=== PATIENT | female | born 1985 | race Caucasian/White ===

== ENCOUNTER 2020-07-09 09:44 | Inpatient (IN) | payer OTHER ==
[2020-07-09] VITALS (16 sets, daily range): BP systolic 77–131; BP diastolic 42–89
[~2020-07-09] VITALS: Ht 170.2 cm; Wt 62.2 kg
[~2020-07-09 09:44] MED LIST: OMEPRAZOLE 20 M20 M1 PO; STOOL SOFTENER100 MG PO; ZYRTEC10 M5 PO
[2020-07-09 10:15] LABS: HCO3 15.3 mmol/L (22.0-26.0); PCO2 78.2 mmHg (35.0-45.0); PO2 473.4 mmHg (80.0-100.0); pH 6.909 (7.360-7.450); sO2 99.7 % (92.0-98.0)
[2020-07-09 10:25] LABS: BASOPHILS 0.8 % (0.0-2.0); HEMATOCRIT 28.1 % (37.0-47.0); HEMOGLOBIN 8.4 gm/dL (12.0-15.0); LYMPHOCYTES 39.9 % (24.0-44.0); MCH 26.1 pg (26.0-34.0); MCHC 29.8 g/dL (28.0-37.0); MCV 87.4 fL (80.0-100.0); MONOCYTES 9.8 % (1.0-8.0); PLATELET COUNT 253 thou/uL (150-400); POLYS 48.5 % (36.0-66.0); RBC 3.22 mil/uL (4.20-5.00); RDW 16.8 % (10.5-14.5); WBC 18.7 thou/uL (4.0-11.0)
[2020-07-09 10:41] LABS: CALCIUM 8.8 mg/dL (8.5-10.1); CREATININE 1.3 mg/dL (0.6-1.0); POTASSIUM 4.2 mmol/L (3.5-5.1)
[2020-07-09 10:52] LABS: ALBUMIN 2.9 g/dL (3.4-5.0); MAGNESIUM 2.3 mg/dL (1.8-2.4); TOTAL BILIRUBIN 0.5 mg/dL (0.2-1.0); TOTAL PROTEIN 6.2 g/dL (6.4-8.2); TROPONIN-I 0.08 ng/mL (<0.06)
[2020-07-09 11:49] LABS: URINE BILIRUBIN NEGATIVE (Negative); URINE BLOOD 1+ (Negative); URINE CLARITY CLEAR; URINE COLOR YELLOW; URINE GLUCOSE-RANDOM* NEGATIVE (Negative); URINE KETONES TRACE (Negative); URINE LEUKOCYTES-REFLEX NEGATIVE (Negative); URINE NITRITE-REFLEX NEGATIVE (Negative); URINE PROTEIN (DIPSTICK) 2+ (Negative); URINE UROBILINOGEN 0.2 E.U./dl (0.2-1.0)
[2020-07-09 11:58] LABS: AMP/METHAMP Negative (Negative); BARBITURATES Negative (Negative); BENZODIAZEPINES Negative (Negative); COCAINE Negative (Negative); METHADONE Negative (Negative); OPIATES Negative (Negative); PCP Negative (Negative)
[2020-07-09 12:15] LABS: APTT 22.7 Seconds (24.5-32.8); INR 1.1
[2020-07-09 12:23] LABS: MUCUS >6 Heavy strn/LPF (None Seen); SQUAMOUS 0-3 Few /LPF (0-3)
[2020-07-09 12:24] LABS: BACTERIA-REFLEX 1-9 Few /HPF (None Seen); CASTS None Seen /LPF (None Seen); CRYSTALS None Seen /LPF (None Seen); URINE RBC 0-2 Rare /HPF (0-2); URINE WBC-REFLEX 0-5 Rare /HPF (0-5)
[2020-07-09 13:43] LABS: HCO3 16.1 mmol/L (22.0-26.0); PCO2 41.1 mmHg (35.0-45.0); PO2 116.7 mmHg (80.0-100.0); sO2 97.4 % (92.0-98.0)
[2020-07-09 13:44] LABS: pH 7.211 (7.360-7.450)
--- NOTE | 2020-07-09 14:17 | NUR ---
CONSULTED TO PLACE A CENTRAL LINE FOR A PATIENT THAT NEEDES URGENT ACCESS. ORDER NOTED AND CONSENT PER MEDICAL NECESSITY BY DR. HOGAN. THE RIGHT JUGULAR VEIN WAS WIDLEY PATENT. THE PATIENT IS NOT SEDATED AND RESTLESS/INTUBATED. A #6F TRIPLE LUMEN POWER INJECTABLE CENTRAL LINE WAS PLACED PER POLICY AFTER A BEDSIDE TIMEOUT WAS COMPLETED. THE LINE WAS 25CM AND ADVANCED TO 7CM EXTERNAL. A STAT CHEST XRAY CONFIRMED LINE IN ADQQAUTE POSITION. LINE RELEASED FOR USE- PATIENT CONTINUES TO BE RESTLESS- DRESSING NOTED, BLEEDING AT SITE- DRG CHG AND GAUZE PLACED
--- NOTE | 2020-07-09 17:33 | NUR ---
CALLED DAUGHTER (EMERGENCY CONTACT) NO ANSWER JOSI MORALES- BOYFRIEND [phone]
--- NOTE | 2020-07-09 20:07 | NUR ---
1445 REPORT RECEIVED FROM ER NURSE. 1500 PT ARRIVED ON FLOOR WITH ER NURSE, RT AND PAC. PT ON VENT SETTINGS AND SEDATION DRIPS CHARTED. FAMILY ROBBIE MORALES) NOTIFIED. UPDATED ON PT CONDITION.
--- NOTE | 2020-07-09 20:15 | NUR ---
CALLED PHARMACY WITH DR. BETHEA'S ORDERS OF REMDESIVIR "CALL PHARMACY TO DOSE WITH LOADING DOSE AND THEN X5DAYS." PHARMACY STATES THAT THE APPROVAL COMES FROM DR. RIBEIRO, STATES THEY WILL CALL HIM AND CALL THIS RN BACK
[2020-07-10] VITALS (49 sets, daily range): BP systolic 85–139; BP diastolic 48–103
--- NOTE | 2020-07-10 01:30 | NUR ---
SENT [facility] TOP FOR APTT AT 0000 WITH [employer] WHEN DRAWING TYPE AND SCREEN. RECIEVED CALL AT 0100 FROM LAB THAT STATED THEY COULD NOT USE BLUE TOP AND THAT THEY NEEDED ANOTHER, NO REASON GIVEN. [facility]UE [facility] SENT FOR HEPARIN GTT APTT
[2020-07-10 05:36] LABS: BE(vivo) -7.3 mmol/L (-2 to +3); HCO3 17.8 mmol/L (22.0-26.0); PCO2 33.9 mmHg (35.0-45.0); PO2 249.7 mmHg (80.0-100.0); pH 7.338 (7.360-7.450); sO2 99.5 % (92.0-98.0)
[2020-07-10 05:50] LABS: HEMATOCRIT 23.6 % (37.0-47.0); HEMOGLOBIN 7.5 gm/dL (12.0-15.0); MCH 26.4 pg (26.0-34.0); MCHC 31.8 g/dL (28.0-37.0); RBC 2.84 mil/uL (4.20-5.00); RDW 16.9 % (10.5-14.5); WBC 11.3 thou/uL (4.0-11.0)
[2020-07-10 07:39] LABS: CREATININE 0.7 mg/dL (0.6-1.0); POTASSIUM 4.3 mmol/L (3.5-5.1)
[2020-07-10 07:42] LABS: CALCIUM 6.6 mg/dL (8.5-10.1)
--- NOTE | 2020-07-10 11:01 | HC ---
[facility] [place] [address] CONSULTATION Name: ALY JUSTICE Room #: 246-P ADM IN M.R.#: [id number] Admission: 07/09/20 Attend Phys: Brijesh Lazo MD Discharge: Date of : 83 Report #: [id number] THIS REPORT FOR: cc: FAM - Family physician unknown FAM - Family physician unknown Héctor Pryor MD ~ CC: Seamus Yuen [facility] unknown Darron López DATE OF SERVICE: 07/10/2020 INFECTIOUS DISEASE CONSULTATION ATTENDING PHYSICIAN: Dr. Lazo. REASON FOR EVALUATION: COVID-19 infection as well as positive influenza studies. The patient presented in extremis with multiple PEs. HISTORY OF PRESENT ILLNESS: History is gleaned from the chart given the patient's intubated status. A 35-year-old apparently been reasonably healthy, had been feeling fairly well the morning of admission, which was yesterday. At some point became weak, subsequently had a seizure, was found to be quite a bit of distress secondary to chest pain and shortness of breath prior to that as well, stomach pain. On evaluation, she did become agonal and did require resuscitative efforts. She was evaluated including imaging, which showed multiple bilateral pulmonary emboli as well as infiltrates, question of pneumonitis. She did test positive for COVID. It is notable she also tested positive for influenza A and B. 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 She is intubated at this point, maintained on ventilatory support as well as some pressor support due to hemodynamic lability with some hypotension. She was empirically started on antibacterials with Zosyn, given convalescent plasma. ALLERGIES: None known. MEDICATIONS: Currently include dexamethasone, propofol, Zosyn, famotidine, norepinephrine, p.r.n. analgesics, antiemetics, dexmedetomidine. PAST MEDICAL HISTORY: History of anemia, reflux, previous appendectomy. 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 FAMILY HISTORY: Noncontributory. [facility] [address] [place] [address] [facility] #: formerly [facility] IN M.R.#: [id number] Admission: 07/09/20 Attend Phys: Brijesh Lazo MD Discharge: Date of : 83 Report #: [id number] REVIEW OF SYSTEMS: Unobtainable. PHYSICAL EXAMINATION: GENERAL: She does arouse, opens her eyes. She moves her right upper extremity, although it is restrained. She is not evidently trying to communicate. VITAL SIGNS: Temperature 99.6 axillary, pulse 94, respirations 24, blood pressure is 96/62. SKIN: Warm. NECK: Apparently supple. ET and OG tubes in place. LUNGS: Scattered coarse breath sounds. HEART: Borderline tachycardic. I do not appreciate a murmur. ABDOMEN: Soft, may be some mild guarding. There are no peritoneal signs. GENITOURINARY AND RECTAL: Deferred. LABORATORY DATA: Troponin elevated at 0.9. CBC: White count 11.3, H and H 7.5 and 23.6, platelets of 237. ABGs: pH 7.338, pCO2 of 33.9, pO2 of 249.7 with an FiO2 of 0.6 on the vent. Ferritin of 17. LDH of 751. CRP of 13.9. Confirmed COVID positive. Chest x-ray showed multifocal consolidation consistent with pneumonia. CT as described above. TSH of 4.638. Urinalysis, 0-[address] of the head showed no acute process. ProBNP of 384. Alcohol less than 10. Previous differential showed she was not lymphocytopenic. ASSESSMENT AND PLAN: 1. COVID-19 infection, complicated by respiratory failure, multiple pulmonary emboli, possible aspiration pneumonitis. 2. Seizures, likely due to the above with hypoxemia. 3. Positive antigen testing for influenza, although A and B it is not clear if this represents a true positive. We will continue current therapy. If able to use NG, we will add Tamiflu to the regimen, had felt remdesivir may be a benefit as well, although she is critically ill I do not think it is precisely due to the cytokine storm at this point and given the inflammatory markers, I think given all the parameters certainly may be worthwhile to give additional support. Continue to monitor expectantly. We will discuss with Dr. Yuen. <ELECTRONICALLY SIGNED> By: Héctor Pryor MD 07/10/20 1101 0740 0945 Héctor Pryor MD /nt
[2020-07-11] VITALS (92 sets, daily range): BP systolic 83–144; BP diastolic 53–92
[2020-07-11 06:01] LABS: HEMATOCRIT 23.4 % (37.0-47.0); HEMOGLOBIN 7.2 gm/dL (12.0-15.0); MCH 25.5 pg (26.0-34.0); MCHC 30.7 g/dL (28.0-37.0); MCV 83.1 fL (80.0-100.0); RBC 2.81 mil/uL (4.20-5.00); WBC 11.9 thou/uL (4.0-11.0)
[2020-07-11 06:03] LABS: CALCIUM 7.6 mg/dL (8.5-10.1); CREATININE 0.5 mg/dL (0.6-1.0); POTASSIUM 3.8 mmol/L (3.5-5.1)
--- NOTE | 2020-07-11 06:59 | NUR ---
VSS. PATIENT SR/SB ON MONITOR. BLOOD PRESSURE MAINTAINED ON LEVO GTT. SEDATED ON PRECEDEX, FENTANYL, AND PROPOFOL GTTS. TOTAL URINE OUTPUT OVERNIGHT IS 1000 CC. BLOOD GLUCOSE 110. PATIENT ON HEPARIN GTT. PATIENT FOLLOWS COMMANDS DURING SEDATION VACATION. UPDATED FAMILY VIA PHONE THIS SHIFT. PATIENT PROGRESSING TOWARDS PLAN OF CARE.
--- NOTE | 2020-07-11 07:33 | EKG ---
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[facility] 1985 Requested By: Seamus Skelton Order Number: [id number] MD: Familia Everett Measurements Intervals [place] Rate: 112 P: 85 LA: 131 QRS: 66 QRSD: 103 T: 29 QT: 296 QTc: 404 Interpretive Statements Sinus tachycardia Ventricular premature complexes RSR' in V1 or V2, probably normal variant No previous ECG available for comparison Electronically Signed On 07-11-2020 7:33:39 CDT by Familia Everett [email or web address] <ELECTRONICALLY SIGNED> By: Familia Everett MD, FACC 07/11/20 0733 1008 1008 Familia Everett MD, [facility] /EPI
[2020-07-11 12:27] LABS: ALBUMIN 2.2 g/dL (3.4-5.0); DIRECT BILIRUBIN 0.2 mg/dL (<0.1-0.2); TOTAL BILIRUBIN 0.4 mg/dL (0.2-1.0); TOTAL PROTEIN 5.1 g/dL (6.4-8.2)
--- NOTE | 2020-07-11 15:30 | NUR ---
chart review. cm unable to visit with tania wilde r/o and + for flu a and b conserving on ppe. she is intubated. jeffrey visited with sig juhi nickolas, daughter listed is only 4 years old, just would like updates since she is family person, i am only link to be able to give her mom and sister information in [place], that's were she is from. she was independent prior to hospital and few days ago was going in for egd and did not go well, they took her to [facility] and then was set up for another on tomorrow. since i was told not able to get her personal belonging would like them locked up with security. i am able to care for out medhat while she in the hospital. rodo and out daughter live in apartment with full fight stairs up to apartment then the wash area. she was independent prior to hospital per nickolas. jeffrey passed on information to bedside nurse to call sig other for question. will cont following as needed for dc needs.
--- NOTE | 2020-07-11 19:51 | NUR ---
ASSUMED CARE AT 0700. ADEQUATE UOP. SMALL BM TODAY. TEMPERATURE UNABLE TO BE OBTAINED THROUGHOUT THE DAY. МАРИНА HUGGER IN PLACE. POTENTIAL FOR CPAP TRIAL TOMORROW. VENTILATOR SETTINGS UNCHANGED. HEPARIN GTT, PROPOFOL GTT, FENTANYL GTT IN PLACE. PATIENT WEANED OFF LEVOPHED AND PRECEDEX AND TOLERATED IT WELL. SEDATION VACATION TOLERATED WELL. SIGNIFICANT OTHER WAS UPDATED AND EDUCATED ON PATIENT CONDITION AND PLAN OF CARE AT 0815. WOULD LIKE TO BE UPDATED BY NURSING STAFF ONCE A DAY ON PATIENT. CVP MONITOR IN PLACE. PATIENT SLOWLY PROGRESSING TOWARDS THE PLAN OF CARE.
[2020-07-12] VITALS (82 sets, daily range): BP systolic 68–161; BP diastolic 34–139
[2020-07-12 06:32] LABS: MCH 26.7 pg (26.0-34.0); MCHC 32.6 g/dL (28.0-37.0); MCV 81.8 fL (80.0-100.0); RBC 2.35 mil/uL (4.20-5.00); RDW 17.4 % (10.5-14.5); WBC 10.8 thou/uL (4.0-11.0)
[2020-07-12 06:37] LABS: CALCIUM 7.7 mg/dL (8.5-10.1); CREATININE 0.6 mg/dL (0.6-1.0); POTASSIUM 3.6 mmol/L (3.5-5.1)
[2020-07-12 06:45] LABS: HEMATOCRIT 19.2 % (37.0-47.0); HEMOGLOBIN 6.3 gm/dL (12.0-15.0)
[2020-07-12 09:15] LABS: BE(vivo) -5.5 mmol/L (-2 to +3); PCO2 32.1 mmHg (35.0-45.0); PO2 121.2 mmHg (80.0-100.0); pH 7.389 (7.360-7.450); sO2 98.4 % (92.0-98.0)
--- NOTE | 2020-07-12 12:00 | NUR ---
0730 FLUID BOLUS GIVEN FOR LOW BP AND MAP. 0745 TRISTEN PAGED FOR HGB 6.3, ORDERS TO GIVE 2 UNITS AND RECHECK CBC. 1030 FAMILY FROM [facility] CALLED, CONFIRM WAS SISTER, SHE KNEW PT FULL NAME AND , DAUGHTER FULL NAME, PT SIG OTHER NAME, AND WHAT CITY PT RESIDES IN. FRITZ MORLEY MOTHER LIVES IN [facility]-[phone] HORACIO HUNT SISTER LIVES IN [facility]-[phone] 1015 1 UNIT OF BLOOD STARTED.
[2020-07-12 13:12] LABS: % SATURATION 14 % (20-39); IRON 28 ug/dL (50-170); TIBC 203 ug/dL (250-450)
[2020-07-12 14:59] LABS: HEMATOCRIT 27.3 % (37.0-47.0); MCV 84.7 fL (80.0-100.0); RBC 3.23 mil/uL (4.20-5.00); RDW 16.7 % (10.5-14.5); WBC 14.7 thou/uL (4.0-11.0)
[2020-07-13] VITALS (104 sets, daily range): BP systolic 90–123; BP diastolic 55–82
[2020-07-13 06:13] LABS: HEMATOCRIT 27.4 % (37.0-47.0); HEMOGLOBIN 8.9 gm/dL (12.0-15.0); MCH 27.7 pg (26.0-34.0); MCHC 32.6 g/dL (28.0-37.0); MCV 84.9 fL (80.0-100.0); RBC 3.23 mil/uL (4.20-5.00); RDW 16.2 % (10.5-14.5); WBC 14.9 thou/uL (4.0-11.0)
[2020-07-13 06:46] LABS: CALCIUM 8.2 mg/dL (8.5-10.1); CREATININE 0.8 mg/dL (0.6-1.0); POTASSIUM 3.4 mmol/L (3.5-5.1)
--- NOTE | 2020-07-13 14:13 | 2DMMODE ---
[facility] [address] [place] [address] 2 D/M-MODE ECHOCARDIOGRAM Name: ALY JUSTICE Room #: 246-P ADM IN M.R.#: [id number] Admission: 07/09/20 Attend Phys: Brijesh Lazo MD Discharge: Date of : 83 Report #: [id number] THIS REPORT FOR: cc: FAM - Family physician unknown FAM - Family physician unknown Darron Ashton MD ~ APPROVED REPORT Study performed: 07/13/2020 12:54:01 EXAM: Comprehensive 2D, Doppler, and color-flow Echocardiogram Patient Location: ICU Room #: 246 Status: routine BSA: 1.91 HR: 76 bpm BP: 102/67 mmHg Rhythm: NSR Other Information Study Quality: Good; patient on vent. Indications Pulmonary Embolism Check PA pressures, hypotension. 2D Dimensions RVDd: 38.90 mm IVSd: 10.21 (7-11mm) LVOT Diam: 20.31 (18-24mm) LVDd: 31.76 mm PWd: 8.26 (7-11mm) Ascending Ao: 28.35 (22-36mm) LVDs: 21.59 (25-40mm) Aortic Root: 31.13 mm Volumes Left Atrial Volume (Systole) Single Plane 4CH: 23.56 mL Single Plane 2CH: 37.43 mL LA ESV Index: 18.00 mL/m2 Aortic Valve AoV Peak Fly.: 1.11 m/s AO Peak Gr.: 4.89 mmHg LVOT Max P.10 mmHg LVOT Max V: 1.01 m/s SASHA Vmax: 2.97 cm2 [facility] [address] [place] [address] 2 D/M-MODE ECHOCARDIOGRAM Name: ALY JUSTICE Room #: 246-P [facility] IN Roselyn.#: [id number] Admission: 07/09/20 Attend Phys: Brijesh Lazo MD Discharge: Date of : 83 Report #: [id number] Mitral Valve E/A Ratio: 1.5 MV Decel. Time: 217.14 ms MV E Max Fly.: 0.74 m/s MV A Fly.: 0.51 m/s MV PHT: 62.97 ms IVRT: 110.73 ms Pulmonary Valve PV Peak Fly.: 0.88 m/s PV Peak Gr.: 3.10 mmHg Pulmonary Vein P Vein S: 0.49 m/s P Vein A: 0.25 m/s P Vein D: 0.31 m/s P Vein A Dur.: 115.3 msec P Vein S/D Ratio: 1.58 Tricuspid Valve TR Peak Fly.: 2.96 m/s RAP Estimate: 10.00 mmHg TR Peak Gr.: 35.14 mmHg PA Pressure: 45.00 mmHg Left Ventricle The left ventricle is normal size. There is normal LV segmental wall motion. There is normal left ventricular wall thickness. The left ventricular systolic function is normal. LVEF is 55-60%. The left ventricular diastolic function is normal. Right Ventricle The right ventricle is normal size. The right ventricular systolic function is normal. Atria The left atrium size is normal. The right atrium size is normal. Aortic Valve The aortic valve is normal in structure. No aortic regurgitation is present. There is no aortic valvular stenosis. Mitral Valve The mitral valve is normal in structure. There is no mitral valve regurgitation noted. No evidence of mitral valve stenosis. Tricuspid Valve The tricuspid valve is normal in structure. Mild tricuspid [facility] [address] [place] [address] 2 D/M-MODE ECHOCARDIOGRAM Name: ALY JUSTICE Room #: 246-P ADM IN M.R.#: [id number] Admission: 07/09/20 Attend Phys: Brijesh Lazo MD Discharge: Date of : 83 Report #: [id number] regurgitation. Estimated PAP 45mmHg. Pulmonic Valve The pulmonary valve is normal in structure. Mild pulmonic regurgitation. Great Vessels The aortic root is normal in size. The ascending aorta is normal in size. IVC is normal in size and collapses <50% with inspiration. Pericardium There is no pericardial effusion. <Conclusion> The left ventricle is normal size. The right ventricular systolic function is normal. The right ventricle is normal size. The aortic valve is normal in structure. The mitral valve is normal in structure. The tricuspid valve is normal in structure. Mild tricuspid regurgitation. Estimated PAP 45mmHg. The pulmonary valve is normal in structure. Mild pulmonic regurgitation. There is no pericardial effusion. <ELECTRONICALLY SIGNED> By: Darron Ashton MD 07/13/201412 12 12 Darron Ashton MD /INF
--- NOTE | 2020-07-13 15:34 | NUR ---
APPROACHED BY GI AIR LIFT OPERATOR JORDYN ODONNELL AND UPDATED. PT HAD EGD TODAY SHOWING GASTRIC MASS SUSPICIOUS FOR MALIGNACY, BX PENDING. DR. HINDS HAS CONSULTED ONC AND SURGERY. DR. HINDS SPOKE WITH PT'S MOTHER BY PHONE (LIVES IN [place]) AND MOTHER INQUIRING ABOUT EMERGENCY VISA TO COME TO US. JORDYN INDICATES GI PHYSICIAN WILL ASSIST IF NEEDED FOR MEDICAL VERIFICATION TO SUPPORT REQUEST FOR EMERGENCY VISA. DISCUSSED WITH CM DIRECTOR. CM TO FOLLOW.
--- NOTE | 2020-07-13 19:22 | NUR ---
ASSUMED CARE AT 0700. AFEBRILE. NO BM. VENTILATOR SETTINGS UNCHANGED. PATIENT'S SIGNIFICANT OTHER VISITED AT 1650 AND WAS UPDATED AND EDUCATED ON THE PLAN OF CARE AND PATIENT CONDITION. ENDOSCOPY PERFORMED FROM [id number]. PROPOFOL, PRECEDEX, FENTANYL GTT IN PLACE. HEPARIN GTT IN PLACE. PATIENT TAKEN OUT OF ISOLATION DUE TO 2 NEGATIVE COVID TESTS. TUBE FEEDING BY GRAVITY INITIATED. ADEQUATE UOP. NO CPAP TRIAL TODAY. NO SEDATION VACATION. PATIENT SLOWLY PROGRESSING TOWARDS THE PLAN OF CARE.
[2020-07-14] VITALS (43 sets, daily range): BP systolic 87–118; BP diastolic 45–80
[2020-07-14 02:15] LABS: HEMATOCRIT 25.2 % (37.0-47.0); HEMOGLOBIN 8.2 gm/dL (12.0-15.0); MCH 27.3 pg (26.0-34.0); MCHC 32.7 g/dL (28.0-37.0); MCV 83.7 fL (80.0-100.0); RBC 3.01 mil/uL (4.20-5.00); RDW 17.1 % (10.5-14.5); WBC 11.4 thou/uL (4.0-11.0)
[2020-07-14 02:18] LABS: CALCIUM 7.7 mg/dL (8.5-10.1); CREATININE 0.6 mg/dL (0.6-1.0)
[2020-07-14 02:20] LABS: POTASSIUM 2.9 mmol/L (3.5-5.1)
--- NOTE | 2020-07-14 08:01 | P ---
[facility] [place] [address] PROCEDURE REPORT Name: ALY JUSTICE Room #: 246-P ADM IN M.R.#: [id number] Admission: 07/09/20 Attend Phys: Brijesh Lazo MD Discharge: Date of : 83 Report #: [id number] THIS REPORT FOR: cc: FAM - Family physician unknown FAM - Family physician unknown Jack Woods MD ~ CC: Seamus FLEMING unknown Darron López DATE OF SERVICE: 07/13/2020 UPPER ENDOSCOPY REPORT TIME: 1500 hours in ICU. BED: 246 INDICATIONS: Nausea, vomiting, weight loss, anemia and suspicion of gastric outlet obstruction. The upper adult endoscope was introduced through the mouth, down the esophagus, through the stomach to the second portion of the duodenum and carefully withdrawn for careful inspection. Propofol was used for sedation at the bedside. FINDINGS: 1. A large fungating ulcerated mass at the gastric antrum extending into the first portion of the duodenum suspicious for malignancy with a partially obstructing gastric mass. Biopsies were obtained from the mass. There was about 500 mL of brown fluid suctioned from the gastric fundus. The esophagus was normal. The second portion of the duodenum were normal. RECOMMENDATIONS: To await biopsy results. Obtain a CT abdomen and pelvis for staging. Consult Oncology and Surgery and to do H. pylori stool antigen and treat if positive. The exam was completed. There were no complications. <ELECTRONICALLY SIGNED> By: Jack Woods MD 07/14/20 0801 1509 [id number] Jack Woods MD /kelly
--- NOTE | 2020-07-14 09:15 | NUR ---
ASSUMMED CARE FROM THE NIGHT RN. PATIENT IS SEDATED. SEDATION VACATION 0830 TO 0910. MONITOR SR TO ST WITH RATE UP TO 110 TO 120. BP SLIGHTLY HIGHER. COUGHING AND VOMITING UP PARTIALLY DIGESTED TUBE FEEDING. RESP RATE IN THE UPPER 20'S. WILL FOLLOW SIMPLE COMMANDS, BUT VERY WEAK. TUBE FEEDING BOLUS HELD FOR ELEVATED RESIDUALS. PROPOFOL DECREASED.
--- NOTE | 2020-07-14 13:00 | NUR ---
REPEAT POTASSIUM OF 3.[address] RAMON. ORDERS NOTED. IVF CHANGED AND POTASSIUM DRIP HUNG.
--- NOTE | 2020-07-14 14:28 | NUR ---
cm has letter for tania frankel. cm called sig other nickolas, no answer and voice mail is not set up.
--- NOTE | 2020-07-14 15:00 | NUR ---
PATIENT PLACED ON CPAP TRIAL WITH 5 CM OF PEEP AND 5 CM OF PRESSURE SUPPORT. PRECEDEX INCREASED TO 0.8 MCG/KG/HR. RESP RATE IN THE LOWER 30'S, HEART RATE IN THE 110'S. CONTINOUS HARSH COUGHING, VOMITING AND O2 SAT DECREASING. OG TO LIS FROM TUBE FEEDING AND CPAP TRIAL ABORTED.
--- NOTE | 2020-07-14 19:15 | NUR ---
PATIENT CONTINUES TO HAVE PROLONGED HARSH COUGHING EPISODES. LIPS AND NECK ARE MORE SWOLLEN AND EDEMATOUS THAN EARLIER. DR BROWER NOTIFIED PATIENT HAD RECEIVED PIPERCILLIN. OGT REMAINS TO LIS. REPEAT POTASSIUM WITHIN PARAMATERS. INCONTIENT OF A SM LIQUID YELLOW BROWN STOOL, SOAKED INTO PAD. FORMER IN AND UPDATED ON PATIENT STATUS. HEPARIN DRIP AND SEDATION CONTINUE.
--- NOTE | 2020-07-14 21:36 | NUR ---
[address] HURLEY OF POSITIVE SICKLE CELL RESULTS AND RECCOMENDATION FROM [facility] FOR HEMOGLOBIN FRACTIONATION TESTING. WILL DEFER TO DR BRAR AT THIS TIME.
[2020-07-15] VITALS (45 sets, daily range): BP systolic 88–108; BP diastolic 53–68
[2020-07-15 04:53] LABS: CALCIUM 7.9 mg/dL (8.5-10.1); CREATININE 0.6 mg/dL (0.6-1.0); POTASSIUM 3.5 mmol/L (3.5-5.1)
[2020-07-15 05:33] LABS: HEMATOCRIT 23.7 % (37.0-47.0); HEMOGLOBIN 7.8 gm/dL (12.0-15.0); MCH 27.3 pg (26.0-34.0); MCHC 32.9 g/dL (28.0-37.0); RBC 2.86 mil/uL (4.20-5.00); RDW 17.6 % (10.5-14.5)
--- NOTE | 2020-07-15 06:48 | HC ---
[facility] [place] [address] CONSULTATION Name: ALY JUSTICE Room #: 246-P ADM IN M.R.#: [id number] Admission: 07/09/20 Attend Phys: Brijesh Lazo MD Discharge: Date of : 83 Report #: [id number] THIS REPORT FOR: cc: FAM - Family physician unknown FAM - Family physician unknown Estuardo Guajardo MD ~ DATE OF SERVICE: 07/14/2020 REQUESTING PHYSICIAN: Brijesh Lazo MD REASON FOR CONSULTATION: Gastric mass. HISTORY OF PRESENT ILLNESS: The patient is a 35-year-old -Martiniquais female on the mechanical respiratory ventilator at [facility] ICU room #246. She reportedly presented to the Emergency Room with what may have been a seizure with loss of consciousness in the outpatient setting. The patient may have been "unconscious" for about 10 minutes, then woke up and answered some questions, transported to the ED, appeared less responsive, but was not following commands. The patient had been seen at [facility] several days before this admission with complaints of abdominal pain and difficulty eating and swallowing. 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 The patient was noted to be tachycardic, tachypneic and in acute respiratory distress in the ED and was electively intubated. She also had some bradycardia. She also received IV Keppra. The patient had an EGD by Dr. Jack Woods, which found a partially obstructing gastric mass suspicious for malignancy, this was on 07/13. We are awaiting biopsies. CT chest done earlier this admit did not show any acute abnormalities. There were multiple acute pulmonary emboli within the segmental and subsegmental pulmonary arteries with a left lower lobe and right lower lobe and right middle lobe. No findings of right heart strain. Note that the patient has been COVID tested negative, though she has been influenza positive. She also had ultrasounds of the lower extremities that showed no evidence of DVT. LABORATORY DATA: Notable for BUN 8, creatinine 0.6. AST as mentioned above trending down, ALT trending down. Total bilirubin 0.4 at admit. LDH was elevated at 751. Iron on admit was low at 28, TIBC low at 203. Percent iron saturation 14%, low. Coags baseline were normal. Urine drug screen was negative. White count on admit was 18.7, is currently 11.4; hemoglobin had been 8.4 is today 8.2. MCV, which has been stable in the 87, now 83 range since admit; platelets 185. Differential had been unremarkable. Sickle screen pending. Influenza A and B positive. COVID antigen reportedly positive. TSH 4.63. Ferritin 17. CEA pending. HIV screen was negative. UA unrevealing. [facility] [address] [place] [address] CONSULTATION Name: ALY JUSTICE Room #: 246-P ADM IN M.Ajith.#: [id number] Admission: 07/09/20 Attend Phys: Brijesh Lazo MD Discharge: Date of : 83 Report #: [id number] PHYSICAL EXAMINATION: GENERAL: The patient appears her stated age. She is on the ventilator in the ICU. VITAL SIGNS: Height is reported ____ 160-170 cm. Weight has been reported recently is 173 pounds, which is 78.7 kg. Vital signs are blood pressure 89/52 with 100% O2 sats, pulse of 99, respirations 24, afebrile at 97.6, currently on mechanical ventilation at 30%. NEUROLOGIC: Face appears symmetrical. No obvious bleeding from the nares or mouth. LYMPHATICS: No enlarged lymph nodes on exam in the supraclavicular, cervical, axillary or inguinal region. ABDOMEN: Slightly obese. No organomegaly or masses noted. EXTREMITIES: Have SCDs in place. No notable edema. ASSESSMENT AND PLAN: 1. Gastric mass, awaiting pathology to determine plan and also staging. 2. Bilateral pulmonary emboli, anticoagulations as tolerated. 3. Respiratory failure, mechanical ventilation. 4. Anemia. Continue monitoring, may need to consider replacing of iron. 5. Pneumonitis. Continue anti-infectives per Infectious Disease. We will follow with you. ADDENDUM CURRENT MEDICATIONS: Include pantoprazole 40 mg b.i.d., heparin on a drip, also norepinephrine, vasopressin p.r.n., propofol as needed, insulin sliding scale, Zosyn q. 8, chlorhexidine mouthwash, dexmedetomidine titrate, p.r.n. midazolam, morphine, Tylenol, Zofran. <ELECTRONICALLY SIGNED> By: Estuardo Guajardo MD 07/15/20 0648 0857 1133 Estuardo Guajardo MD /nt
--- NOTE | 2020-07-15 09:10 | NUR ---
If tube feed able to resume, recommend vital high protein at goal 60ml/rh. Avoid using bolus feeds since pt has had emesis. prefer pump if available. ? if emesis related to gastric mass. In that case, consider transition to TPN at 80ml/hr (15%dex, 5%AA, no lipids)
--- NOTE | 2020-07-15 10:39 | NUR ---
ASSUMED CARE OF PT AT 0645. 1040 LEFT UNIT FOR IVC FILTER, PLACED IN IR
[2020-07-15 10:48] LABS: BE(vivo) -2.7 mmol/L (-2 to +3); PO2 85.4 mmHg (80.0-100.0); pH 7.435 (7.360-7.450); sO2 96.8 % (92.0-98.0)
--- NOTE | 2020-07-15 12:41 | NUR ---
ASSUMED PATIENT AT 0600- PATIENT RESTING ON VENITLATOR SHOWING NO SIGNS OF DISTRESS AT THIS TIME. ABG OBTAINED AND RESULTS GIVEN TO DR MALCOLM. NO CHANGES MADE TO VENTILATOR DURING MY SHIFT. WILL CONTINUE VENTS CHECKS AND MONITOR.
--- NOTE | 2020-07-15 14:15 | NUR ---
chart review. she still requiring vent, tf for nutritional support if she can tolerate if not possible will need tpn. not anticipated dc over the weekend. jeffrey spoke with tanesha olmos, requested to have letters e-mailed to [email or web address] then original letters need to be in envelope with [facility] logo on it to be mail' to elana wilcox so maryann mom and sister can hopefully get their emergency visa to come be with maryann. will cont following as needed for dc needs.
--- NOTE | 2020-07-15 18:06 | PATH ---
[facility] [address] [place] [address] PATHOLOGY RPT PROCEDURE Name: ALY JUSTICE Room #: 246-P ADM IN M.R.#: [id number] Admission: 07/09/20 Date of : 83 Discharge: Report #: [id number] Path Case #: [id number] LCA Accession Number: [id number] . 01 Material submitted: . stomach - BX OF GASTRIC MASS . 01 Clinical history: . RESPIRATORY FAILURE, PE, ACIDOSIS, PUI . 02 Diagnosis: Gastric mucosa, "gastric mass", endoscopic biopsy: - Moderate chronic gastritis with hyperplastic surface epithelium. - Negative for intestinal metaplasia or atrophy. - Negative for Helicobacter pylori (properly controlled immunohistochemical performed). (IUV:pit 07/15/2020) QTP 07/15/2020 1241 Local . 02 Electronically signed: . Nancy Kelly MD, Pathologist NPI- [id number] . 01 Gross description: . Received in formalin labeled "Arjun, Aly, BX of gastric mass" are two langley-brown soft tissue fragments measuring in aggregate 0.6 x 0.3 x 0.1 cm. The specimen is submitted entirely in A1. [place] [place] [facility] 07/14/2020 1144 Local . 02 Pathologist provided ICD-10: K29.50 . 02 CPT . 442425, [id number] Specimen Comment: A courtesy copy of this report has been sent to [phone] Specimen Comment: [id number] Specimen Comment: Report sent to / DR RAMON Performed at: [address], [place] [id number] MD Joe Bess MD Phone: [phone] Performed at: [address] [id number] MD Nancy Kelly MD Phone: [phone]
--- NOTE | 2020-07-15 23:24 | NUR ---
UPON INTITAL ASSESSMENT, PT WAS RESTING CALMLY IN BED WITH FENTANYL, PROPOFOL, AND PRECEDEX GTTS FOR SEDATION/VENT MANAGEMENT. SEDATION WAS PLACED ON HOLD FOR SEDATION VACATION. PT OPENED EYES SPONTANEOUSLY AND ATTEMPTED TO SWQUEEZE LEFT HAND ON COMMAND. SHE DID GRIMACE WITH PAINFUL STIMULI. SHE DID NOT TOLERATE SEDATION VACATION FOR MORE THAN 5 MIN, SHE STARTED COUGHING AND HAVING MEDIUM TO LARGE AMOUNTS OF ET SECRETIONS. SEDATION RESUMED. PT HAD SMALL BOWEL MOVEMENT. SAMPLE SENT TO LAB. COMPLETE BED BATH GIVEN. AROUND 2245 PT HAD FEVER OF 102.1. NOTIFIED NAPHTHALENE STILL OPERATOR IN[employer]UMENT [employer]CH[employer]ICS SUPERVISOR FOR HOSPITALIST. TYLENOL SUPPOSITORY GIVEN ORDERED. WILL REASSESS TEMP.
[2020-07-16] VITALS (47 sets, daily range): BP systolic 90–123; BP diastolic 46–103
[2020-07-16 05:36] LABS: HEMATOCRIT 24.4 % (37.0-47.0); HEMOGLOBIN 7.9 gm/dL (12.0-15.0); MCH 27.3 pg (26.0-34.0); MCHC 32.5 g/dL (28.0-37.0); RBC 2.91 mil/uL (4.20-5.00); WBC 12.9 thou/uL (4.0-11.0)
--- NOTE | 2020-07-16 05:39 | NUR ---
PT REMAINS LIGHTLY SEDATED ON THE VENT. SHE DOES HAVE SIGNIFICANT COUGHING EPISODES WITH ANY DECREASE IN SEDATION OR WITH STIMULATION. PT DID HAVE ONE EPISODE OF VOMITING AFTER COUGHING THIS MORNING. PRN ZOFRAN GIVEN. OGT TO LIS. FEVER HAS IMPROVED. TEMP NOW LESS THAN 100. REPOSITIONED TO PREVENT SKIN BREAKDOWN. FREQUENT ORAL CARE PROVIDED. ADEQUATE UO VIA YUEN. NOT PROGRESSING WELL TOWARD POC GOALS. WILL GIVE REPORT TO ONCOMING NURSE.
[2020-07-16 05:45] LABS: CALCIUM 8.3 mg/dL (8.5-10.1); CREATININE 0.6 mg/dL (0.6-1.0); MAGNESIUM 1.9 mg/dL (1.8-2.4); POTASSIUM 4.1 mmol/L (3.5-5.1)
--- NOTE | 2020-07-16 09:00 | NUR ---
ASSUMMED CARE FROM DOMENIC FERREIRA, NIGHT NURSE. PATIENT REMAINS SEDATED FOR VENT MANAGEMENT. FORMER CALLED IN AND UPDATED ON THE PATIENT'S STATUS. TUBE FEEDINGS REMAIN ON HOLD.
[2020-07-16 11:13] LABS: BE(vivo) -5.2 mmol/L (-2 to +3); HCO3 18.9 mmol/L (22.0-26.0); PCO2 31.4 mmHg (35.0-45.0); PO2 87.3 mmHg (80.0-100.0); pH 7.398 (7.360-7.450); sO2 96.8 % (92.0-98.0)
--- NOTE | 2020-07-16 23:02 | NUR ---
PT DID NOT TOLERATED SEDATION VACATION DURING INITAL ASSESSMENT. SHE HAD A SIGNIFICANT COUGHING EPISODE WITH MODERATE AMOUNT OF SECRETIONS FROM ETT. O2 SATS REMAINED STABLE ON 40% FIO2. PRN ZOFRAN GIVEN TO PREVENT VOMITING FROM STRONG COUGH AND GAG REFLEX. PT REQUIRED INCREASED SEDATION TO HELP HER RELAX ENOUGH TO STOP COUGHING. PT IS NOW RESTING CALMLY, SEDATED WITH FENTANYL, PROPOFOL, AND PRECEDEX DRIPS. PPN INFUSING PER DR ORDER. BILATERAL SOFT WRIST RESTRAINTS REMAIN IN PLACE. WILL CONTINUE TO MONITOR DURING THE NIGHT.
[2020-07-17] VITALS (39 sets, daily range): BP systolic 79–112; BP diastolic 42–72
[2020-07-17 03:45] LABS: BE(vivo) -3.6 mmol/L (-2 to +3); HCO3 20.4 mmol/L (22.0-26.0); PCO2 32.3 mmHg (35.0-45.0); PO2 71.7 mmHg (80.0-100.0); pH 7.418 (7.360-7.450); sO2 94.9 % (92.0-98.0)
[2020-07-17 05:27] LABS: ABSOLUTE NEUTROPHILS 8.4 thou/uL (1.4-8.2); BASOPHILS 0.3 % (0.0-2.0); EOSINOPHILS 2.7 % (0.0-3.0); HEMATOCRIT 24.1 % (37.0-47.0); HEMOGLOBIN 7.8 gm/dL (12.0-15.0); LYMPHOCYTES 15.4 % (24.0-44.0); MCH 26.8 pg (26.0-34.0); MCHC 32.4 g/dL (28.0-37.0); MCV 82.7 fL (80.0-100.0); MONOCYTES 8.5 % (1.0-8.0); PLATELET COUNT 215 thou/uL (150-400); POLYS 73.1 % (36.0-66.0); RBC 2.92 mil/uL (4.20-5.00); RDW 18.1 % (10.5-14.5); WBC 11.5 thou/uL (4.0-11.0)
[2020-07-17 05:59] LABS: ALBUMIN 1.4 g/dL (3.4-5.0); CALCIUM 8.4 mg/dL (8.5-10.1); CREATININE 0.7 mg/dL (0.6-1.0); MAGNESIUM 1.8 mg/dL (1.8-2.4); POTASSIUM 3.9 mmol/L (3.5-5.1); TOTAL BILIRUBIN 0.5 mg/dL (0.2-1.0); TOTAL PROTEIN 5.5 g/dL (6.4-8.2)
--- NOTE | 2020-07-17 06:05 | NUR ---
NO SIGNIFICANT CHANGES DURING THE NIGHT. PT IS STILL SEDATED ON THE VENT. SHE WAS GIVEN PRN VERSED AND ZOFRAN THIS MORNING SHE WAS HAVING A SEVERE COUGHING EPISODE AND THERE WAS CONCERN THAT HER STRONG GAG REFLUX WOULD CAUSE N/V. COUGHING IMPROVED AFTER PRN MEDS WERE GIVEN. YUEN WITH ADEQUATE URINE OUTPUT. PT REMAINS IN BILATERAL SOFT WRIST RESTRAINTS TO PREVENT DISCONNECTING ANY LINES/TUBES. GOOD URINE OUTPUT VIA YUEN. MINIMAL OUTPUT VIA OGT. NOT PROGRESSING WELL TOWARD POC GOALS. WILL GIVE REPORT TO ONCOMING NURSE.
--- NOTE | 2020-07-17 07:51 | NUR ---
ASSUMMED CARE AT 0700 FROM NIGHT NURSE, DOMENIC FERREIRA. PATIENT IS RESTING QUIETLY WITH SEDATION. DR DONALDSON IN TO SEE PATIENT, THIS NURSE WITH PATIENT FOR BREAST EXAM.
--- NOTE | 2020-07-17 14:00 | NUR ---
Zofran given earlier for potential CPAP trial, to prevent vomiting with coughing. Boyfriend here and spoke with Dr. Fermin concerning CT scan results. Patient remains sedated and resting quietly. VSS.
--- NOTE | 2020-07-17 23:04 | NUR ---
2129 - PT'S SIGNIFICANT OTHER (ROBBIE MORALES) CALLED UNIT. UPDATED PROVIDED ON PT'S STATUS THIS EVENING. PT CONTINUES TO HAVE STRONG COUGHING EPISODES WITH STIMULATION. SMALL TO MEDIUM SECRETIONS SUCTIONED FROM ETT. INCREASED SEDATION SLIGHTLY. PT WAS ALSO GIVEN PRN VERSED TO HELP HER RELAX. SHE HAS SINCE BEEN COUGHING LESS. SPO2 DOES DECREASE INTO THE 80S WITH SEVERE COUGHING EPISODES. TYLENOL SUPPOSITORY GIVEN FOR FEVER. GOOD URINE OUTPUT VIA YUEN. WILL CONTINUE TO MONITOR CLOSELY.
[2020-07-18] VITALS (49 sets, daily range): BP systolic 87–124; BP diastolic 47–78
--- NOTE | 2020-07-18 04:53 | NUR ---
PT HAS BEEN RESTING WELL DURING THE NIGHT SINCE SEDATION WAS INCREASED. FEVER IMPROVED AFTER PT WAS GIVEN TYLENOL. ORAL CARE PROVIDED. REPOSITIONED TO PREVENT SKIN BREAKDOWN. NOT PROGRESSING WELL TOWARD POC GOALS.
[2020-07-18 05:49] LABS: HEMATOCRIT 23.6 % (37.0-47.0); HEMOGLOBIN 7.6 gm/dL (12.0-15.0); MCH 26.6 pg (26.0-34.0); MCHC 32.1 g/dL (28.0-37.0); MCV 82.9 fL (80.0-100.0); RBC 2.85 mil/uL (4.20-5.00); RDW 19.2 % (10.5-14.5); WBC 12.9 thou/uL (4.0-11.0)
[2020-07-18 05:53] LABS: CALCIUM 8.1 mg/dL (8.5-10.1); CREATININE 0.6 mg/dL (0.6-1.0); MAGNESIUM 1.7 mg/dL (1.8-2.4); POTASSIUM 3.8 mmol/L (3.5-5.1)
[2020-07-18 10:32] LABS: BE(vivo) 0.3 mmol/L (-2 to +3); HCO3 24.1 mmol/L (22.0-26.0); PCO2 35.2 mmHg (35.0-45.0); PO2 60.2 mmHg (80.0-100.0); pH 7.454 (7.360-7.450); sO2 92.4 % (92.0-98.0)
--- NOTE | 2020-07-18 14:18 | NUR ---
chart review. jeffrey spoke with nickolas via phone call. he is here visiting her. re-education that letters have been in the [facility] security office here since last saturday for him to cherry picker operator. oh yes i thought it was not here yet, i will pick it up on my way out today thank you per nickolas.
--- NOTE | 2020-07-18 19:20 | NUR ---
NO CPAP TRIALING TODAY. PPN CONTINUES. PLAN FOR TPN TONIGHT. EDG AT BEDSIDE 1614. PROCEDURE DONE AT 1636. BIOPIES TAKEN. OG ADVANCED TO 72CM AT LIP PER DR GERMAN AT BEDSIDE, VERIFIED BY PICTURE. FAMILY AVALOS AT PATIENT BEDSIDE DURING THE AFTERNOON.
[2020-07-19] VITALS (54 sets, daily range): BP systolic 89–135; BP diastolic 42–79
[2020-07-19 04:13] LABS: ABSOLUTE NEUTROPHILS 13.8 thou/uL (1.4-8.2); EOSINOPHILS 0.5 % (0.0-3.0); HEMOGLOBIN 6.8 gm/dL (12.0-15.0)
[2020-07-19 04:15] LABS: BASOPHILS 0.8 % (0.0-2.0); HEMATOCRIT 21.1 % (37.0-47.0); LYMPHOCYTES 7.1 % (24.0-44.0); MCH 26.6 pg (26.0-34.0); MCHC 32.4 g/dL (28.0-37.0); MCV 82.1 fL (80.0-100.0); MONOCYTES 8.2 % (1.0-8.0); PLATELET COUNT 203 thou/uL (150-400); POLYS 83.4 % (36.0-66.0); RBC 2.57 mil/uL (4.20-5.00); RDW 19.8 % (10.5-14.5); WBC 16.5 thou/uL (4.0-11.0)
[2020-07-19 04:22] LABS: ALBUMIN 1.2 g/dL (3.4-5.0); CALCIUM 7.9 mg/dL (8.5-10.1); CREATININE 0.7 mg/dL (0.6-1.0); MAGNESIUM 1.7 mg/dL (1.8-2.4); POTASSIUM 3.6 mmol/L (3.5-5.1); TOTAL BILIRUBIN 1.1 mg/dL (0.2-1.0); TOTAL PROTEIN 5.1 g/dL (6.4-8.2)
[2020-07-19 04:57] LABS: BE(vivo) -0.4 mmol/L (-2 to +3); HCO3 23.3 mmol/L (22.0-26.0); PCO2 34.4 mmHg (35.0-45.0); PO2 63.6 mmHg (80.0-100.0); pH 7.449 (7.360-7.450); sO2 93.4 % (92.0-98.0)
[2020-07-19 16:06] LABS: HGB SOLUBILITY Positive (Negative); Hgb S 23.8 % (0.0)
--- NOTE | 2020-07-19 16:08 | P ---
[facility] [place] [address] PROCEDURE REPORT Name: ALY JUSTICE Room #: 246-P ADM IN M.R.#: [id number] Admission: 07/09/20 Attend Phys: Brijesh Lazo MD Discharge: Date of : 83 Report #: [id number] THIS REPORT FOR: cc: FAM - Family physician unknown FAM - Family physician unknown Jigar Dow MD ~ CC: Seamus FLEMING unknown Darron López DATE OF SERVICE: 07/18/2020 PROCEDURE PERFORMED: Upper endoscopy with biopsies. HISTORY OF PRESENT ILLNESS: The patient is a 35-year-old female who has had nausea, vomiting, possible aspiration pneumonia. Also, was COVID positive, as well as influenza positive. She has had a significant medical course including intubation. She remains intubated in the ICU and sedated at this time. Also, was diagnosed with bilateral pulmonary embolus. She has undergone upper endoscopy by my partner, concerned for possible malignancy at the gastric antrum. Biopsies were obtained; however, showed only moderate chronic gastritis, negative for malignancy, negative for H. pylori. CT scan of the abdomen and pelvis was performed on 07/16 showing mass-like wall thickening in the region of the gastric antrum or pylorus concerning for primary gastric malignancy. Plan is for repeat upper endoscopy with repeat biopsies today. DESCRIPTION OF PROCEDURE: The risks and benefits of the procedure were explained to the patient's boyfriend, those risks including but not limited to bleeding, perforation, and the risk of sedation. He understood these risks and gave informed consent. The procedure was performed in the ICU at the bedside. The patient is already sedated on propofol, as well as on a ventilator at this time. Next, using a standard Olympus upper endoscope, the scope was placed in the patient's mouth and advanced under direct vision through the esophagus, stomach and into the second portion of the duodenum. The esophagus was normal throughout. The GE junction was normal. Upon entering the stomach, a large amount of liquid fluid and bile was noted throughout the stomach. A total of at least 1000 mL was aspirated away. There was a diffuse gastritis noted in the fundus and the body. Biopsies were obtained to rule out H. pylori. In the gastric antrum, there was an obvious abnormality with a possible adenomatous type of tissue near the pylorus opening, which caused a significant narrowing of the pylorus. Several biopsies were obtained on the gastric side. I then was able to advance the scope through the pylorus, which was abnormal and significantly narrowed. There was evidence of some ulceration, as well as some [address] [address] PROCEDURE REPORT Name: ALY JUSTICE Room #: [facility] IN M.R.#: [id number] Admission: 07/09/20 Attend Phys: Brijesh Lazo MD Discharge: Date of : 83 Report #: [id number] fleshy type adenomatous tissue within the pyloric channel as well. Biopsies were obtained in the channel ulcer today. I was able to pass the scope into the first and second portion of the duodenum, which was normal. At this point, the scope was then withdrawn and brought back up into the patient's stomach. The OG tube was advanced through the esophagus into the stomach under direct vision through the endoscope. The OG tip was noted to be in good position in the gastric antrum. At this point, the scope was then withdrawn and the procedure terminated. The patient tolerated the procedure well. IMPRESSION: 1. Diffuse gastritis. 2. Abnormality of the gastric antrum with possible adenomatous change and significant narrowing of the gastric pylorus and antrum. Biopsies obtained. 3. Abnormal pyloric channel with significant narrowing and some ulceration. Biopsies obtained. RECOMMENDATIONS: 1. Await biopsy results. 2. Continue PPI therapy. 3. Continue OG suction to low intermittent suction. Agree with TPN, which is being started in the near future. Even if biopsies are negative for malignancy, may need to consider surgical options such as a gastrojejunostomy, as the patient is essentially having a gastric outlet obstruction due to the abnormalities noted in the antrum and pyloric channel. Thank you for allowing me to participate in her care. <ELECTRONICALLY SIGNED> By: Jigar Dow MD 07/19/20 1608 1654 09 Jigar Dow MD /nt
[2020-07-19 17:25] LABS: URINE BILIRUBIN 2+ (Negative); URINE BLOOD TRACE (Negative); URINE CLARITY CLOUDY; URINE COLOR YELLOW; URINE GLUCOSE-RANDOM* NEGATIVE (Negative); URINE KETONES NEGATIVE (Negative); URINE LEUKOCYTES-REFLEX NEGATIVE (Negative); URINE NITRITE-REFLEX NEGATIVE (Negative); URINE PROTEIN (DIPSTICK) 2+ (Negative); URINE SPECIFIC GRAVITY 1.025 (1.005-1.035)
[2020-07-19 17:33] LABS: SQUAMOUS 0-3 Few /LPF (0-3); URINE RBC 0-2 Rare /HPF (0-2); URINE WBC-REFLEX 0-5 Rare /HPF (0-5)
[2020-07-19 17:34] LABS: BACTERIA-REFLEX 1-9 Few /HPF (None Seen); CASTS None Seen /LPF (None Seen); CRYSTALS None Seen /LPF (None Seen); YEAST-REFLEX Present (None Seen)
--- NOTE | 2020-07-19 18:41 | NUR ---
TMAX 103.5. ORAL TYLENOL AND RECTAL TYLENOL GIVEN WITH NO IMPROVEMENT. ORDER OBTAINED FOR IV TYLENOL AND ONE DOSE GIVEN. TEMP NOW 101.4. FIRST OF TWO UNITS OF PRBC GIVEN WITH PERMISSION FROM DESPITE ELEVATED TEMPERATURE. TOLERATED WELL. 600 ML OF GREEN BILE OUT OF OGT. BROWN CULTURES SENT TODAY. FIO2 INCREASED TO .45
[2020-07-20] VITALS (54 sets, daily range): BP systolic 82–138; BP diastolic 42–86
[2020-07-20 06:05] LABS: ALBUMIN 1.4 g/dL (3.4-5.0); CALCIUM 8.2 mg/dL (8.5-10.1); CREATININE 0.6 mg/dL (0.6-1.0); MAGNESIUM 2.2 mg/dL (1.8-2.4); PHOSPHORUS 2.7 mg/dL (2.5-4.9); POTASSIUM 3.3 mmol/L (3.5-5.1); TOTAL PROTEIN 5.4 g/dL (6.4-8.2)
[2020-07-20 07:36] LABS: BE(vivo) -2.9 mmol/L (-2 to +3); HCO3 20.9 mmol/L (22.0-26.0); PCO2 32.7 mmHg (35.0-45.0); PO2 56.3 mmHg (80.0-100.0); pH 7.423 (7.360-7.450); sO2 90.3 % (92.0-98.0)
[2020-07-20 08:06] LABS: HEMATOCRIT 28.3 % (37.0-47.0); MCH 26.7 pg (26.0-34.0); MCV 83.4 fL (80.0-100.0); RBC 3.39 mil/uL (4.20-5.00); RDW 19.6 % (10.5-14.5); WBC 15.3 thou/uL (4.0-11.0)
--- NOTE | 2020-07-20 18:10 | NUR ---
ASSUMED CARE AT 0700. TEMP MAX OF 101.1. ADEQUATE UOP. NO BM. FIO2 INCREASED TO 60%. BLOOD TINGED SECRETIONS WITH SOME CLOTS THROUGHOUT THE DAY. OG TUBE HAD 450 ML OUTPUT. PRECEDEX, PROPOFOLL GTTS FOR SEDATION AND VENT MANAGEMENT. LEVOPHED RESTARTED THIS MORNING DUE TO HYPOTENSION. POTASSIUM REPLACED PER [facility] PROTOCOL. TPN INFUSING. SEDATION VACATION PERFORMED - PATIENT WAS ABLE TO PARTIALLY OPEN EYES ON COMMAND AND SHE BECAME TACHYPNEIC/TACHYCARDIC AND INCREASED PIP. GROIN DRESSING CDI. PATIENT'S EDEMA SLOWLY BECOMING MORE PROMINENT. PATIENT'S SIGNIFICANT OTHER VISITED AND WAS UPDATED AND EDUCATED ON THE PATIENT'S CONDITION AND PLAN OF CARE. SIGNIFICANT OTHER WAS GIVEN PATIENT'S RING. PATIENT SLOWLY PROGRESSING TOWARDS THE PLAN OF CARE.
--- NOTE | 2020-07-20 18:40 | NUR ---
TEMPERATURE RECHECKED AT 1835 - 102.0. DR. RIBEIRO IS AWARE. NO NEW ORDERS GIVEN.
[2020-07-21] VITALS (71 sets, daily range): BP systolic 88–141; BP diastolic 46–87
[2020-07-21 03:22] LABS: BE(vivo) -3.2 mmol/L (-2 to +3); HCO3 21.8 mmol/L (22.0-26.0); PCO2 38.8 mmHg (35.0-45.0); PO2 63.5 mmHg (80.0-100.0); pH 7.368 (7.360-7.450); sO2 91.8 % (92.0-98.0)
--- NOTE | 2020-07-21 04:50 | NUR ---
SPOKE WITH DR MALCOLM VIA PHONE REGARDING PATIENT'S STATUS. PATIENT HAS FREQUENT DE-SAT MOMENTS DROPPING TO 68% AND REQUIRING INCREASED FIO2 ( FROM 60% TO 100%). PATIENT TACHYCARDIC AND TACHYPNIC. LARGE AMOUNT OF ORAL SECRETIONS AND INLINE SUCTION BLOODY/BOATENG SECRETIONS. ADEQUATE URINE OUTPUT. PATIENT HAS FREQUENT COUGHING SPELLS. PATIENT REQUIRING INCREASE IN SEDATION; MAXED ON PROPOFOL, FENTANYL, AND PRECEDEX GTTS. BLOOD PRESSURE MAINTAINED WITH LEVO GTT. DISCUSSED ABG RESULTS WITH DR MALCOLM. ORDER TO INCREASE PEEP FROM 5 TO 10. NOTIFIED DISTILLERY MANAGER OF THIS ORDER.
[2020-07-21 05:45] LABS: HEMATOCRIT 28.8 % (37.0-47.0); HEMOGLOBIN 9.3 gm/dL (12.0-15.0); MCH 26.8 pg (26.0-34.0); MCHC 32.4 g/dL (28.0-37.0); MCV 82.9 fL (80.0-100.0); RBC 3.47 mil/uL (4.20-5.00); RDW 19.4 % (10.5-14.5); WBC 13.8 thou/uL (4.0-11.0)
[2020-07-21 05:47] LABS: ALBUMIN 1.1 g/dL (3.4-5.0); CALCIUM 8.1 mg/dL (8.5-10.1); CREATININE 0.7 mg/dL (0.6-1.0); MAGNESIUM 2.2 mg/dL (1.8-2.4); PHOSPHORUS 2.8 mg/dL (2.5-4.9); POTASSIUM 3.5 mmol/L (3.5-5.1); TOTAL BILIRUBIN 3.6 mg/dL (0.2-1.0); TOTAL PROTEIN 5.2 g/dL (6.4-8.2)
--- NOTE | 2020-07-21 07:30 | NUR ---
Assummed care from Theresa FERREIRA, the night nurse. Patient is sedated and not coughing at the present time. OG to LIS lt green to bile colored drainage. Levo at 4mcg to keep MAP greater than 65 MMHG.
--- NOTE | 2020-07-21 09:01 | NUR ---
BEDSIDE BRONCH WITH LEVAGE BY DR MALCOLM IN PROGRESS.
--- NOTE | 2020-07-21 13:15 | NUR ---
Patient is resting quielty on vent. FiO2 98 to 100% with resp rate in the mid 20's. Monitor showing NSR. Patient continues to have greater than 250 ml of urine output per hour. Potassium protocol follow for serum potassium of 3.5.
[2020-07-21 15:06] LABS: BE(vivo) 0.2 mmol/L (-2 to +3); HCO3 24.7 mmol/L (22.0-26.0); PCO2 39.4 mmHg (35.0-45.0); PO2 167.3 mmHg (80.0-100.0); pH 7.415 (7.360-7.450); sO2 99.2 % (92.0-98.0)
--- NOTE | 2020-07-21 16:30 | NUR ---
Dr. Dow in to speak with the patient's boyfriend concerning gastric biposy results.
--- NOTE | 2020-07-21 19:03 | NUR ---
PATIENT REMAINS STABLE, INTUBATED AND SEDATED. LEVOPHED WEANED OFF AND SEDATION WEANED DOWN. O2 SAT IN THE MID 90'S AFTER FI02 DECREASED TO 60%, SEDATION VACATION HELD TODAY PEEP IS 10 CM. OG AND YUEN PATENT. AFEBRILE TODAY.
[2020-07-22] VITALS (95 sets, daily range): BP systolic 94–142; BP diastolic 57–87
[2020-07-22 03:36] LABS: BE(vivo) -1.2 mmol/L (-2 to +3); HCO3 24.4 mmol/L (22.0-26.0); PCO2 45.4 mmHg (35.0-45.0); PO2 85.8 mmHg (80.0-100.0); pH 7.349 (7.360-7.450)
[2020-07-22 05:48] LABS: ABSOLUTE NEUTROPHILS 11.4 thou/uL (1.4-8.2); BASOPHILS 0.3 % (0.0-2.0); EOSINOPHILS 0.1 % (0.0-3.0); HEMATOCRIT 26.4 % (37.0-47.0); HEMOGLOBIN 8.7 gm/dL (12.0-15.0); LYMPHOCYTES 8.9 % (24.0-44.0); MCHC 32.9 g/dL (28.0-37.0); MCV 81.9 fL (80.0-100.0); MONOCYTES 4.6 % (1.0-8.0); PLATELET COUNT 229 thou/uL (150-400); POLYS 86.1 % (36.0-66.0); RBC 3.22 mil/uL (4.20-5.00); RDW 20.2 % (10.5-14.5); WBC 13.2 thou/uL (4.0-11.0)
[2020-07-22 06:09] LABS: MAGNESIUM 2.3 mg/dL (1.8-2.4); PHOSPHORUS 3.8 mg/dL (2.5-4.9)
[2020-07-22 06:30] LABS: ALBUMIN 1.5 g/dL (3.4-5.0); CALCIUM 8.4 mg/dL (8.5-10.1); CREATININE 0.7 mg/dL (0.6-1.0); POTASSIUM 4.1 mmol/L (3.5-5.1); TOTAL BILIRUBIN 2.8 mg/dL (0.2-1.0); TOTAL PROTEIN 5.5 g/dL (6.4-8.2)
--- NOTE | 2020-07-22 07:49 | NUR ---
VSS. SR ON MONITOR. NO SEDATION VACATION THIS SHIFT DUE TO PEEP OF 10. ADEQUATE URINE OUTPUT. PATIENT NOT PROGRESSING TOWARDS GOAL.
--- NOTE | 2020-07-22 11:35 | NUR ---
ASSUMED CARE OF PT AT 0645. NO PLAN TO CPAP TODAY. GASTRIC MASS (+) CA. WAITING FOR SURGERY AND HEM/ONC TO MAKE PLAN. SIG OTHER, ROBBIE, AT BEDSIDE. TOOK PT'S BELONGINGS HOME INCLUDING PHONE AND PURSE.
--- NOTE | 2020-07-22 12:09 | NUR ---
chart review. she remains on vent. alter feeding for nutritional support. unable to visit with her. sister and mom have not made it from [place], they still working on trying to get over here to be with tania and 4 year old granddaughter. nickolas cont to visit tania. no anticipated dc over the weekend. will cont following as needed for dc needs.
[2020-07-23] VITALS (44 sets, daily range): BP systolic 120–153; BP diastolic 72–96
--- NOTE | 2020-07-23 04:01 | NUR ---
PT SEDATED. NONPURPOSEFUL EYE MOVEMENT DURING REPOSITIONING. VSS, AFEBRILE. STRONG COUGH, BOATENG COLORED SECRETIONS SUCTIONED. BED BATH GIVEN
[2020-07-23 04:04] LABS: HEMATOCRIT 25.4 % (37.0-47.0); HEMOGLOBIN 8.2 gm/dL (12.0-15.0); MCH 26.4 pg (26.0-34.0); MCV 82.5 fL (80.0-100.0); RBC 3.09 mil/uL (4.20-5.00); RDW 20.2 % (10.5-14.5)
[2020-07-23 04:27] LABS: CALCIUM 8.7 mg/dL (8.5-10.1); CREATININE 0.8 mg/dL (0.6-1.0); MAGNESIUM 2.6 mg/dL (1.8-2.4); PHOSPHORUS 3.4 mg/dL (2.5-4.9); POTASSIUM 3.9 mmol/L (3.5-5.1)
[2020-07-23 08:59] LABS: BE(vivo) 0.7 mmol/L (-2 to +3); HCO3 27.2 mmol/L (22.0-26.0); pH 7.328 (7.360-7.450)
--- NOTE | 2020-07-23 18:54 | NUR ---
BLOOD SUGARS HAVE SIGNIFICANTLY IMPROVED. PT EDUCATED ON CARES WITH DIABETES. SHE WILL BE TRANSFERED TO [facility]. ALERT ORIENTED X4. PLEASANT WITH CARE.
[2020-07-24] VITALS (41 sets, daily range): BP systolic 123–169; BP diastolic 79–99
[2020-07-24 05:20] LABS: CALCIUM 8.2 mg/dL (8.5-10.1); CREATININE 0.8 mg/dL (0.6-1.0); POTASSIUM 3.6 mmol/L (3.5-5.1)
[2020-07-24 05:25] LABS: HEMATOCRIT 28.2 % (37.0-47.0); HEMOGLOBIN 9.1 gm/dL (12.0-15.0); MCH 26.7 pg (26.0-34.0); MCHC 32.2 g/dL (28.0-37.0); MCV 83.2 fL (80.0-100.0); RBC 3.39 mil/uL (4.20-5.00); RDW 20.5 % (10.5-14.5)
--- NOTE | 2020-07-24 06:37 | NUR ---
Pt with AC vent mode, 500 volume, fio2 65%, peep 10, rate 14, needed frequent suctioning at start of shift, coughs when repositioned, restraints intact, right groin dressing cdi, poon with lrg amt of output after 40 iv lasix, weight down approx 5#, extremities elevated, vss, still low grade temps, labs drawn and sent to lab, will con't to monitor per ppoc.
--- NOTE | 2020-07-24 19:30 | NUR ---
unable to tolerate cpap trial. continous iv sedation. pt able to tolerate rotation with rotation increased throughout shift. initially when on r side, pt had brown/old blood tinged secretions. as rotation increased & pt more on her right side, obtained copious amount brown secretion. initially obtained large amount secretions when positioned on left side. SR, bile drainage 200cc, TPN for nutrition. adequate urine per poon. significant other present, updated on pt status. questions answered to satisfaction. when Dr. Dunham present at 1600, peep decreased to 8. pt 02 saturation deteriorated then remained 88%. Dr. Dunham updated per phone call, received order to increase peep- 10-12, rathering than increasing the fi02.
[2020-07-25] VITALS (48 sets, daily range): BP systolic 111–163; BP diastolic 68–103
--- NOTE | 2020-07-25 01:41 | NUR ---
ASSUMED PT CARE AT 1900. VSS. AFEBRILE. SEDATION VACATION FROM PROPOFOL AT 50MCG, FENTANYL AT 100MCG, AND PRECEDEX AT 1.4MCG FOR 20 MINUTES; PT FACIAL GRIMACES TO PAIN, DOESNT FOLLOW COMMANDS, MOVES EXTREMITIES NON PURPOSEFULLY, HAS POSITIVE COUGH AND GAG WITH PUPILS NORM. SEDATION RESTARTED WITH FENTANYL TITRATED DOWN TO 80MCG. PT IS TOLERATING VENT MANAGEMENT WELL. PT IS STABLE, AVERAGE OF 75MLS/HR.
[2020-07-25 05:47] LABS: HEMATOCRIT 29.2 % (37.0-47.0); HEMOGLOBIN 9.4 gm/dL (12.0-15.0); MCH 26.6 pg (26.0-34.0); MCHC 32.2 g/dL (28.0-37.0); MCV 82.9 fL (80.0-100.0); RBC 3.52 mil/uL (4.20-5.00); RDW 20.8 % (10.5-14.5); WBC 19.1 thou/uL (4.0-11.0)
[2020-07-25 05:57] LABS: ALBUMIN 2.5 g/dL (3.4-5.0); CALCIUM 8.5 mg/dL (8.5-10.1); CREATININE 0.6 mg/dL (0.6-1.0); PHOSPHORUS 3.2 mg/dL (2.5-4.9); POTASSIUM 4.2 mmol/L (3.5-5.1); TOTAL PROTEIN 5.2 g/dL (6.4-8.2)
--- NOTE | 2020-07-25 11:29 | NUR ---
>>>0700 bEDSIDE SHIFT REPORT RECEIVED, CARE ASSUMED >>>0830 ASSESSMENTS DONE DOCUMENTED. NO SEDATION VACATION DONE. PT ON VENT SETTINGS AC 14, TV 500, FIO2 80% PEEP 10, THUS NOT ABLE TO TOLERATE. ROBBIE- SIGNIFICANT OTHER CALLED, UPDATED ON PT'S CONDITION. ALL QUESTIONS ANSWERED WITH REGARDS TO VENT SETTINGS AND SEDATION MEDICATION. >>>DR KEE ROUNDING ON PT. SEE NEW ORDERS.
[2020-07-25 12:29] LABS: HEMATOCRIT 28.1 % (37.0-47.0); HEMOGLOBIN 8.8 gm/dL (12.0-15.0); MCHC 31.3 g/dL (28.0-37.0); MCV 83.1 fL (80.0-100.0); RBC 3.38 mil/uL (4.20-5.00); RDW 20.4 % (10.5-14.5); WBC 18.6 thou/uL (4.0-11.0)
[2020-07-25 12:52] LABS: INR 1.5; PROTIME 15.5 Seconds (9.3-11.4)
[2020-07-26] VITALS (40 sets, daily range): BP systolic 111–167; BP diastolic 74–99
[2020-07-26 06:19] LABS: HEMATOCRIT 30.7 % (37.0-47.0); HEMOGLOBIN 9.3 gm/dL (12.0-15.0); MCH 25.7 pg (26.0-34.0); MCHC 30.4 g/dL (28.0-37.0); MCV 84.5 fL (80.0-100.0); RBC 3.64 mil/uL (4.20-5.00); RDW 20.9 % (10.5-14.5)
[2020-07-26 06:35] LABS: CALCIUM 8.4 mg/dL (8.5-10.1); CREATININE 0.5 mg/dL (0.6-1.0); MAGNESIUM 2.5 mg/dL (1.8-2.4); PHOSPHORUS 3.8 mg/dL (2.5-4.9); POTASSIUM 4.7 mmol/L (3.5-5.1)
--- NOTE | 2020-07-26 08:00 | NUR ---
VSS. RESTRAINTS REMOVED AT 2100. PT DOES NOT MAKE ANY ATTEMPT TO MOVE TOWARDS LINES. PT CONTINUES WITH SEDATION ON PROPOFOL, FENTANYL, PRECEDEX GTTS. SR ON MONITOR. PT NOT PROGRESSING TOWARDS PLAN OF CARE. PT HAD 1150 CC URINE OUT OVERNIGHT.
--- NOTE | 2020-07-26 18:45 | NUR ---
SPOKE WITH DR. 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 UPDATED ROBBIE WHEN HE INQUIRED REGARDING STATUS- SHE REMAINS UNCHANGED WITH HER FIO2-80, PEEP-12, ALL SEDATION MEDICATIONS UNCHANGED. UNFORTUNATELY, NO PROGRESS TODAY.
[2020-07-27] VITALS (22 sets, daily range): BP systolic 90–162; BP diastolic 57–91
--- NOTE | 2020-07-27 04:30 | NUR ---
ASSESSMENTS COMPLETED. VSS, AFEBRILE AND SEDATED.BED BATH GIVEN, PT REPOSITIONED AND FiO2 CHANGED TO 70%. NOTED LABORED BREATHING WHEN PATIENT TURNED TO RIGHT SIDE. NOW BACK TO LEFT SIDE AND APPEARS COMFORTABLE. URINE OUTPUT ADEQUATE. OG TO LIS, MINIMAL GREEN GASTRIC OUTPUT NOTED.
[2020-07-27 05:30] LABS: RBC 3.42 mil/uL (4.20-5.00)
[2020-07-27 05:32] LABS: HEMATOCRIT 29.3 % (37.0-47.0); HEMOGLOBIN 9.1 gm/dL (12.0-15.0); MCH 26.6 pg (26.0-34.0); MCV 85.7 fL (80.0-100.0); PLATELET COUNT 427 thou/uL (150-400); RDW 21.4 % (10.5-14.5); WBC 17.9 thou/uL (4.0-11.0)
[2020-07-27 05:42] LABS: CALCIUM 8.2 mg/dL (8.5-10.1); CREATININE 0.6 mg/dL (0.6-1.0); POTASSIUM 5.2 mmol/L (3.5-5.1)
[2020-07-27 10:15] LABS: BE(vivo) 4.7 mmol/L (-2 to +3); HCO3 34.2 mmol/L (22.0-26.0); PO2 79.2 mmHg (80.0-100.0); sO2 92.5 % (92.0-98.0)
[2020-07-27 10:16] LABS: pH 7.223 (7.360-7.450)
[2020-07-27 10:23] LABS: ABSOLUTE NEUTROPHILS 15.6 thou/uL (1.4-8.2); ANISOCYTOSIS 1+; METAMYELOCYTES 3 %; NUCLEATED RBCS 1 /100WBC; PLATELET ESTIMATE NORMAL
[2020-07-27 10:24] LABS: POLYCHROMASIA SLIGHT
[2020-07-27 13:42] LABS: BE(vivo) 3.1 mmol/L (-2 to +3); HCO3 32.1 mmol/L (22.0-26.0); PO2 73.1 mmHg (80.0-100.0); sO2 91.2 % (92.0-98.0)
[2020-07-27 13:43] LABS: PCO2 77.4 mmHg (35.0-45.0); pH 7.236 (7.360-7.450)
--- NOTE | 2020-07-27 16:30 | NUR ---
bedside nurse called stated sig other is here and wanting for paper work for dr to fill out and get back to her work, hospitalist saying cant fill out paper work. asked bedside nurse to see if pulmonary , oncology or ID to see if they can complete some of paperwork. will cont following as needed for dc needs.
[2020-07-27 17:48] LABS: HEMATOCRIT 30.1 % (37.0-47.0); HEMOGLOBIN 9.2 gm/dL (12.0-15.0); MCH 26.3 pg (26.0-34.0); MCHC 30.4 g/dL (28.0-37.0); MCV 86.4 fL (80.0-100.0); RBC 3.48 mil/uL (4.20-5.00); RDW 21.7 % (10.5-14.5); WBC 17.5 thou/uL (4.0-11.0)
--- NOTE | 2020-07-27 20:00 | NUR ---
PT INTUBATED AND SEDATED. UNABLE TO DO SEDATION VACATION DUE TO VENTILATOR SETTINGS. NO CPAP TRIAL. INSULIN GTT INIATED, ENDOCRINE CONSULTED. HEPARIN GTT UNCHANGED PER [facility] POLICY/PROTOCAL. LEVOPHED GTT INIATED FOR BP SUPPORT. AFEBRILE, ADEQUATE UOP, NO BM. NOT PROGRESSING TOWARDS POC. SIGNIFICANT OTHER AT BEDSIDE, HE WAS UPDATED AND EDUCATED ON PT CONDITION AND POC, WAS PATIENT.
[2020-07-27 20:39] LABS: BE(vivo) 6.3 mmol/L (-2 to +3); PO2 84.3 mmHg (80.0-100.0); sO2 94.6 % (92.0-98.0)
[2020-07-27 20:41] LABS: pH 7.278 (7.360-7.450)
[2020-07-27 20:42] LABS: PCO2 76.5 mmHg (35.0-45.0)
[2020-07-28] VITALS (47 sets, daily range): BP systolic 115–174; BP diastolic 70–144
--- NOTE | 2020-07-28 00:16 | NUR ---
PATIENT NOTED OVERBREATHING THE VENT WITH Ppeak>35, NOTIFIED BY . VENT SETTINGS CHANGED TO PCV-30, RATE 20. PT SEDATED AND APPEARS TO BE MORE COMFORTABLE AFTER CHANGES.ABGs IMPROVED.TEMP 99.4 AX
[2020-07-28 05:08] LABS: BE(vivo) 1.6 mmol/L (-2 to +3); HCO3 28.2 mmol/L (22.0-26.0); PCO2 54.6 mmHg (35.0-45.0); PO2 88.4 mmHg (80.0-100.0); pH 7.331 (7.360-7.450)
[2020-07-28 05:41] LABS: HEMATOCRIT 29.2 % (37.0-47.0); MCH 26.6 pg (26.0-34.0); MCHC 30.9 g/dL (28.0-37.0); RBC 3.4 mil/uL (4.20-5.00); RDW 21.8 % (10.5-14.5)
[2020-07-28 05:51] LABS: CALCIUM 8.4 mg/dL (8.5-10.1); CREATININE 0.6 mg/dL (0.6-1.0); POTASSIUM 4.7 mmol/L (3.5-5.1)
--- NOTE | 2020-07-28 09:40 | NUR ---
cm went to see if other md started the [facility] paper work for her. oncology stated to see if dr simental can complete. will cont following as needed for dc needs. her mom and sister from [place] have not arrived yet per sig other nickolas.
[2020-07-28 10:42] LABS: MAGNESIUM 1.9 mg/dL (1.8-2.4); PHOSPHORUS 2.4 mg/dL (2.5-4.9)
--- NOTE | 2020-07-28 18:45 | NUR ---
PATIENT CONTINUES ON PRESSURE CONTROL SETTINGS ON VENTILATOR. PEEP DECREASES TO 8. 50% FIO2. REMAINS OFF LEVOPHED. INSULIN GTT TITRATING PER PROTOCOL. HEPARIN GTT. ADEQUATE URINE OUTPUT. TPN CONTINUES.
[2020-07-29] VITALS (44 sets, daily range): BP systolic 132–174; BP diastolic 81–98
--- NOTE | 2020-07-29 03:37 | NUR ---
CALLED TAHIR PRADO ON PT'S BP BEING IN THE 160s 170s. NEW ORDER RECEIVED AND IMPLEMENTED.
[2020-07-29 04:21] LABS: BE(vivo) 9.4 mmol/L (-2 to +3); HCO3 33.5 mmol/L (22.0-26.0); PCO2 43.5 mmHg (35.0-45.0); PO2 63.3 mmHg (80.0-100.0); pH 7.504 (7.360-7.450); sO2 93.9 % (92.0-98.0)
[2020-07-29 05:39] LABS: HEMATOCRIT 33.6 % (37.0-47.0); HEMOGLOBIN 10.6 gm/dL (12.0-15.0); MCH 26.3 pg (26.0-34.0); MCHC 31.5 g/dL (28.0-37.0); MCV 83.6 fL (80.0-100.0); RBC 4.02 mil/uL (4.20-5.00); RDW 21.9 % (10.5-14.5); WBC 21.5 thou/uL (4.0-11.0)
[2020-07-29 05:44] LABS: CALCIUM 8.2 mg/dL (8.5-10.1); CREATININE 0.5 mg/dL (0.6-1.0); MAGNESIUM 1.8 mg/dL (1.8-2.4); PHOSPHORUS 2.8 mg/dL (2.5-4.9); TOTAL BILIRUBIN 1.1 mg/dL (0.2-1.0); TOTAL PROTEIN 5.1 g/dL (6.4-8.2)
[2020-07-29 06:00] LABS: POTASSIUM 2.9 mmol/L (3.5-5.1)
--- NOTE | 2020-07-29 06:42 | NUR ---
ASSUMED PT CARE AT 1900. BP ELEVATED IN THE 160s-170s. PT ON PEEP OF 8 AND FIO2 PF 50% WITH SATS OF 93% MEDICAL FILE CLERK EVE NOTIFIED OF TRENING BP AND NEW ODEREDS RECEIVED AND IMPLEMENTED. PT HAD 3225ML U/O OUT THIS SHIFT, K WAS 2.9 THIS AM AND IS BEING REPLACED, PT IS STABLE, EYES TAPED SHUT WITH GAUZE PT TENDS TO OPEN HER EYES, FREQUENT INLINE SUCTIONING NEEDED PT TENDS TO COUGH WHICH THEN LEADS TO HER DESATURATING. RT INCREASED PEEP TO 10 @ 0120AM PT IS OTHERWISE STABLE, WILL CONTINUE TO MONITOR.
--- NOTE | 2020-07-29 08:30 | NUR ---
[employer] paper work for tania completed, signed by hospitalist, placed on front of chart for sig other nickolas to cherry picker operator and take back to her work. she remains on vent, tf for nutritional support. will cont following as needed for dc needs.
[2020-07-30] VITALS (24 sets, daily range): BP systolic 123–159; BP diastolic 75–97
[2020-07-30 04:57] LABS: ALBUMIN 1.8 g/dL (3.4-5.0); CALCIUM 8.2 mg/dL (8.5-10.1); CREATININE 0.4 mg/dL (0.6-1.0); MAGNESIUM 1.7 mg/dL (1.8-2.4); PHOSPHORUS 3.5 mg/dL (2.5-4.9); POTASSIUM 3.1 mmol/L (3.5-5.1); TOTAL PROTEIN 4.6 g/dL (6.4-8.2)
[2020-07-30 05:12] LABS: HEMATOCRIT 34.1 % (37.0-47.0); HEMOGLOBIN 10.7 gm/dL (12.0-15.0); MCH 26.6 pg (26.0-34.0); MCHC 31.5 g/dL (28.0-37.0); MCV 84.3 fL (80.0-100.0); PLATELET COUNT 523 thou/uL (150-400); RBC 4.04 mil/uL (4.20-5.00); RDW 22.2 % (10.5-14.5); WBC 23.2 thou/uL (4.0-11.0)
[2020-07-30 06:21] LABS: ABSOLUTE NEUTROPHILS 19.7 thou/uL (1.4-8.2); ANISOCYTOSIS 2+; METAMYELOCYTES 3 %; NUCLEATED RBCS 2 /100WBC; PLATELET ESTIMATE NORMAL
[2020-07-30 06:22] LABS: MICROCYTES 2+; POLYCHROMASIA 1+
--- NOTE | 2020-07-30 09:17 | NUR ---
BOYFRIEND CALLING THIS MORNING AROUIND 0915, RN UPDATING HIM AND DISUCSSING POC WITH HIM. HE EXPRESSED UNDERSTANDING.
[2020-07-30 11:32] LABS: POTASSIUM 3.7 mmol/L (3.5-5.1)
--- NOTE | 2020-07-30 22:48 | NUR ---
unable to chart via heparin flow sheet. 1904 ptt 50.6 within range for protocol. no changes made to gtt, will recheck in 6 hours at 0100
[2020-07-31] VITALS (26 sets, daily range): BP systolic 121–174; BP diastolic 73–102
--- NOTE | 2020-07-31 02:21 | NUR ---
0101 PTT AT 45, PROTOCOL FOLLOWED AND 2547 UNITS GIVEN BOLUS AND GTT INCREASED BY 2 UNITS/KG/HR FOR FINAL DOSING OF 11.6 UNITS/KG/HR
--- NOTE | 2020-07-31 02:46 | NUR ---
PT TOLERATING VENT WELL ON SEDATIONS, 40% FI02, SATS >95%. TOLERATING TURNS AND ORAL CARE WELL. TITRATING GTTS PER PROTOCOL. SPOKE WITH JANN AND GAVE UPDATE, ALL QUESTIONS ANSWERED
[2020-07-31 04:34] LABS: HEMATOCRIT 32.5 % (37.0-47.0); HEMOGLOBIN 10.3 gm/dL (12.0-15.0); MCH 26.7 pg (26.0-34.0); MCHC 31.7 g/dL (28.0-37.0); PLATELET COUNT 474 thou/uL (150-400); RBC 3.87 mil/uL (4.20-5.00); RDW 23.3 % (10.5-14.5); WBC 22.9 thou/uL (4.0-11.0)
[2020-07-31 05:00] LABS: ALBUMIN 1.8 g/dL (3.4-5.0); CALCIUM 8.1 mg/dL (8.5-10.1); CREATININE 0.5 mg/dL (0.6-1.0); MAGNESIUM 1.9 mg/dL (1.8-2.4); PHOSPHORUS 3.6 mg/dL (2.5-4.9); POTASSIUM 3.5 mmol/L (3.5-5.1); TOTAL BILIRUBIN 0.7 mg/dL (0.2-1.0); TOTAL PROTEIN 4.5 g/dL (6.4-8.2)
[2020-07-31 05:20] LABS: ABSOLUTE NEUTROPHILS 21.3 thou/uL (1.4-8.2); ANISOCYTOSIS 3+; LARGE PLATELETS FEW; NUCLEATED RBCS 1 /100WBC; POLYCHROMASIA 3+
[2020-07-31 05:21] LABS: SCHISTOCYTES OCCASIONAL
--- NOTE | 2020-07-31 18:11 | NUR ---
ASSESSMENTS AND INTERVENTIONS DOCCUMENTED. PATIENT REMIANS INTUBATED WITH MODERATE SEDATION. DR. ZAMORA ROUNDING ON PATIENT THIS SHIFT, ORDERS TO DC INSULIN AND D5W AND VASOTECH RECIEVED. DR. KEE ROUNDING, NO NEW ORDERS. BOYFRIEND UP TO VISIT PATIENT THIS SHIFT. HE WAS UPDATED AND EDUCATED ON PARAMETERS FOR WEANING CRITERIA. PATIENT HEPARIN GTT DROPPED 2 UNITS. PATIENT THERAPUTIC AT THIS TIME. NO NEW CHANGES.
[2020-08-01] VITALS (21 sets, daily range): BP systolic 131–165; BP diastolic 76–103
--- NOTE | 2020-08-01 04:55 | NUR ---
Assumed pt care at 1900. Pt is sedated but follows command. No sign of distress noted in pt. Medication administered. Assessment completed and documented. Scheduled meds administered to pt. No sign of distress noted in pt. No acute events overnight. No further needs at this time
[2020-08-01 06:07] LABS: HEMATOCRIT 29.6 % (37.0-47.0); HEMOGLOBIN 9.4 gm/dL (12.0-15.0); MCH 26.7 pg (26.0-34.0); MCHC 31.8 g/dL (28.0-37.0); MCV 84.1 fL (80.0-100.0); PLATELET COUNT 479 thou/uL (150-400); RBC 3.52 mil/uL (4.20-5.00); RDW 23.8 % (10.5-14.5); WBC 18.7 thou/uL (4.0-11.0)
[2020-08-01 06:42] LABS: ANION GAP 4 mmol/L (7-16); BUN 22 mg/dL (7-18); CHLORIDE 103 mmol/L (98-107); CHOLESTEROL 214 mg/dL (<200); CO2 34 mmol/L (21-32); CREATININE 0.5 mg/dL (0.6-1.0); GLUCOSE 239 mg/dL (74-106); HDL CHOLESTEROL 30 mg/dL (>40); LDL CHOLESTEROL 142 mg/dL (<100); PHOSPHORUS 3.3 mg/dL (2.5-4.9); POTASSIUM 3.9 mmol/L (3.5-5.1); SODIUM 141 mmol/L (136-145); TC:HDL 7.1 Ratio (Not establshd); TRIGLYCERIDE 214 mg/dL (<150); VLDL 43 mg/dL (<40)
[2020-08-01 06:43] LABS: SERUM ASSESSMENT Clear
[2020-08-01 07:49] LABS: ABSOLUTE NEUTROPHILS 16.5 thou/uL (1.4-8.2)
[2020-08-01 07:50] LABS: METAMYELOCYTES 1 %; MYELOCYTES 1 %
[2020-08-01 07:53] LABS: ANISOCYTOSIS 3+; MACROCYTES 1+; MICROCYTES 1+; POLYCHROMASIA SLIGHT
[2020-08-01 07:54] LABS: LARGE PLATELETS FEW; POIKILOCYTOSIS 1+
[2020-08-01 07:55] LABS: TEARDROPS OCCASIONAL
--- NOTE | 2020-08-01 09:29 | NUR ---
PT HAS VERY THICK BOATENG SECRETIONS WITH INLINE SUCTIONING. RT NOTIFIED AND HE LAVAGED HER INLINE TUBE AND CHANGED OUT PT'S HME. PT BECOMES VERY TACHYCARDIC WHEN NEEDING TO BE SUCTIONED AND ALSO WITH ANY BODY MOVEMENT.
[2020-08-01 10:27] LABS: BE(vivo) 5.8 mmol/L (-2 to +3); HCO3 29.8 mmol/L (22.0-26.0); PCO2 40.8 mmHg (35.0-45.0); PO2 78.7 mmHg (80.0-100.0); pH 7.481 (7.360-7.450); sO2 96.4 % (92.0-98.0)
--- NOTE | 2020-08-01 14:11 | NUR ---
chart review. she remains intubated. noted will need j tube and trach when ordered by MD,. will cont following as needed for dc needs.
--- NOTE | 2020-08-01 14:53 | NUR ---
RN SPOKE WITH JANN MORALES VIA TELEPHONE. UPDATE GIVEN AND QUESTIONS ANSWERED.
--- NOTE | 2020-08-01 16:59 | NUR ---
HEPARIN FLOW SHEET IN [employer] IS FULL, NO NEW LINES AVAILABLE TO CHART ON HEPARIN GTT. THIS AM'S APTT IS 53.5 WHICH IS THERAPEUTIC ACCORDING TO THE HEPARIN ORDER. NO CHANGE MADE. NEXT APTT LAB DRAW 08/02/20 AT 0400. CURRENT RATE 10U/KG/HR.
[2020-08-02] VITALS (36 sets, daily range): BP systolic 148–179; BP diastolic 82–102
[2020-08-02 04:57] LABS: HEMATOCRIT 28.5 % (37.0-47.0); HEMOGLOBIN 9.2 gm/dL (12.0-15.0); MCH 27.2 pg (26.0-34.0); MCHC 32.3 g/dL (28.0-37.0); MCV 84.4 fL (80.0-100.0); RBC 3.38 mil/uL (4.20-5.00); RDW 25.2 % (10.5-14.5); WBC 18.2 thou/uL (4.0-11.0)
--- NOTE | 2020-08-02 06:16 | NUR ---
SR ON MONITOR; HR 60s - 90s. HYPERTENSIVE SBP 150s - 160s. PRN BP MEDS GIVEN IN ADDITION TO SCHEDULED MEDS. REMAINS ON HEPARIN GTT. APTT LEVEL 100.7 THIS AM. STOPPED HEPARIN GTT @ 0600 PER ORDER, WILL RESTART GTT AT 0700 WITH DECREASED UNITS FROM 10 TO 7. PT HAD 1550 CC URINE OUT OVERNIGHT. FIO2 REMAINS AT 40%. BLOOD GLUCOSE ELEVATED 257 AND 277 THIS SHIFT. PT PROGRESSING TOWARDS PLAN OF CARE.
--- NOTE | 2020-08-02 07:56 | HC ---
[facility] [place] [address] CONSULTATION Name: ALY JUSTICE Room #: [facility] ADM IN M.R.#: [id number] Admission: 07/09/20 Attend Phys: Brijesh Lazo MD Discharge: Date of : 83 Report #: [id number] THIS REPORT FOR: cc: LONNIE - Family physician unknown FAM - Family physician unknown Kandy Dang MD ~ DATE OF SERVICE: 08/01/2020 ENDOCRINE CONSULTATION NOTE CONSULTING PHYSICIAN: Dr. Velez. REASON FOR CONSULTATION: Uncontrolled type 2 diabetes mellitus. HISTORY OF PRESENT ILLNESS: This is a 35-year-old female whose medical background is rather complex. She initially presented to [facility]'s ER with a generalized seizure and loss of consciousness and was admitted for further care and monitoring and on arrival, the patient was unresponsive to where she was intubated for airway protection. Her background is significant for diabetes mellitus, but given her intubated and sedated state, it is not feasible to obtain a great deal of detail on the specifics of her history including her most recent regimen. During her course, the patient has remained intubated and ended up with IVC filter placement on 07/15 due to bilateral pulmonary embolism. She has been dealing with pneumonia that has been slow to recover and has required continued support with mechanical ventilation for 23 days. The patient was reportedly COVID-19 positive on admission, but is now negative. Also, she was found to have poorly differentiated invasive gastric carcinoma that was discovered as she was worked up for a seeming significant gastric outlet obstruction. Also, she has been dealing with issues of hypertension and anemia. The patient was recently started on TPN support as she could not tolerate her initial tube feed regimen. With this, she is placed on Lantus insulin 5 units daily as well as a Humalog supplemental scale with a widely fluctuating blood glucose values. REVIEW OF SYSTEMS: Cannot be obtained at this point in time due to her sedated, ventilated state. CURRENT MEDICAL ISSUES AND PAST MEDICAL HISTORY: 1. Acute hypoxemic respiratory failure. 2. Persistent pneumonia and infiltrates. A diagnosis of COVID-19 a few weeks [facility] [address] [place] [address] CONSULTATION Name: VINHALY Room #: 246-P ADM IN M.R.#: [id number] Admission: 07/09/20 Attend Phys: Brijesh Lazo MD Discharge: Date of : 83 Report #: [id number] ago. 3. 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 4. Hypertension. 5. Hypokalemia. 6. Seizure activity. 7. Anemia. 8. Ileus. 9. Thrombocytosis. 10. Transaminitis. 11. Type 2 diabetes mellitus. CURRENT MEDICATIONS: Include acetaminophen q.i.d., clonidine 0.5 mg b.i.d., clonidine patch, Diflucan 200 given as an IV infusion, Vasotec 1.25 mg q.6 hours, hydrocortisone 50 mg q.6 hours, Lantus insulin 5 units daily, morphine as needed, pantoprazole 40 mg IV daily, KCl support as needed, Humalog supplemental scale discontinued. ALLERGIES: She is allergic to ZOSYN. FAMILY HISTORY: Unknown at this point in time. SOCIAL HISTORY: Cannot be elicited at this point in time due to the patient's noncommunicative state. PHYSICAL EXAMINATION: GENERAL: -Mongolian female patient, intubated and sedated, nonverbal. VITAL SIGNS: Blood pressure is 153/92 mmHg, heart rate is 62 beats per minute, respirations 20 per minute, temperature 37.1 degrees Celsius. CONSTITUTIONAL: She is sedated, mechanically ventilated, noncommunicative. HEENT: Anicteric sclerae. NECK: Supple, no thyromegaly. CHEST: Noted for coarse breath sounds, scattered rales and rhonchi. No wheezes. HEART: Regular rate and rhythm without murmurs or gallops. ABDOMEN: Soft, lax. No guarding. Absent bowel sounds. EXTREMITIES: Lower extremity exam, ankle edema bilaterally. NEUROLOGIC: Sedated, noncooperative. PSYCHIATRIC: Sedated, not cooperative. LABORATORY RESULTS: The patient's lab values were reviewed at length. Blood glucose values over the past several days have been reviewed and it was noted that the patient has had blood glucose values in the low 100s that have gradually risen to where they are most recently at 249 mg/dL. [place] [address] CONSULTATION Name: ALY JUSTICE Room #: 246-P ADM IN M.R.#: [id number] Admission: 07/09/20 Attend Phys: Brijesh Lazo MD Discharge: Date of : 83 Report #: [id number] been instances of severe hypoglycemia on record. Sodium 141, potassium 3.9, chloride 103, CO2 of 34, anion gap 4, BUN 22, creatinine 0.5, AST 25, total bilirubin 0.7, direct bilirubin 0.2, calcium 8.0, phosphorus 3.3, magnesium 2.0, alkaline phosphatase 205, ALT 46, total protein 4.5, albumin 1.8, EGFR 140. Lactic acid 1.7. CPK 109. Troponin 0.90. Total cholesterol 240, triglycerides 214, HDL 30, LDL 142. INR 1.5. White blood count 18.7, hemoglobin 9.4, hematocrit 29.6, platelets 479. TSH 4.638. I do not have a hemoglobin A1c on record. ASSESSMENT AND PLAN: 1. Hyperglycemia, type 2 diabetes mellitus. As noted above, I do not have a detailed history on whether or not the patient had actually been given a formal diagnosis of type 2 diabetes mellitus and whether or not she was actively treated for it as an outpatient. However, there have been ample documentations of diabetic range hyperglycemia since her hospital admission. This in itself is not necessarily constitute a full blown diagnosis of type 2 diabetes mellitus as it could be stress induced as well as compounded by the need for ongoing high dose glucocorticoid therapy, which she remains on. In fact, the patient has needed minimal amounts of insulin support over the past several days. Her blood glucose values have started to rise over 200, which is expected given the initiation of TPN support a few days ago. Given the utilization of TPN, I would like to instate therapy with scheduled Humalog insulin at a dose of 40 units q.6 hours in addition to low intensity Humalog supplemental scale to be utilized only if her blood glucose is over 200 mg/dL. As we do so, I would like to hold off Lantus for the time being, especially given the extremely low dose requirement that she has at this point. This can be resumed based on her needs and depending on her blood glucose pattern going forward. I will maintain blood glucose monitoring q.6 hours. Also, I would like to obtain a hemoglobin A1c to get a better overall assessment of her glycemic state over the past few months. 2. Hypertension. The patient's blood pressure control has been marginal, she is to continue with the current regimen, which will be monitored and adjusted as per the critical care, and Hospital Medicine teams. 3. Respiratory failure. The patient has needed mechanical ventilation support for more than 3 weeks, she is under the close care and monitoring of the pulmonary ICU team. 4. Hypothyroidism. The patient's recorded TSH is consistent with subclinical hypothyroidism. However, I would not pursue further thyroid workup given her critical illness and the difficulty of establishing an accurate assessment of her thyroid function under the circumstances. However, she would benefit from revisiting this issue 6-8 weeks out, hopefully, under better clinical circumstances. I have reviewed the patient's clinical care notes, laboratory data, and other pertinent clinical information for over 35 minutes in addition to my encounter [address] [address] CONSULTATION Name: WASHINGTONALY Room #: 246-P ADM IN M.R.#: [id number] Admission: 07/09/20 Attend Phys: Brijesh Lazo MD Discharge: Date of : 83 Report #: [id number] time with the patient. I appreciate this consultation by Dr. Velez. <ELECTRONICALLY SIGNED> By: Kandy Dang MD 08/02/20 0756 [id number] Kandy Dang MD /nt
--- NOTE | 2020-08-02 18:59 | NUR ---
Patient stable throughout the day. Heart rate and rhythm stable. Blood pressures elevated. PRN clonidine, enalipril, and morphine given as well as scheduled metoprolol. BP continued in the 160's. Dr. Lazo called and orders recieved to increase metoprolol. Sedation remians Versed 6 mg/hr, dilaudid 1mg/hr, precedex at 1 mcg/kg/hr. Patient opens eyes on own. Difficult to tell if she is tracking. Does not apprear to follow commands. Albumin and lasix given this am with good results. 4525 of urine output. No BM today. Spoke with patient's Praful cole, over the phone, update on plan of care. See documentation on interventions for assessment details.
[2020-08-03] VITALS (17 sets, daily range): BP systolic 135–188; BP diastolic 83–103
--- NOTE | 2020-08-03 10:08 | PATH ---
[facility] [address] [place] [address] PATHOLOGY RPT PROCEDURE Name: ALY JUSTICE Room #: 246-P ADM IN M.R.#: [id number] Admission: 07/09/20 Date of : 83 Discharge: Report #: [id number] Path Case #: [id number] [facility] Accession Number: [id number] . 01 Material submitted: . PART A: stomach - BIOPSY OF GASTRITIS NEAR PYLORIS R/O ADENOMA PART B: stomach - BIOPSY OF PYLORIC DOROTHY R/O ADENOMA PART C: stomach - BIOPSY OF GASTRITIS R/O H. PYLORI . 01 Clinical history: . GASTRIC OUTLET OBSTRUCTION, WITH THICKENED GASTRIC WALL ON IMAGING STUDIES. RESPIRATORY FAILURE, PE, ACIDOSIS, PUI. . 02 Diagnosis: A. 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 - Negative for Helicobacter pylori. . B. 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 - Negative for Helicobacter pylori. . C. Stomach "gastritis", endoscopic biopsy: - Gastric oxyntic mucosa with chronic active gastritis with reactive atypia of gastric glands. - Negative for intestinal metaplasia, dysplasia, and malignancy. - Negative for Helicobacter pylori. . ([place]:kalpana; 07/21/2020) . The results are discussed with Dr. Dow's on 07/21/20. MBR 07/22/2020 1529 Local . 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 The immunophenotypeof the tumor is consistent with gastric origin. . Her2 and MSI testing will be performed on the tumor and the results with be the subject of an addendum report. . The case was seen in co-review with Dr. Timbo Castillo, who concurs with the above diagnosis. . ([place]:kalpana; 07/21/2020) [address] [address] PATHOLOGY RPT PROCEDURE Name: ALY JUSTICE Room #: 246-P ADM IN M.R.#: [id number] Admission: 07/09/20 Date of : 83 Discharge: Report #: [id number] Path Case #: [id number] . 02 Addendum: . MICROSATELLITE INSTABILITY REPORT (MSI): . At the request of the Dr. Arreola, mismatch repair (MMR) protein immunohistochemical staining was performed. . Specimen:Formalin fixed paraffin embedded tissue Specimen ID:[id number] Reason for testing:To evaluate for evidence of defective mismatch repair proteins. Method:Immunohistochemical staining for the presence or absence of protein expression of one or more of the following MMR protein markers: MLH1, MSH2, MSH6 and PMS2. Tumor type:Gastric adenocarcinoma with signet ring cell features . Results: MLH1 - Preserved MSH2 - Preserved MSH6 - Preserved PMS2 - Preserved . Mismatch Repair Status:MMR Proficient (MMR-P) . Interpretation: . (MMR-P) All four MMR proteins are preserved within tumor cells. This suggests the presence of normal DNA mismatch repair function within the tumor and an observable defect in mismatch repair is not identified. The likelihood that this patient has an inherited germline mutation syndrome due to defective mismatch repair is reduced but not totally eliminated. If the patient has a strong personal or family history of HPNCC/Dubose syndrome related cancers (colorectal, endometrial, gastric, ovarian, pancreatic, ureter/renal pelvis, biliary tract, brain, small bowel and Eduar-David syndrome), consider MSI testing by PCR methodology. Suggest clinical correlation and follow up. . These test results are designed for screening purposes only and are useful tools in identifying cancer patients that are more likely to have Dubose Syndrome related diagnoses. Tests should be interpreted in the context of clinical findings, family history and laboratory data. Abnormal IHC results for MMR protein expression are not considered diagnostic for Dubose Syndrome. . ([place]:kalpana; 07/28/2020) . Professional services performed by [facility] at [address] [address]. Technical services performed by [facility] at [address] [place] [address] [address] [place] [address] PATHOLOGY RPT PROCEDURE Name: ALY JUSTICE Room #: 418-P ADM IN M.R.#: [id number] Admission: 07/09/20 Date of : 83 Discharge: Report #: [id number] Path Case #: [id number], [address], [place] [address]. LBQ/07/28/2020 Addendum Electronically Signed by Alena Morris MD, Pathologist Addendum #2: Special studies report received from [facility], [address] [place] [address], [facility] [address], [place], [address], on case [id number], labeled with their number [id number], dated 08/02/2020. . Gastroesophageal Adenocarcinoma HER2 IHC Analysis . Specimen Site: Stomach, Pyloric Channel, Endoscopic Biopsy,Adenocarcinoma, Poorly Differentiated With Signet Ring Cell Features Specimen ID #: [id number] . HERCEPTEST (Gastric) Negative Score: 0 Analysis: Manual . Time to Fixation (Cold Ischemic Time): Not Provided Duration of Fixation: Not Provided Type of Fixative: 10% Neutral Buffered Formalin . at [facility]. Justin Coleman MD Pathologist . Methodology: The HercepTest contains reagents required to complete a two-step immunocytochemical staining procedure for routinely processed, paraffin-embedded specimens. Following incubation with the primary rabbit antibody to human HER2 protein, this kit employs a [id number] Visualization Reagent based on dextran technology. This reagent consists of both secondary and goat anti-rabbit immunoglobulin molecules and horseradish peroxidase molecules linked to a common dextran polymer backbone. The enzymatic conversion of the subsequently added chromogen results in formation of a visible reaction product at the antigen site. The antibody is intended for in-vitro diagnostic use. . Intended Use: The HercepTest (DAKO) is a semi-quantitative immunocytochemical FDA-cleared assay to determine HER2 protein expression in formalin-fixed, paraffin embedded cancer tissue from patients with metastatic gastric or gastroesophageal junction adenocarcinoma. HercepTest is indicated as an aid in the assessment of gastric cancer patients for whom Herceptin r (trastuzumab) treatment is being considered. Reference ranges for this test in cancer types other than gastrointestinal adenocarcinoma or breast [facility] [address] [place] [address] PATHOLOGY RPT PROCEDURE Name: ALY JUSTICE Room #: 246-P ADM IN M.R.#: [id number] Admission: 07/09/20 Date of : 83 Discharge: Report #: [id number] Path Case #: [id number] carcinoma are not approved at this time. . Disclaimer: This Test was performed by [employer] at [facility], [address]. . [facility] is a business unit of [employer] a wholly-owned subsidiary of [employer]. . This assay has not been validated on decalcified tissues. Results should be interpreted with caution if this specimen was decalcified given the likelihood of false negativity on decalcified specimens. . Any image(s) that accompany this report is/are a sales representative printing paper image(s) only and should not be used to render a diagnosis. . This interpretation is contingent on the specimen and the clinical information received. . For any special tests/stains performed, known positive cells or tissues are tested with each marker and examined to ensure positivity. Positive and negative internal controls, if present, react appropriately. . This analysis is an adjunct to the evaluation of the referring physician and does not represent a final diagnosis. . The immunohistochemistry tests performed at [employer], [place]. were validated on tissue fixed in 10% neutral buffered formalin. The performance characteristics of the tests performed on tissue processed in other fixatives is not known. . HER2 testing at [employer] is performed in accordance with the guidelines of the 2016 updated publication "HER2 Testing and Clinical Decision Making in Gastroesophageal Adenocarcinoma". If the result is EQUIVOCAL (2+), the specimen should be additionally assessed by FISH or other VALERI method. . HER2 guidelines state that specimens should be rapidly placed in fixative, ideally within 1 hour (cold ischemic time/time to fixation) and for a minimum of 6 and a maximum of 72 hours. Prolonged cold ischemic time of greater than 1 hour or duration of fixation outside the recommended guideline of 6 to 72 hours may lead to false negative results. Results obtained on specimens that fall outside the recommended guidelines for cold ischemic time or duration of fixation should be interpreted with caution and consideration given to repeat testing using an alternate technology or repeat testing on a different specimen that meets the preanalytic guidelines for cold ischemic time and duration of fixation. [address] [address] PATHOLOGY RPT PROCEDURE Name: VAIBHAV JUSTICEIA Room #: 246-P ADM IN M.R.#: [id number] Admission: 07/09/20 Date of : 83 Discharge: Report #: [id number] Path Case #: [id number] . References: CRISTELA Suazo, HARINDER Rich, et al. HER2 Testing and Clinical Decision Making in Gastroesophageal Adenocarcinoma. Guideline from the College of [place] Pathologists, [place] Society for Clinical Pathology, and [place] Society of Clinical Oncology. Arch Pathol Lab Med. 2016 August Vol 140: 5012-1140. . Reference Ranges for Surgical Specimens 0 Negative No reactivity or membranous reactivity in < 10% of tumor cells 1+ Negative Faint/barely perceptible membranous reactivity in = 10% of tumor cells; cells are reactive only in part of their membrane 2+ Equivocal Weak to moderate complete, basolateral or lateral membranous reactivity in = 10% of tumor cells 3+ Positive Strong complete basolateral or lateral membranous reactivity in = 10% of tumor cells . Reference Ranges for Biopsy Specimens 0 Negative No reactivity or no membranous reactivity in any tumor cell 1+ Negative Tumor cell cluster (= 5 neoplastic cells) with a faint/barely perceptible membranous reactivity irrespective of percentage of tumor cells stained 2+ Equivocal Tumor cell cluster (= 5 neoplastic cells) with a weak to moderate complete, basolateral or lateral membranous reactivity irrespective of percentage of tumor cells stained 3+ Positive Tumor cell cluster (= 5 neoplastic cells) with a strong complete, basolateral or lateral membranous reactivity irrespective of percentage of tumor cells stained . A complete copy of the report is on file. . Professional services performed by [employer] at [address], [place] [address]. Technical services performed by [employer], [place] at [address], [place] [address]. . (IUV:amj 08/03/2020) AZJ/08/03/2020 Addendum Electronically Signed by Nancy Kelly MD, Pathologist . 02 Electronically signed: . Alena Morris MD, Pathologist NPI- [id number] . 01 Gross description: . [facility] [address] [place] [address] PATHOLOGY RPT PROCEDURE Name: ALY JUSTICE #: 246-P ADM IN M.R.#: [id number] Admission: 07/09/20 Date of : 83 Discharge: Report #: [id number] Path Case #: [id number] A. Received in formalin labeled "[facility], BX of gastritis near pylorus rule out adenoma" are multiple langley-brown soft tissue fragments measuring in aggregate 0.6 x 0.5 x 0.1 cm. The specimen is submitted entirely in A1. . B. Received in formalin labeled "[facility], BX of pyloric channel rule out adenoma" are multiple langley-brown soft tissue fragments measuring in aggregate 0.8 x 0.5 x 0.1 cm. The specimen is submitted entirely in B1. . . C. Received in formalin labeled "[facility], BX of gastritis rule out H. pylori" are multiple langley-brown soft tissue fragments measuring in aggregate 1.0 x 0.4 x 0.1 cm. The specimen is submitted entirely in C1. ([facility]; 07/19/2020) [facility] 07/19/2020 1756 Local . 02 Microscopic: . Immunohistochemical stain results (properly controlled): . AE1/AE3 (A1, B1) - highlights gastric mucosal surface epithelium, individual tumor cells and crude glandular structures within the lamina propria. . CK7 (A1, B1) - highlights gastric mucosal surface epthelium, individual tumor cells, nests of tumor cells, and crude neoplastic glandular structures with the lamina propria. . CD20 (A1, B1) - highlights some mucosal surface epithelium, and some tumor cells. . Helicobacter pylori (A1, B1, C1) - negative for organisms. . Special stain results (properly controlled): . Mucin (A1, B1) - highlights intra-cytoplasmic mucin globules in scattered tumor cells. . ([place]:kalpana; 07/21/2020) . 02 Pathologist provided ICD-10: C16.9, J96.90, E87.2 . 02 CPT . 710572, 314012, 969555, W92425, 292732, 257114, V23425, E02285, M71571 Specimen Comment: A courtesy copy of this report has been sent to [phone], [phone] Specimen Comment: [id number] Specimen Comment: Report sent to / DR RAMON [facility] [address] [place] [address] PATHOLOGY RPT PROCEDURE Name: ALY JUSTICE Room #: 246-P ADM IN M.R.#: [id number] Admission: 07/09/20 Date of : 83 Discharge: Report #: [id number] Path Case #: [id number] Performed at: 01 [facility] [address], [place], [place] [id number] MD Timbo Castillo MD Phone: [phone] Performed at: [address] [facility] [address] [id number] MD Nancy Kelly MD Phone: [phone]
--- NOTE | 2020-08-03 19:19 | NUR ---
Patient had an uneventful day. Stable vital signs. Took patient to CT without incident. Pt's fiance came in this evening and he was updated on plan of care. See documentation on inteventions for assessment details.
[2020-08-04] VITALS (29 sets, daily range): BP systolic 123–179; BP diastolic 89–117
[2020-08-04 05:18] LABS: HEMATOCRIT 31.5 % (37.0-47.0); HEMOGLOBIN 10.2 gm/dL (12.0-15.0); MCH 27.6 pg (26.0-34.0); MCHC 32.3 g/dL (28.0-37.0); MCV 85.4 fL (80.0-100.0); RBC 3.69 mil/uL (4.20-5.00); RDW 26.2 % (10.5-14.5); WBC 20.4 thou/uL (4.0-11.0)
[2020-08-04 05:20] LABS: CALCIUM 8.5 mg/dL (8.5-10.1); CREATININE 0.4 mg/dL (0.6-1.0); MAGNESIUM 1.7 mg/dL (1.8-2.4); PHOSPHORUS 2.6 mg/dL (2.5-4.9)
[2020-08-04 05:33] LABS: POTASSIUM 2.7 mmol/L (3.5-5.1)
--- NOTE | 2020-08-04 06:00 | NUR ---
REMAINS INTUBATED AND SEDATED WITH VERSED DILAUDID AND PRECEDEX. OPEN EYES TO NAME. SEEMS TO TRY TO UNDERSTAND. SINUS DANIEL. ENAPRIL 1 X FOR HYPERTENSION. 3100 CC UO THIS SHIFT. NPO FOR OR TODAY AT 1200 NOON WILL CONBT TO MONITOR
--- NOTE | 2020-08-04 06:00 | NUR ---
APTT 43 HEPARIN GTT INCREASED BY 2 CC TO 12.6 FROM 10.6 CC
--- NOTE | 2020-08-04 07:00 | NUR ---
HEPARIN GTT STOPPED PROMPTLY AT 0700 FOR OR THIS AM.
[2020-08-04 08:53] LABS: BE(vivo) 7.2 mmol/L (-2 to +3); HCO3 32.1 mmol/L (22.0-26.0); PCO2 47.3 mmHg (35.0-45.0); PO2 90.9 mmHg (80.0-100.0); sO2 97.2 % (92.0-98.0)
--- NOTE | 2020-08-04 12:33 | TEE ---
[facility] [place] [address] TRANSESOPHAGEAL ECHOCARDIOGRAM Name: ALY JUSTICE Room #: 246-P ADM IN M.R.#: [id number] Admission: 07/09/20 Attend Phys: Brijesh Lazo MD Discharge: Date of : 83 Report #: [id number] THIS REPORT FOR: cc: FAM - Family physician unknown FAM - Family physician unknown Familia Everett MD [facility] ~ APPROVED REPORT Study performed: 08/04/2020 11:29:41 EXAM: Transesophageal Echocardiogram Patient Location: ICU Status: routine BSA: 1.97 HR: 78 bpm BP: 138/90 mmHg Rhythm: NSR/tachycardia Other Information Study Quality: Good Indications Rule out endocarditis. Source of cardiemoblic infarcts. Pulmonary embolism. Procedure After obtaining informed consent, patient underwent transesophageal echo in the ICU. Type of Sedation : Conscious Sedation Sedation was administered by JHON [place] [place]. Sedation was achieved intravenously with: Fentanyl () Propofol () Echo enhancement indication: R/O Septal defect. Echo enhancement agent administered: Agitated Saline The MUNIR was performed without complications. Throughout the procedure, the blood pressure, pulse oximetry, cardiac rhythm, and rate were monitored. The patient tolerated the procedure without adverse effects. Recovery from conscious sedation was uneventful and vital signs were stable. Left Ventricle The left ventricle is normal size. There is normal LV segmental wall motion. There is normal left ventricular wall thickness. Left [facility] [address] [place] [address] TRANSESOPHAGEAL ECHOCARDIOGRAM Name: ALY JUSTICE Room #: 246-P ADM IN M.R.#: [id number] Admission: 07/09/20 Attend Phys: Brijesh Lazo MD Discharge: Date of : 83 Report #: [id number] ventricular systolic function is normal. LVEF is 55-60%. Right Ventricle The right ventricle is normal size. The right ventricular systolic function is normal. Atria The left atrium size is normal. No thrombus is visualized in the left atrium or appendage. No shunting noted with contrast bubble injection. The right atrium size is normal. Aortic Valve The aortic valve is normal in structure. No aortic regurgitation is present. There is no aortic valvular stenosis. Mitral Valve The mitral valve is normal in structure. Trace mitral regurgitation. No evidence of mitral valve stenosis. Tricuspid Valve The tricuspid valve is normal in structure. Mild tricuspid regurgitation. Pulmonic Valve The pulmonary valve is normal in structure. Mild pulmonic regurgitation. Great Vessels The aortic root is normal in size. The ascending aorta is normal in size. IVC is normal in size and collapses >50% with inspiration. The pulmonary artery is normal. Pericardium There is no pericardial effusion. <Conclusion> 1. Normal transesophageal echocardiogram with Doppler. <ELECTRONICALLY SIGNED> By: Familia Everett MD, [facility] 08/04/20 1233 1233 1233 Familia Everett MD, FACC /INF
[2020-08-04 14:35] LABS: HEMATOCRIT 32.2 % (37.0-47.0); HEMOGLOBIN 10.5 gm/dL (12.0-15.0); MCH 27.6 pg (26.0-34.0); MCHC 32.5 g/dL (28.0-37.0); MCV 84.7 fL (80.0-100.0); RBC 3.8 mil/uL (4.20-5.00); RDW 25.5 % (10.5-14.5); WBC 20.7 thou/uL (4.0-11.0)
[2020-08-04 15:12] LABS: INR 1.2
--- NOTE | 2020-08-04 18:22 | NUR ---
ASSUMED CARE OF PT AT 0700, PT IS A GCS 6, PT CONT ON VENT AND IS ON SEDATION FOR VENT MANAGEMENT. PT HAS BEEN AFIBRILE, VSS. PT HAS BEEN TO MRI. CONSULTS TO NEUROLOGY MADE TODAY AND PT ALREADY SEEN. PT FAMILY UPDATED.
[2020-08-05] VITALS (43 sets, daily range): BP systolic 113–167; BP diastolic 77–101
--- NOTE | 2020-08-05 04:49 | NUR ---
ASSUMED PT CARE AT 1900. VSS. PT SEDATED AND INTUBATED, SEDATION VACATION FOR 15 MINUTES, PT DID NOT FOLLOW COMMANDS, HOWEVER SHE OPENS HER EYES SPONTANEOUSLY, HAS POSITIVE COUGH AND GAG, FACIAL GRIMACES TO PAIN. PT WAS STABLE OVERNIGHT, NO ACUTE CHANGES, UODATED SIGNIFICANT OTHER DERRECK AT 2115 LAST NOC. FIO2 DOWN TO 35% SATS MAINTAINED 02 AT 99% WILL CONTINUE TO MONITOR.
[2020-08-05 06:17] LABS: CREATININE 0.4 mg/dL (0.6-1.0); MAGNESIUM 1.8 mg/dL (1.8-2.4); POTASSIUM 3.2 mmol/L (3.5-5.1)
--- NOTE | 2020-08-05 16:32 | NUR ---
cm spoke with nickolas via phone call, he requested letter. i have been paying the rent and her car loan, but enter the wrong pin and the bank locked her account, per bank asking for dpoa. cm education that can not do dpoa until tania able to complete paperwork. can provide letter to [employer]. stating that she is incapacitated and requiring 24hr care per day. have been communicated with nickolas fonseca, the sig other. she remains on vent. surgery were put on hold. Neuro consulted. no anticipated dc over the weekend. letter placed on pt chart for nickolas to flower picker when he visit tomorrow.
--- NOTE | 2020-08-05 18:04 | NUR ---
PT REMAINS INTUBATED AND VENTILATED. NO VENT CHANGES. WEANING NOT DONE TODAY. TENTATIVELY SCHEDULED FOR SURGERY ON SATURDAY. VS REMAIN STABLE. AFEBRILE THROUGHOUT THE DAY. BM X 2 TODAY. URINE OUTPUT ADEQUATE. PT'S SIGNIFICANT OTHER VISITED TODAY. WITH DECREASED SEDATION, PT AWAKENS AND APPEARS TO FOLLOW SIMPLE COMMANDS LIKE "BLINK YOUR EYES" AND "OPEN YOUR MOUTH". PT REMAINS VERY WEAK IN ALL EXTREMITIES AND IS UNRESTRAINED. PT PROGRESSING TOWARD GOALS.
[2020-08-06] VITALS (20 sets, daily range): BP systolic 125–179; BP diastolic 77–117
[2020-08-06 04:57] LABS: BE(vivo) 8.5 mmol/L (-2 to +3); HCO3 33.3 mmol/L (22.0-26.0); PCO2 47.3 mmHg (35.0-45.0); PO2 92.2 mmHg (80.0-100.0); pH 7.465 (7.360-7.450); sO2 97.4 % (92.0-98.0)
[2020-08-06 05:59] LABS: HEMATOCRIT 29.9 % (37.0-47.0); HEMOGLOBIN 9.6 gm/dL (12.0-15.0); MCH 27.5 pg (26.0-34.0); MCHC 32.1 g/dL (28.0-37.0); MCV 85.7 fL (80.0-100.0); RBC 3.49 mil/uL (4.20-5.00); WBC 18.8 thou/uL (4.0-11.0)
[2020-08-06 06:01] LABS: PLATELET COUNT 244 thou/uL (150-400)
[2020-08-06 06:12] LABS: ALBUMIN 2.1 g/dL (3.4-5.0); CALCIUM 7.8 mg/dL (8.5-10.1); CREATININE 0.5 mg/dL (0.6-1.0); MAGNESIUM 1.7 mg/dL (1.8-2.4); POTASSIUM 3.3 mmol/L (3.5-5.1); TOTAL BILIRUBIN 1.3 mg/dL (0.2-1.0); TOTAL PROTEIN 4.5 g/dL (6.4-8.2)
[2020-08-06 06:25] LABS: ABSOLUTE NEUTROPHILS 15.6 thou/uL (1.4-8.2); ANISOCYTOSIS 3+; METAMYELOCYTES 1 %; POLYCHROMASIA 1+
[2020-08-06 06:26] LABS: LARGE PLATELETS OCCASIONAL; SCHISTOCYTES OCCASIONAL
--- NOTE | 2020-08-06 17:33 | NUR ---
Patient fairly awake this am. Patient's fiance at bedside. Patient aware and responding to his voice by opening mouth, blinking, and grimacing, moving head side to side. HR got up inot the 160's and SBP 190's. Once he was done visiting, sedation increased and patient back to sedated, resting comfortably. Fiarly uneventful day. See documentation on interventions for assessment detials. Plan of care discussed with finance.
[2020-08-07] VITALS (28 sets, daily range): BP systolic 140–191; BP diastolic 83–116
[2020-08-07 03:40] LABS: BE(vivo) 9.7 mmol/L (-2 to +3); HCO3 33.5 mmol/L (22.0-26.0); PCO2 42.8 mmHg (35.0-45.0); PO2 99.6 mmHg (80.0-100.0); pH 7.512 (7.360-7.450)
[2020-08-07 06:25] LABS: ABSOLUTE NEUTROPHILS 13.3 thou/uL (1.4-8.2); BASOPHILS 0.2 % (0.0-2.0); EOSINOPHILS 0.1 % (0.0-3.0); HEMATOCRIT 25.4 % (37.0-47.0); HEMOGLOBIN 8.7 gm/dL (12.0-15.0); LYMPHOCYTES 10.5 % (24.0-44.0); MCH 29.4 pg (26.0-34.0); MCHC 34.4 g/dL (28.0-37.0); MCV 85.5 fL (80.0-100.0); MONOCYTES 8.2 % (1.0-8.0); PLATELET COUNT 209 thou/uL (150-400); RBC 2.97 mil/uL (4.20-5.00); RDW 27.4 % (10.5-14.5); WBC 16.4 thou/uL (4.0-11.0)
[2020-08-07 06:31] LABS: CALCIUM 8.6 mg/dL (8.5-10.1); CREATININE 0.5 mg/dL (0.6-1.0); MAGNESIUM 1.8 mg/dL (1.8-2.4); PHOSPHORUS 3.4 mg/dL (2.5-4.9); POTASSIUM 3.2 mmol/L (3.5-5.1); TOTAL BILIRUBIN 2.1 mg/dL (0.2-1.0)
--- NOTE | 2020-08-07 12:43 | HC ---
[facility] [place] [address] CONSULTATION Name: ALY JUSTICE Room #: 246-P ADM IN M.R.#: [id number] Admission: 07/09/20 Attend Phys: Brijesh Lazo MD Discharge: Date of : 83 Report #: [id number] THIS REPORT FOR: cc: FAM - Family physician unknown FAM - Family physician unknown Elia Jesus MD ~ DATE OF SERVICE: 08/04/2020 HISTORY OF PRESENT ILLNESS: This is a 35-year-old female patient for whom a Neurology consultation was requested because of abnormal CT of the head. CT film was reviewed and this is a very abnormal CT. The patient is unable to provide any history. History is taken from the records and I also called the patient's boyfriend and tried to get history from him. REVIEW OF SYSTEMS: Indicate that this patient has bilateral pulmonary emboli. She has a filter. She is presently on heparin. She also developed some anemia. She had acute respiratory failure. She is being followed by multiple consultants. At one time, it looks like this patient had some sepsis and shock. There is some history of seizures before this happened, but I talked to the boyfriend. He said he is not aware of any history like that. She had elevated liver functions. This was her relevant 14-point review of system. PAST MEDICAL HISTORY: Positive for emboli. Her GFR has been normal here throughout except one time where it was 46 on admission. FAMILY HISTORY: Unavailable. SOCIAL HISTORY: The only person I can talk to is the boyfriend. PHYSICAL EXAMINATION: The patient's examination is pretty limited because she is sedated. She opens her eyes somewhat. That is all she did. She did not move anything and the nurses say they have not seen her moving anything. It is not possible to do the visual field examination in this patient. She is basically flaccid and lays there. She is intubated. CT was reviewed. It is a noncontrast and it is as summarized above. IMPRESSION: Very abnormal CT and we need to determine the etiology. It can be strokes, but it can be an abscess or any postinfectious process. She has a significant mass effect. The easiest thing will be to do an MRI of the brain with and without contrast and see if these lesions are enhancing. That will be the first step. Further management will depend upon the MRI of the brain with and without contrast. Nurses say that Pulmonology says okay for her to take down and we will get [facility] [address] [place] [address] CONSULTATION Name: ALY JUSTICE Room #: 246-P ADM IN .R.#: [id number] Admission: 07/09/20 Attend Phys: Brijesh Lazo MD Discharge: Date of : 83 Report #: [id number] clearance from Cardiology also and decide about further management. I will give a call to Dr. Lazo also, who is a hospitalist. We will get an EEG because of a history of seizure in this patient, although that history is not very clear. I discussed that with the boyfriend and pros and cons of the approaches and he wants to proceed with it. Thank you very much for this referral. <ELECTRONICALLY SIGNED> By: Elia Jesus MD 08/07/20 1243 [id number] [id number] Elia Jesus MD /nt
--- NOTE | 2020-08-07 12:44 | EEG ---
[facility] [place] [address] ELECTROENCEPHALOGRAM Name: ALY JUSTICE Room #: 246-P ADM IN M.R.#: [id number] Admission: 07/09/20 Attend Phys: Brijesh Lazo MD Discharge: Date of : 83 Report #: [id number] THIS REPORT FOR: //name// CC: Seamus Yuen FAM unknown Darron Lammoglia Brijesh Hare Ko DATE OF SERVICE: 08/06/2020 FINDINGS: This patient is being evaluated for altered mental status. EEG was done by placing the electrode by standard 10-20 system of electrode placement. Both referential and sequential montages were used for recording. Background activity in this patient is pretty suppressed on both sides. It appeared to be about 6 Hz and 15 microvolt. Photic stimulation is unremarkable. EEG is pretty monotonous. It continued to be the same throughout the record. IMPRESSION: This is an abnormal EEG, which is disorganized and poorly formed. That is a nonspecific abnormality, which can occur with encephalopathy, effect of psychotropic medication, dementia, etc. Clinical correlation is recommended. <ELECTRONICALLY SIGNED> By: Elia Jesus MD 08/07/20 1244 1147 1214 Elia Jesus MD /nt
--- NOTE | 2020-08-07 17:50 | NUR ---
TOOK OVER PATIENT CARE AT 0700. HER SIGNIFICANT OTHER WAS AT THE BEDSIDE FROM 1600 TO 1700. ANSWERED ALL QUESTIONS PER PLAN OF CARE. TMAX OF 99.2. NO SIGNIFICANT CHANGES. TENITIVE PLAN FOR TRACH TOMORROW.
[2020-08-08] VITALS (47 sets, daily range): BP systolic 129–194; BP diastolic 89–114
[2020-08-08 08:01] LABS: HEMATOCRIT 28.6 % (37.0-47.0); MCH 27.9 pg (26.0-34.0); MCHC 31.6 g/dL (28.0-37.0); MCV 88.2 fL (80.0-100.0); RBC 3.24 mil/uL (4.20-5.00); WBC 22.3 thou/uL (4.0-11.0)
[2020-08-08 08:05] LABS: CALCIUM 8.9 mg/dL (8.5-10.1); CREATININE 0.6 mg/dL (0.6-1.0); POTASSIUM 3.1 mmol/L (3.5-5.1)
--- NOTE | 2020-08-08 09:41 | NUR ---
TOOK OVER CARE AT 0700. DR. CAVANAUGH CALLED AT 0715 TO SAY SHE IS GOING INTO THE OR FOR A TRACHEOSTOMY AT 1300 AND WANTED US TO STOP THE HEPARIN DRIP AND GET CONSENT FOR SURGERY. HE ALSO ASKED IF WE COULD TRY TO DROP AN NG AND IF THAT PLACEMENT IS SUCCESSFUL TO TAKE OUT THE OG. DR. RAMON ROUNDED ON THE PATIENT AT 0930 AND WAS UNDER THE IMPRESSIONG SHE WAS GOING TO SURGERY FOR A TRACHEOSTOMY, PARTIAL TUMOR RESECTION AND A J TUBE PLACEMENT. HE TEXTED DR. CAVANAUGH TO CLARIFY PROCEEDURE. NO NEW ORDERS GIVEN BY DR. RAMON. SPOKE TO PATIENTS SIGNIFICANT OTHER AT 0935 AND HE IS AWARE SHE IS GOING TO SURGERY AT 1300 AND SAID HE WILL BE HERE TO SIGN THE CONCENT PRIOR TO THAT.
[2020-08-09] VITALS (48 sets, daily range): BP systolic 89–161; BP diastolic 49–109
[2020-08-09 03:40] LABS: MCH 28.7 pg (26.0-34.0); MCHC 32.6 g/dL (28.0-37.0); MCV 87.9 fL (80.0-100.0); RBC 2.27 mil/uL (4.20-5.00); RDW 28.6 % (10.5-14.5); WBC 18.8 thou/uL (4.0-11.0)
[2020-08-09 03:43] LABS: HEMOGLOBIN 6.5 gm/dL (12.0-15.0)
[2020-08-09 03:59] LABS: CALCIUM 8.6 mg/dL (8.5-10.1); CREATININE 0.5 mg/dL (0.6-1.0); POTASSIUM 3.8 mmol/L (3.5-5.1)
[2020-08-09 08:39] LABS: MCH 28.3 pg (26.0-34.0); MCHC 32.1 g/dL (28.0-37.0); MCV 88.2 fL (80.0-100.0); RBC 2.01 mil/uL (4.20-5.00); RDW 28.4 % (10.5-14.5); WBC 16.3 thou/uL (4.0-11.0)
[2020-08-09 08:41] LABS: HEMATOCRIT 17.7 % (37.0-47.0); HEMOGLOBIN 5.7 gm/dL (12.0-15.0)
--- NOTE | 2020-08-09 09:15 | NUR ---
[address] [place] [address] UP.--VW 0915- IN.--VW
[2020-08-09 16:05] LABS: HEMATOCRIT 25.6 % (37.0-47.0); MCH 28.4 pg (26.0-34.0); MCHC 32.3 g/dL (28.0-37.0); MCV 87.8 fL (80.0-100.0); RBC 2.92 mil/uL (4.20-5.00); RDW 21.3 % (10.5-14.5); WBC 27.8 thou/uL (4.0-11.0)
[2020-08-09 16:07] LABS: HEMOGLOBIN 8.3 gm/dL (12.0-15.0)
[2020-08-10] VITALS (47 sets, daily range): BP systolic 118–192; BP diastolic 73–110
--- NOTE | 2020-08-10 04:36 | NUR ---
ASSUMED PT CARE AT 1900. HR ELEVATED, IN 130S. METOPROLOL GIVEN SCHEDULED. PT SEEN WITH FACIAL GRIMACING INTERMITENTLY, PT DOESNT FOLLOW COMMANDS, HOWEVER SHE OPENS EYES SPONTANEOUSLY. COPIOUS AMT OF ORAL SECERTIONS NOTED. PT TO HAVE SURGERY TODAY
[2020-08-10 05:51] LABS: HEMATOCRIT 22.3 % (37.0-47.0); HEMOGLOBIN 7.3 gm/dL (12.0-15.0); MCHC 32.9 g/dL (28.0-37.0); MCV 88.2 fL (80.0-100.0); RBC 2.52 mil/uL (4.20-5.00); RDW 22.4 % (10.5-14.5); WBC 24.8 thou/uL (4.0-11.0)
[2020-08-10 06:12] LABS: CREATININE 0.4 mg/dL (0.6-1.0); POTASSIUM 3.4 mmol/L (3.5-5.1)
--- NOTE | 2020-08-10 08:00 | NUR ---
PATIENT LEFT UNIT FOR PROCEDURE WITH OR TEAM @ 7748.
--- NOTE | 2020-08-10 09:37 | NUR ---
SPOKE WITH PATIENT'S SIGNIFICANT OTHER FROM [id number]. HE WAS UPDATED AND EDUCATED ON PATIENT CONDITION, PROCEDURE, AND PLAN OF CARE.
[2020-08-10 11:45] LABS: URINE BILIRUBIN NEGATIVE (Negative); URINE BLOOD 1+ (Negative); URINE CLARITY CLEAR; URINE COLOR YELLOW; URINE GLUCOSE-RANDOM* NEGATIVE (Negative); URINE KETONES NEGATIVE (Negative); URINE LEUKOCYTES-REFLEX NEGATIVE (Negative); URINE NITRITE-REFLEX NEGATIVE (Negative); URINE PROTEIN (DIPSTICK) TRACE (Negative)
[2020-08-10 11:57] LABS: BACTERIA-REFLEX None Seen /HPF (None Seen); CASTS None Seen /LPF (None Seen); CRYSTALS None Seen /LPF (None Seen); SQUAMOUS 0-3 Few /LPF (0-3); URINE RBC 3-10 Few /HPF (0-2); URINE WBC-REFLEX None Seen /HPF (0-5)
[2020-08-10 16:51] LABS: HEMATOCRIT 22.2 % (37.0-47.0); HEMOGLOBIN 7.1 gm/dL (12.0-15.0); MCH 28.3 pg (26.0-34.0); MCHC 31.8 g/dL (28.0-37.0); MCV 88.9 fL (80.0-100.0); RBC 2.5 mil/uL (4.20-5.00); RDW 23.1 % (10.5-14.5)
[2020-08-10 16:56] LABS: CALCIUM 8.4 mg/dL (8.5-10.1); CREATININE 0.5 mg/dL (0.6-1.0); MAGNESIUM 2.1 mg/dL (1.8-2.4); POTASSIUM 3.1 mmol/L (3.5-5.1)
[2020-08-11] VITALS (80 sets, daily range): BP systolic 121–175; BP diastolic 75–104
--- NOTE | 2020-08-11 04:48 | NUR ---
This RN to bedside at 1900. Upon first assessment patient had fever. This RN gave tylenol and temp came down to 99.[address] Ang aware and will round in the morning. Surgical site is clean dry and intact. Patient remains on propofol, versed, dilaudid, and TPN. CINDY drain in tact. Will continue to monitor patient.
[2020-08-11 05:27] LABS: HEMOGLOBIN 6.5 gm/dL (12.0-15.0); MCV 90.8 fL (80.0-100.0)
[2020-08-11 05:30] LABS: HEMATOCRIT 20.2 % (37.0-47.0); MCH 29.2 pg (26.0-34.0); MCHC 32.1 g/dL (28.0-37.0); RBC 2.23 mil/uL (4.20-5.00); RDW 24.6 % (10.5-14.5); WBC 24.5 thou/uL (4.0-11.0)
[2020-08-11 05:39] LABS: BE(vivo) 11.5 mmol/L (-2 to +3); PCO2 48.7 mmHg (35.0-45.0); PO2 108.4 mmHg (80.0-100.0); pH 7.487 (7.360-7.450); sO2 98.2 % (92.0-98.0)
[2020-08-11 06:48] LABS: CALCIUM 8.4 mg/dL (8.5-10.1); CREATININE 0.4 mg/dL (0.6-1.0); PHOSPHORUS 2.6 mg/dL (2.5-4.9)
[2020-08-11 07:13] LABS: POTASSIUM 2.7 mmol/L (3.5-5.1)
--- NOTE | 2020-08-11 10:04 | NUR ---
When ready to start using [employer], recommend trophic feeds of vital AF 1.2 to start 10ml/hr. Final goal of TF without any tpn, is 65ml/hr.
--- NOTE | 2020-08-11 10:55 | NUR ---
0720-ASSUMED CARE OF PT.--VW 0812-PAGE TO RE:FEVER.--VW 0815- RETURNED WILL. WILL PRE-MEDICATE FOR BLOOD TRANSFUSION.DR. KAMINSKI BY. CALLED IN EARLIER & UPDATE GIVEN. IN.--VW 0930-KAREN COBB,IN.--VW 1030- IN.SMiroslava AVALOS CALLED IN,UPDATED.--VW 1040- CALLED FOR UPDATED.--VW 1055- CALLED IN,UPDATED.--VW
--- NOTE | 2020-08-11 20:06 | NUR ---
CONSULTED TO PLACE A PICC FOR A PATIENT IN ICU TO REPLACE THE CENTRAL LINE ACCESS. ORDER AND CONSENT NOTED. THE RIGHT UPPER ARM WAS WIDLEY PATENT. A #5F TRIPLE LUMEN POWER PICC WAS PLACED PER HOSPITAL POLICY AFTER A BEDSIDE TIMEOUT WAS COMPLETED. THE LINE WAS TRIMMED TO 35CM AND ADVANCED WITHOUT DIFFICULTY. AT STA CHEST XRAY COULD NOT LOCATE THE PICC, THE PATIENT REPOSITIONED AND XRAY DONE AGAIAN SHOWING THE LINE DEEP IN THE ATRIUM. THE LINE WAS PULLED BACK 6CM AND A 3RD XRAY CONFIRMED LINE IN GOOD POSITION
[2020-08-12] VITALS (46 sets, daily range): BP systolic 116–188; BP diastolic 72–111
[2020-08-12 03:34] LABS: HEMATOCRIT 24.9 % (37.0-47.0); HEMOGLOBIN 8.2 gm/dL (12.0-15.0)
[2020-08-12 05:27] LABS: HEMATOCRIT 23.2 % (37.0-47.0); HEMOGLOBIN 7.7 gm/dL (12.0-15.0); MCH 29.5 pg (26.0-34.0); MCHC 33.4 g/dL (28.0-37.0); MCV 88.4 fL (80.0-100.0); RBC 2.62 mil/uL (4.20-5.00); RDW 18.4 % (10.5-14.5); WBC 15.6 thou/uL (4.0-11.0)
[2020-08-12 05:35] LABS: CALCIUM 8.8 mg/dL (8.5-10.1); CREATININE 0.3 mg/dL (0.6-1.0); POTASSIUM 3.3 mmol/L (3.5-5.1)
[2020-08-12 11:36] LABS: APTT 28.4 Seconds (24.5-32.8); FIBRINOGEN 380.4 mg/dL (210-360); INR 1.1; PROTIME 11.2 Seconds (9.3-11.4)
--- NOTE | 2020-08-12 15:06 | NUR ---
chart review. tania cont remain with vent support, trach, and has nutritional support, j tube. cm tried calling nickolas and no answer. will cont following as needed for dc needs.
--- NOTE | 2020-08-12 19:51 | NUR ---
assumed care of pt at 0700, pt is a GCS of 9 mostly. cont on a vent with versed, propofol and dilaudid for management. pt had a fever in the morning and tylenol administered. pt rcvd plateletes today. family member visited pt and was updated.
[2020-08-13] VITALS (61 sets, daily range): BP systolic 102–159; BP diastolic 57–101
[2020-08-13 04:32] LABS: HEMATOCRIT 23.8 % (37.0-47.0); MCH 29.9 pg (26.0-34.0); MCHC 33.6 g/dL (28.0-37.0); MCV 88.9 fL (80.0-100.0); RBC 2.68 mil/uL (4.20-5.00); RDW 18.4 % (10.5-14.5)
[2020-08-13 04:38] LABS: CALCIUM 8.6 mg/dL (8.5-10.1); CREATININE 0.4 mg/dL (0.6-1.0)
[2020-08-13 04:41] LABS: POTASSIUM 2.6 mmol/L (3.5-5.1)
--- NOTE | 2020-08-13 06:14 | NUR ---
Nurse changed poon catheter tubing and bag as there was a leak in the other bag.
--- NOTE | 2020-08-13 06:16 | NUR ---
Patient not progressing towards plan of care as evidenced by inability to decrease sedation as patient respiratory rate increases to upper 20's, heart rate becomes more tachy in the 120's, and she has an almost continuous cough. She remains on cardene gtt to keep sbp 120-140 mmhg.
--- NOTE | 2020-08-13 11:08 | NUR ---
ASSUMED CARE @ 0700 08/13/20, PT ASSESSMENTS AND VSS COMPLETE PER ICU PROTOCOL. DR ZAMORA @ BEDSIDE @ 1030, UPDATE ON PT STATUS GIVEN, ALSO INFORMED ABOUT 5150ML UO OUT IN 24 HRS, NO NEW ORDERS RECIEVED AT THIS TIME. DR KAMINSKI AT BEDSIDE @ 1050, INFORMED ABOUT HIGH OUTPUT 380ML IN 24HR FROM CINDY DRAIN AND THE TRACH SITE, DR KAMINSKI CLEANS SITE WITH GAUZE AND PLACE GAUZE AGAINST THE TRACH SITE. DR STONE @ [facility] @ 2481, RN INFORMS ABOUT UO , ORDERS TO COME.
[2020-08-13 18:10] LABS: HEMOGLOBIN 7.9 gm/dL (12.0-15.0)
[2020-08-13 18:23] LABS: CALCIUM 8.3 mg/dL (8.5-10.1); CREATININE 0.4 mg/dL (0.6-1.0)
[2020-08-14] VITALS (62 sets, daily range): BP systolic 88–144; BP diastolic 52–91
[2020-08-14 05:05] LABS: HEMATOCRIT 20.5 % (37.0-47.0); HEMOGLOBIN 7.2 gm/dL (12.0-15.0); MCHC 35.3 g/dL (28.0-37.0); MCV 90.5 fL (80.0-100.0); RBC 2.27 mil/uL (4.20-5.00); RDW 19.4 % (10.5-14.5); WBC 8.7 thou/uL (4.0-11.0)
[2020-08-14 06:16] LABS: ALBUMIN 2.6 g/dL (3.4-5.0); CALCIUM 7.4 mg/dL (8.5-10.1); CREATININE 0.3 mg/dL (0.6-1.0); DIRECT BILIRUBIN 0.4 mg/dL (<0.1-0.2); MAGNESIUM 1.6 mg/dL (1.8-2.4); PHOSPHORUS 2.4 mg/dL (2.5-4.9); POTASSIUM 3.4 mmol/L (3.5-5.1); TOTAL BILIRUBIN 1.4 mg/dL (0.2-1.0); TOTAL PROTEIN 4.8 g/dL (6.4-8.2)
--- NOTE | 2020-08-14 07:00 | NUR ---
Patient not progressing towards plan of as evidenced by continued low grade temperatures, dark output from NG tube, tachycardia, hypertension with cardene gtt in place, tachypnia, with slight sedation vacation. She is tearful at times, nurse communicated with her the importance of nodding yes/no to simple questions. After this conversation, she would nod yes/no seemingly appropriate to simple questions.
[2020-08-14 18:20] LABS: MAGNESIUM 2.2 mg/dL (1.8-2.4)
[2020-08-14 18:32] LABS: POTASSIUM 4.4 mmol/L (3.5-5.1)
--- NOTE | 2020-08-14 19:40 | NUR ---
PT REMAINS TRACHED ON THE VENTILATOR TODAY. DR. CARMONA WITH NEUROLOGY ROUNDED WHILE PT'S FIANCE WAS HERE AND REQUESTED THAT RN TURN PROPOFOL OFF WHILE FIANCE WAS PRESENT. PROPOFOL WAS SLOWLY TURNED OFF AND PT BEGAN TO BECOME TACHYCARDIC AND TACHYPENIC. PT BEGAN FACIAL GRIMMACING AND LOOKED FEARFUL. HR WENT FROM 80'S TO 130'S. DR. CHIU WAS MADE AWARE AND SHE STATED TO TURN THE PROPOFOL BACK ON AT A VERY LOW DOSE. RN DID SO AND HEART RATE CONTINUED TO CLIMB TO THE 160'S, PHYSICIAN LEFT AND RN TURNED PROPOFOL BACK ON TO PREVIOUS DOSE. PT'S FIANCE STATED HE WAS UPSET THAT IT WAS TURNED OFF AND THAT HE DOES NOT LIKE TO SEE HER HR GO UP AND LOOK ANXIOUS. PT'S HR SLOWLY STARTED TO LOWER AND AFTER 1 HOUR WAS BACK IN THE 80'S. PT IS ABLE TO OPEN EYES AND NOD HEAD WHILE ON SEDATION MEDICATION.
[2020-08-15] VITALS (59 sets, daily range): BP systolic 96–170; BP diastolic 55–105
[2020-08-15 03:31] LABS: HEMATOCRIT 21.8 % (37.0-47.0); HEMOGLOBIN 7.1 gm/dL (12.0-15.0); MCH 29.4 pg (26.0-34.0); MCHC 32.7 g/dL (28.0-37.0); MCV 89.9 fL (80.0-100.0); RBC 2.43 mil/uL (4.20-5.00); RDW 18.4 % (10.5-14.5); WBC 9.1 thou/uL (4.0-11.0)
[2020-08-15 03:37] LABS: CALCIUM 8.3 mg/dL (8.5-10.1); CREATININE 0.4 mg/dL (0.6-1.0); POTASSIUM 4.7 mmol/L (3.5-5.1)
--- NOTE | 2020-08-15 05:02 | NUR ---
ASSESSMENT DOCUMENTED.PT REMAINS ON VENT.ON DILAUDID,PROPOFOL AND VERSED FOR VENT MANAGEMENT.PT BECOMES TACHYCARDIAC AND TACHYPNEIC WHENEVER SEDATION IS TITRATED DOWN.PT AT TIMES NODS TO SIMPLE QUESTIONS.OPENS EYES SPONTANEOUSLY.PT AFEBRILE.UO IN LARGE AMOUNT.IVF INFUSING.TOLERATES TURNING AND REPOSITIONING.MILD BLEEDING TO TRACH SITE.DRESSING CHANGED BY RT.CINDY DRAIN IN PLACE,DD SEROSANGUINOUS FLUID.HAS NG TUBE IN PLACE.NO S/SX OF PAIN NOTED.POC IS TO CONT WITH CURRENT POC.WILL CONT TO MONITOR.
[2020-08-15 10:13] LABS: BE(vivo) 2.7 mmol/L (-2 to +3); HCO3 27.2 mmol/L (22.0-26.0); PCO2 41.5 mmHg (35.0-45.0); PO2 151.4 mmHg (80.0-100.0); pH 7.434 (7.360-7.450)
--- NOTE | 2020-08-15 18:27 | NUR ---
PT INTUBATED AND SEDATED. VENT SETTINGS CHANGED TO 30% FIO2. SEDATION VACATION THIS AM, PT BECOMES TACHYPNEIC 30'S AND TACHYCARDIC 110'S. NO CPAP TODAY. LOW GRADE FEVER 100.1, NO BM, POLYUREA. J-TUBE IN PLACE CLAMPED WITH GREEN DRAINAGE AROUND SITE, PROVIDER AWARE. CINDY DRAIN INTACT WITH SEROSANG DRAINAGE. NGT TO LIS WITH DARK GREEN DRAINAGE. HEMOGLOBIN STABLE AT 7.1. BLOOD GLUCOSE UNDER CONTROL WITH SSI. GENERALIZED EDEMA. PT AND SO HAVE BEEN UPDATED AND EDUCATED ON PT CONDITION AND POC. PT SLOWLY PROGRESSING TOWARDS POC.
[2020-08-16] VITALS (63 sets, daily range): BP systolic 103–179; BP diastolic 64–117
--- NOTE | 2020-08-16 03:21 | NUR ---
>>>1900 BEDSIDE SHIFT REPORT RECEIVED, CARE ASSUMED. >>>2000 ASSESSMENTS DONE DOCUMENTED, SEDATION VACATION DONE, PT AWAKE, FOLLOWS COMMANDS. DENIES PAIN OR DISCOMFORT. DR KAMINSKI ROUNDING ON PT. ORDER TO START TUBE FEEDING GIVEN. JECITY 1.5 JEISON STARTED AT 10ML/HR, TO BE TITRATED PER DIETARY PROTOCOL. >>>0030 PT TOLERATING TUBE FEEDING. NO COMPLICATIONS NOTED. NO RESPIRATORY DISTRESS NOTED. TRACHEOSTOMY TUBE INTACT, CONTINUES ON VENT SETTINGS DOCUMENTED IN ASSESSMENTS. WILL CONTINUE TO MONITOR.
[2020-08-16 06:22] LABS: ALBUMIN 2.5 g/dL (3.4-5.0); CALCIUM 8.1 mg/dL (8.5-10.1); CREATININE 0.3 mg/dL (0.6-1.0); MAGNESIUM 1.8 mg/dL (1.8-2.4); PHOSPHORUS 3.7 mg/dL (2.5-4.9); POTASSIUM 3.8 mmol/L (3.5-5.1); TOTAL BILIRUBIN 0.9 mg/dL (0.2-1.0); TOTAL PROTEIN 5.2 g/dL (6.4-8.2)
--- NOTE | 2020-08-16 09:54 | NUR ---
DR. MALCOLM ROUNDED AT 0915 AND SAID TO TRY TIRTRATING DOWN ON THE PROPOFOL DUE TO [facility]'S NOT ACCEPTING PATIENTS ON PROPOFOL. DR. CAVANAUGH ROUNDED AT 0954 HE SAID HE DOES NOT WANT THE TUBE FEED TO GO OVER 45. IF DIETARY WANTS HER TO HAVE MORE CALORIES THEY NEED TO INCREASE CONSENTRATION. DR. KAMINSKI ROUNDED AT 0800 HE WAS GOING TO REACH OUT TO THE PATIENTS SIGNIFICANT OTHER AND GO OVER THE PATHOLOGY REPORT.
--- NOTE | 2020-08-16 10:44 | NUR ---
Rec vital AF 1.2 to reach goal rate of 45ml/hr. Start to taper off tpn as tube feed tolerance becomes demonstrated.
[2020-08-16 13:37] LABS: HEMATOCRIT 24.4 % (37.0-47.0); HEMOGLOBIN 8.2 gm/dL (12.0-15.0); MCH 29.6 pg (26.0-34.0); MCHC 33.4 g/dL (28.0-37.0); MCV 88.7 fL (80.0-100.0); RBC 2.76 mil/uL (4.20-5.00); RDW 19.3 % (10.5-14.5); WBC 10.4 thou/uL (4.0-11.0)
--- NOTE | 2020-08-16 18:06 | NUR ---
chart review, trach with vent support. try to wean down on iv drips to be able to go to [facility]. spoke with sig other nickolas, did not get to come today since had to work late, hopefully in week her mom will have pass port then another 2 weeks after she gets it. might be month before her mom and sister can get here"/per nickolas. will cont following as needed for dc needs.
[2020-08-17] VITALS (41 sets, daily range): BP systolic 111–161; BP diastolic 66–101
--- NOTE | 2020-08-17 06:32 | NUR ---
ASSUMED PT CARE AT 1900. VSS. PT AWAKE, SEDATTION VACATION FOR 20 MINUTES, PT NODS APPROPRIATELY, RN UPDATED PT ON CURRENT STATUS. PT UNABLE TO MOVE EXTREMITIES ON COMMAND BUT SHE MOVES THEM WHEN SHE COUGHS. PT HAD A DECENT NIGHT, RESTED WELL. GREAT U/O OF 2175MLS THIS SHIFT. PT IS STABLE, PROPOFOL DOWN TO 25MCG, FREQUENT LIQUID STOOLS NOTED WITH COUGHING, FMS PLACED, PT IS STABLE WILL CONTINUE TO MONITOR PER POC.
--- NOTE | 2020-08-17 10:20 | NUR ---
SPOKE WITH PATIENT'S , TERESA AND UPDATED HIM ON THE PATIENT'S STATUS.
--- NOTE | 2020-08-17 11:00 | NUR ---
cm passed on message to hospitalist to start conversation with sig other rt [facility]. cm will cont following as needed for dc needs.
--- NOTE | 2020-08-17 13:14 | NUR ---
DR CAVANAUGH IN TO SEE PATIENT. SEDATION TAPPERED. MONITOR ST IN THE 130 WITH AGGITATION. WILL CONTINUE TO MONITOR.
--- NOTE | 2020-08-17 14:15 | NUR ---
PATIENT PLACED ON SEDATION VACATION FOR APPROXIMATELY 20 MINS. HEART RATE UP TO 130 TO 150 RANGE AND RESP RATE UP TO 30. BP UP. O2 SAT IN THE UPPER 90'S. PATIENT APPEARS UNCOMFORTABLE.
--- NOTE | 2020-08-17 16:42 | NUR ---
CALLED KEYING MACHINE OPERATOR SHEERY AT PT'S INSURANCE PER REQUEST TO DISCUSS DC PLANNING. DC PLAN IS LTACH FOR VENT WEANING. PT STILL REQUIRES SEDATION GTTS FOR OXYGENATION AND HEMODYNAMICS. WILL REACH OUT TO EXPLOSIVE OPERATOR BOMB AND HOSPITALIST TO DISCUSS TIMELINE FOR LTACH TRANSITION.
--- NOTE | 2020-08-17 17:06 | PATH ---
[facility] [address] [place] [address] PATHOLOGY RPT PROCEDURE Name: ALY JUSTICE Room #: 246-P ADM IN M.R.#: [id number] Admission: 07/09/20 Date of : 83 Discharge: Report #: [id number] Path Case #: [id number] [facility] Accession Number: [id number] . 01 Material submitted: . stomach - PORTION OF STOMACH . 01 Clinical history: . GASTRIC CANCER, RESPIRATORY FAILURE, PE, ACIDOSIS, PUI . 02 Diagnosis: Stomach, portion of stomach, laparoscopic gastric resection: - DIFFUSELY INVASIVE POORLY DIFFERENTIATED ADENOCARCINOMA WITH ABDUNDANT SIGNET RING CELL FEATURES. - TUMOR PRESENT AT VISCERAL SEROSA. - EXTENSIVE PERINEURAL INVASION PRESENT. - TUMOR IDENTIFIED WITH SIGNIFICANT CAUTERY ALONG SOFT TISSUE AT STAPLED MARGIN. - TWO LYMPH NODES SHOWING METASTATIC ADENOCARCINOMA OF EIGHT EXAMINED (2/8). . . SURGICAL PATHOLOGY CANCER CASE SUMMARY . Protocol Posting Date: October 2019 . STOMACH . Procedure: ___ Partial gastrectomy . Tumor Site: ___ Pylorus . Tumor Size: ___ At least 5.1 cm grossly . Histologic Type: ___ Adenocarcinoma, diffuse type (includes signet-ring carcinoma, classified as greater than 50% signet-ring cells along with focal intestinal type . Histologic Grade: ___ G3, poorly differentiated Tumor Extension: ___ Tumor invades serosa (visceral peritoneum) . Margins: All mucosal margins are uninvolved by invasive carcinoma and dysplasia [facility] [address] [place] [address] PATHOLOGY RPT PROCEDURE Name: ALY JUSTICE Room #: 246-P ADM IN M.R.#: [id number] Admission: 07/09/20 Date of : 83 Discharge: Report #: [id number] Path Case #: [id number] Margins examined: Specimen received previously opened and unoriented Omental margin (radial margin): Uninvolved by invasive carcinoma Other margin: Involved by invasive carcinoma at soft tissue noted associated with cautery at the stapled margin . Treatment Effect: ___ No known presurgical therapy . Lymphovascular Space Invasion: ___ Present . Perineural Invasion: ___ Present . Regional Lymph Nodes: Number of lymph nodes involved: 2 Number of lymph nodes examined: 8 . TNM Descriptors: Primary Tumor (pT): pT4a, tumor invades serosa (visceral peritoneum) Regional lymph nodes (pN): pN1, metastases in one or two regional lymph nodes . Ancillary Studies: __ MSI instability markers and HER-2/vega marker performed on the specimen ID [id number], please see separate report. . (IUV:thien; 08/12/2020) QMS 08/15/2020 1023 Local . 02 Comment: Properly controlled AE1/AE3 immunohistochemical stain is performed on blocks A14 and A15 due to the presence of extensive hemorrhage in the node submitted in block A14 and marked cautery in one of the lymph nodes submitted in A15. There are no tumor cells identified within either of these lymph nodes examined. Of the lymph nodes involved by metastatic carcinoma, one lymph node is identified within the soft tissue with tumor associated with cautery at the margin. Another minute lymph node shows tumor by direct extension and focal lymphovascular invasion. (IUV:thien; 08/12/2020) . 02 Addendum: . The specimen is dissected subsequent to a conversation with Dr. Arreola. The fat is further examined revealing 5 lymph nodes and 2 probable lymph node candidates which are entirely submitted as follows: . A18: One lymph node, serially sectioned [address] [address] PATHOLOGY RPT PROCEDURE Name: ALY JUSTICE Room #: 246-P [facility] IN M.R.#: [id number] Admission: 07/09/20 Date of : 83 Discharge: Report #: [id number] Path Case #: [id number] A19: 2 bisected lymph nodes, one black A20: 2 intact lymph nodes A21: 2 intact lymph node candidates (SDY; 08/15/20) . The examination of the additional lymph nodes showed a one mm focus of metastatic carcinoma of the total of seven examined. This updates the total number of positive or involved lymph nodes to three out of fifteen sampled(3/15). The p(N) status is updated based on this to p(N2) instead of p(N1). . It was also explained by Dr. Arreola that the margin with tumor at cautery might represent the perigastric tissue adjacent to the pancreatic tissue. There is no pancreatic tissue present within the specimen. The mucosal margins are free of malignancy. The same was discussed with Dr. Arreola and later with Dr. Guajardo in the afternoon of 08/16/2020. Based on the discussion with Dr. Guajardo a CDX2, ER and DE are ordered. These will be resulted in an addendum to follow. . ADDENDUM DIAGNOSIS: THREE LYMPH NODES WITH METASTATIC CARCINOMA OF TOTAL OF 15 (3/15); pN2. (IUV:pipeline operator; 08/15/2020) MBR/08/15/2020 Addendum Electronically Signed by Nancy Kelly MD, Pathologist Addendum #2: This addendum is issued subsequent to reviewing properly controlled ER, DE, and CDX-2 performed on block A8 at the request of Dr. Estuardo Guajardo, oncologist. ER and DE are nonreactive within the tumor cells (0 reactivity; negative). CDX-2 is reactive within the poorly differentiated adenocarcinoma supporting gastrointestinal origin for this malignancy. . The originally rendered diagnoses as well as interpretation remain unchanged. (IUV:pit 08/17/2020) . Professional services performed by [employer] at [facility], [address] [place] [address] , [place] [address]. Technical services performed by [employer] at [address] [place] [address], [address], [place] [address]. S/08/17/2020 Addendum Electronically Signed by Nancy Kelly MD, Pathologist . 02 Electronically signed: . Nancy Kelly MD, Pathologist NPI- [id number] . 01 Gross description: . The specimen is received in formalin, labeled "Aly Justice, portion of [facility] [address] [place] [address] PATHOLOGY RPT PROCEDURE Name: ALY JUSTICE Room #: [facility]-P ADM IN M.R.#: [id number] Admission: 07/09/20 Date of : 83 Discharge: Report #: [id number] Path Case #: [id number] stomach". Received is a previously opened partial gastrectomy specimen measuring 25.5 cm in length and ranges in diameter from 2.5 to 5.9 cm. The attached perigastric fat measures 11.5 x 7.2 cm. There is a large amount of attached omentum measuring 22.2 x 21.3 x 1.1 cm. The serosal surface of the stomach is pink-langley and smooth in appearance with moderate vasculature. Near one stapled margin, there is a pink-langley, roughened area measuring 3.5 x 2.3 cm. This area is inked red. Further opening of the specimen reveals a circumferential light brown polypoid-appearing mass measuring 5.1 x 4.0 cm, which grossly approaches the stapled margin. The agnes are removed and the new margin is inked black. The serosal surface of the opposing the mass is inked blue. Sectioning reveals the mass to grossly extend through the muscularis externa, and grossly abuts the aforementioned roughened area (red ink), and serosa (blue ink). The remainder of the mucosa is light brown, cerebriform to inflamed in appearance. Approximately 70% of the rugae are pronounced. No additional nodules or lesions are noted grossly. Attached to the perigastric fat, there is a red-brown nodule identified measuring 0.8 x 0.8 x 0.6 cm area sectioning reveals red-brown cut surfaces. Sectioning through the attached perigastric fat reveals two possible lymph nodes measuring 0.3 cm each. Sectioning through the attached omentum reveals bright yellow, lobulated cut surfaces with no grossly distinct nodules or lesions. The perigastric fat is placed into a lymph node enhancement solution. The specimen is submitted representatively as follows: . A1-A2 stapled margin immediately adjacent to mass (black ink), en face A3-A7 entire roughened area (red ink) near stapled margin to show relationship with tumor A8-A10 additional abrasives sales representative sections of mass A11-A13 abrasives sales representative cross-sections of uninvolved mucosa submitted from each third of specimen A14 red-brown nodule attached perigastric fat, bisected A15 intact possible lymph nodes A16 abrasives sales representative sections of omentum. . After exposure to a lymph node enhancement solution, further dissection and palpation of the perigastric fat reveals no additional lymph nodes identified. (CAA; 08/11/2020) . After initial microscopic examination, abrasives sales representative sections of the shaved omental margin are submitted in cassette A17. (CAA; 08/12/2020) QA/[facility] 08/12/2020 1247 Local . 02 Pathologist provided ICD-10: C16.9 . 02 CPT . [address] [address] PATHOLOGY RPT PROCEDURE Name: ALY JUSTICE Room #: 246-P ADM IN M.R.#: [id number] Admission: 07/09/20 Date of : 83 Discharge: Report #: [id number] Path Case #: [id number], [id number] Specimen Comment: A courtesy copy of this report has been sent to [phone], [phone] Specimen Comment: [phone] Specimen Comment: Report sent to ,DR RAMON / DR BINGHAM Performed at: [address] [facility], [place] [id number] MD Timbo Castillo MD Phone: [phone] Performed at: [address] [facility] [id number] MD Nancy Kelly MD Phone: [phone]
--- NOTE | 2020-08-17 18:00 | NUR ---
PATIENT IS PROGRESSING TOWARDS OUTCOME GOALS SLOWLY, NGT REMAINS CLAMPED, NO EMESIS WITH COUGHING. MONITOR ST WITH AGGITATION INTO THE 120 TO 130 RANGE. TOLERATING TUBE FEEDINGS. TPN RATE DECREASED TO 40 TO DC LATER TONIGHT. URINE OUTPUT ADEQUATE. O2 SAT 98 TO 100%.
[2020-08-18] VITALS (40 sets, daily range): BP systolic 105–146; BP diastolic 64–95
--- NOTE | 2020-08-18 09:05 | NUR ---
Nutrition: REC Vital AF to reach 55 mL/hr with current sedation demands. If propofol is discontinued, rec 65 mL/hr goal
--- NOTE | 2020-08-18 09:47 | NUR ---
cm called mr raymundo olmos via phone call, education on [facility], and location. [facility]. nickolas stated " oh lord those are far and oh lord moving today"/nickolas. cm re-education that tania is not dc today, just need to send out referral so when she is stable will be ready. will need insurance auth. " [facility] because it is not that far away"/nickolas. will cont following as needed for dc needs. referral sent to [facility].
[2020-08-18 14:25] LABS: HEMATOCRIT 22.9 % (37.0-47.0); HEMOGLOBIN 7.5 gm/dL (12.0-15.0); MCH 29.3 pg (26.0-34.0); MCHC 32.7 g/dL (28.0-37.0); MCV 89.7 fL (80.0-100.0); RBC 2.55 mil/uL (4.20-5.00); RDW 18.8 % (10.5-14.5); WBC 8.5 thou/uL (4.0-11.0)
[2020-08-18 14:36] LABS: ALBUMIN 3.3 g/dL (3.4-5.0); CALCIUM 8.6 mg/dL (8.5-10.1); CREATININE 0.5 mg/dL (0.6-1.0); PHOSPHORUS 3.1 mg/dL (2.5-4.9)
[2020-08-18 14:38] LABS: POTASSIUM 2.8 mmol/L (3.5-5.1)
--- NOTE | 2020-08-18 17:25 | NUR ---
Able to titrate down sedation slowly throughout the day. Versed from 5 to 2.5, Propofol from 25 to 15 and dilaudid from 2 to off. Patient much more alert this afternoon when samantha visited. HR did go up into the 130's and patient was tachypneic at times in the 40's but was able to settle down after awhile. Slow taper of seditives seems to be working better than abrupt discontinuation. Patient is tolerating tube feeds. Dr. Arreola concerned about increasing the rate too high but is okay with 55 ml/hr at this time. Stooling with good bowel sounds. Low grade temp all day. See documentation on interventions for assessment details. Patient is progressing towards plan of care. Samantha was here for about 30 minutes around [phone]. Updated on plan of care. He felt like he really got to communicate with her today.
--- NOTE | 2020-08-18 21:53 | NUR ---
Nurse informed Dr. Yuen of patients febrile state and updated him on patient status and plan of care. Physician expressed to reculture urine, blood, and sputum. This is to be done. Room cooled off and blanket removed
--- NOTE | 2020-08-18 21:56 | NUR ---
2151- nurse talked with PET AMBASSADOR in regards to patients new potassium level. She expressed to follow protocol and not give the potassium as scheduled.
[2020-08-19] VITALS (28 sets, daily range): BP systolic 108–160; BP diastolic 76–101
[2020-08-19 00:01] LABS: URINE BILIRUBIN NEGATIVE (Negative); URINE BLOOD TRACE (Negative); URINE CLARITY CLEAR; URINE COLOR YELLOW; URINE GLUCOSE-RANDOM* NEGATIVE (Negative); URINE KETONES NEGATIVE (Negative); URINE LEUKOCYTES-REFLEX NEGATIVE (Negative); URINE NITRITE-REFLEX NEGATIVE (Negative); URINE PROTEIN (DIPSTICK) TRACE (Negative)
[2020-08-19 00:42] LABS: CASTS None Seen /LPF (None Seen); MUCUS None Seen strn/LPF (None Seen); SQUAMOUS None Seen /LPF (0-3); URINE RBC 3-10 Few /HPF (0-2); URINE WBC-REFLEX 6-15 Few /HPF (0-5)
[2020-08-19 00:43] LABS: BACTERIA-REFLEX None Seen /HPF (None Seen); CRYSTALS None Seen /LPF (None Seen); YEAST-REFLEX Present (None Seen)
[2020-08-19 03:41] LABS: BE(vivo) 12.3 mmol/L (-2 to +3); HCO3 37.6 mmol/L (22.0-26.0); PCO2 53.4 mmHg (35.0-45.0); PO2 99.4 mmHg (80.0-100.0); pH 7.465 (7.360-7.450); sO2 97.7 % (92.0-98.0)
[2020-08-19 05:37] LABS: ABSOLUTE NEUTROPHILS 5.7 thou/uL (1.4-8.2); BASOPHILS 0.1 % (0.0-2.0); EOSINOPHILS 0.8 % (0.0-3.0); HEMATOCRIT 23.2 % (37.0-47.0); HEMOGLOBIN 7.4 gm/dL (12.0-15.0); LYMPHOCYTES 17.8 % (24.0-44.0); MCH 28.8 pg (26.0-34.0); MCHC 31.9 g/dL (28.0-37.0); MCV 90.3 fL (80.0-100.0); MONOCYTES 10.2 % (1.0-8.0); PLATELET COUNT 245 thou/uL (150-400); POLYS 71.1 % (36.0-66.0); RBC 2.57 mil/uL (4.20-5.00); RDW 19.5 % (10.5-14.5)
[2020-08-19 06:49] LABS: ALBUMIN 3.1 g/dL (3.4-5.0); CALCIUM 8.6 mg/dL (8.5-10.1); CREATININE 0.3 mg/dL (0.6-1.0); POTASSIUM 3.9 mmol/L (3.5-5.1); TOTAL BILIRUBIN 1.2 mg/dL (0.2-1.0); TOTAL PROTEIN 5.8 g/dL (6.4-8.2)
--- NOTE | 2020-08-19 07:53 | NUR ---
Patient progressing towards plan of care as evidenced by decreasing requirements of sedation, more interactive periods, she is moving her arms at will, and she has a strong cough to clear her secretions. On the down side, she had a fever last night and therefore was pedraza cultured. Plan of care is to continue to monitor vital signs q1 hour, assessments q1 hour, increase interactions, and wean completely off sedation.
--- NOTE | 2020-08-19 14:20 | NUR ---
cm called [facility] to see if they will be able to take her over the weekend per liajoey sotelo stated " no we are full, we have no vent and her insurance wonki. don't do weekend admit."per ashleigh. cm called left message from nickolas to call back about to have send [facility] referral to [facility]. will need insurance auth. no anticipated dc over the weekend. cm faxed referral to [facility].
--- NOTE | 2020-08-19 15:07 | NUR ---
[facility] can medically accept for [facility], will need insurance auth. no anticpated dc over the weekend. cm updated nickolas on needing to look at [facility] or [facility] unable to accept. will cont following as needed for dc needs.
--- NOTE | 2020-08-19 19:42 | NUR ---
CPAP TRIAL TIRED. MINUTE VENTILATION WAS LOW. PT WAS NEITHER TACHYCARDIC AND NOR TACHYPNEIC. PT TOLERATED CPAP WELL. CPAP PERFOMANCE REPORTED TO DR MALCOLM BY RT ARRIOLA. CONTINUE TO MONITOR.
--- NOTE | 2020-08-19 21:12 | NUR ---
>>>1900 BEDSIDE SHIFT REPORT RECEIVED, CARE ASSUMED, PT IS AWAKE AND ALERT. DENIES PAIN OR DISCOMFORT. REPOSITIONED IN BED. >>>2029 ASESSEMENTS DONE DOCUMENTED. SEDATION VACATION DONE. TOLERATED WELL WITHOUT COMPLICATIONS. FOLLOWING COMMANDS. NODS TO Y/N QUESTIONS AND MOUTHS WORDS. SEDATION MEDS TITRATED PER PROTOCOL. WILL CONTINUE TO MONITOR.
[2020-08-20] VITALS (25 sets, daily range): BP systolic 125–157; BP diastolic 78–104
[2020-08-20 04:39] LABS: HEMATOCRIT 24.8 % (37.0-47.0); MCH 28.8 pg (26.0-34.0); MCHC 32.1 g/dL (28.0-37.0); MCV 89.8 fL (80.0-100.0); RBC 2.76 mil/uL (4.20-5.00); RDW 19.5 % (10.5-14.5); WBC 9.3 thou/uL (4.0-11.0)
[2020-08-20 04:49] LABS: CALCIUM 8.8 mg/dL (8.5-10.1); CREATININE 0.5 mg/dL (0.6-1.0); POTASSIUM 3.9 mmol/L (3.5-5.1)
[2020-08-20 08:22] LABS: PHOSPHORUS 4.5 mg/dL (2.5-4.9)
[2020-08-20 12:50] LABS: BE(vivo) 8.3 mmol/L (-2 to +3); HCO3 32.6 mmol/L (22.0-26.0); PCO2 44.6 mmHg (35.0-45.0); PO2 96.9 mmHg (80.0-100.0); pH 7.482 (7.360-7.450); sO2 97.7 % (92.0-98.0)
[2020-08-21] VITALS (25 sets, daily range): BP systolic 129–188; BP diastolic 81–120
[2020-08-21 05:27] LABS: BE(vivo) 9.4 mmol/L (-2 to +3); HCO3 34.1 mmol/L (22.0-26.0); PO2 110.1 mmHg (80.0-100.0); pH 7.478 (7.360-7.450); sO2 98.3 % (92.0-98.0)
[2020-08-21 06:28] LABS: ABSOLUTE NEUTROPHILS 7.7 thou/uL (1.4-8.2); BASOPHILS 0.3 % (0.0-2.0); EOSINOPHILS 1.1 % (0.0-3.0); HEMATOCRIT 25.3 % (37.0-47.0); HEMOGLOBIN 8.3 gm/dL (12.0-15.0); LYMPHOCYTES 15.3 % (24.0-44.0); MCH 28.9 pg (26.0-34.0); MCHC 32.8 g/dL (28.0-37.0); MCV 88.2 fL (80.0-100.0); MONOCYTES 6.4 % (1.0-8.0); PLATELET COUNT 261 thou/uL (150-400); POLYS 76.9 % (36.0-66.0); RBC 2.87 mil/uL (4.20-5.00); RDW 18.7 % (10.5-14.5)
[2020-08-21 06:40] LABS: ALBUMIN 3.1 g/dL (3.4-5.0); CALCIUM 8.8 mg/dL (8.5-10.1); CREATININE 0.4 mg/dL (0.6-1.0); MAGNESIUM 1.8 mg/dL (1.8-2.4); PHOSPHORUS 3.2 mg/dL (2.5-4.9); POTASSIUM 3.2 mmol/L (3.5-5.1); TOTAL BILIRUBIN 1.4 mg/dL (0.2-1.0); TOTAL PROTEIN 6.2 g/dL (6.4-8.2)
--- NOTE | 2020-08-21 06:56 | NUR ---
ASSUMED PATIENT CARE AT 1845. PATIENT IS FEBRILE WITH TEMPS SPIKING IN LOW 100'S. PATIENT RESPONDS APPROPRIATELY TO STIMULI AND APPEARS TO BE MOSTLY INTACT NEUROLOGICALLY. LIGHT SEDATION PROVIDED WITH GOOD AFFECT. BREATHING STABLE ON VENTILATOR EVIDENCED BY ASSESSMENTS AND CONTINUOUS SATURATION MONITORING. GOOD COUGH EFFORT. TUBE FEEDS TOLERATED WITH NO RESIDUAL. GREAT OUTPUT THROUGH YUEN CATHETER. CONTINUE PLAN OF CARE.
[2020-08-21 07:34] LABS: INR 1.1; PROTIME 11.6 Seconds (9.3-11.4)
[2020-08-22] VITALS (26 sets, daily range): BP systolic 128–157; BP diastolic 83–109
[2020-08-22 05:00] LABS: ABSOLUTE NEUTROPHILS 7.9 thou/uL (1.4-8.2); BASOPHILS 0.4 % (0.0-2.0); EOSINOPHILS 0.5 % (0.0-3.0); HEMATOCRIT 24.4 % (37.0-47.0); HEMOGLOBIN 7.9 gm/dL (12.0-15.0); LYMPHOCYTES 12.7 % (24.0-44.0); MCH 28.7 pg (26.0-34.0); MCHC 32.5 g/dL (28.0-37.0); MCV 88.4 fL (80.0-100.0); MONOCYTES 6.3 % (1.0-8.0); PLATELET COUNT 251 thou/uL (150-400); POLYS 80.1 % (36.0-66.0); RBC 2.77 mil/uL (4.20-5.00); RDW 19.3 % (10.5-14.5); WBC 9.8 thou/uL (4.0-11.0)
[2020-08-22 05:12] LABS: CALCIUM 8.6 mg/dL (8.5-10.1); CREATININE 0.4 mg/dL (0.6-1.0); MAGNESIUM 1.8 mg/dL (1.8-2.4); PHOSPHORUS 3.2 mg/dL (2.5-4.9); POTASSIUM 3.2 mmol/L (3.5-5.1)
--- NOTE | 2020-08-22 05:40 | NUR ---
ASSUMED PT CARE AT 1900. VSS. PT ALERT AWAKE, NODS APPROPIATELY & FOLLOWS COMMANDS. SHE IS ALSO ABLE TO MAKE SIMPLE GESTURES. PT POINTED AT HER ABD AND TRACH HER SOURCE OF PAIN AND COMMUNICATES WHEN SHE NEEDS PAIN MEDS. PT IS RESTING WELL ON BED RIGHT NOW, IV MEROPENEM INFUSING, PT IS SR WUTH HR OF 98, O2 SAT OF 100% BP OF 150/99 MAP OF 116. PT IS STABLE, SHE HAD AN UNEVENTFUL NOC, EXCELLENT U/O, WILL CONTINUE TO MONITOR PER POC, HOWEVER PT IS PROGRESSING WELL TOWARDS POC GOALS.
--- NOTE | 2020-08-22 10:20 | NUR ---
cm checking with hospitalist to see if ready for [facility] to seek for auth for ltac?
--- NOTE | 2020-08-22 13:04 | NUR ---
FAXED CLINICAL UPDATE TO [facility] AND [facility]. RECEIVED CONFIRMATION. DP TO FOLLOW.
--- NOTE | 2020-08-22 19:45 | NUR ---
PT SLOWLY PROGRESSING, LOW GRADE TEMPERATURES. HAD EMESIS X 2 OF TH[address] BILE SECRETIONS. DR[address] SEAMAN NOTIFIED WHEN SHE ROUNDED. WATER BOLUES 100CC Q 4 HRS THROUGH J TUBE. EMESIS RESOLVED. SURGICAL MD ROUNDED. DR. KEE ROUNDED. ROBBIE, PT'S SIGNIFICANT OTHER CALLED TO CHECK ON PT. UPDATED INCLUDING EMESIS X 2 AND LOW GRADE TEMP, OTHERWISE SHE IS SLOWLY PROGESSING. PT REMAINED ON CPAP, WELL TOLERATED.
[2020-08-23] VITALS (31 sets, daily range): BP systolic 121–153; BP diastolic 75–101
--- NOTE | 2020-08-23 06:00 | NUR ---
PT AWAKE AND ALERT. LOOKS TERRIFIC! NEURO INTACT. KELVIN TUBE FEEDINGS TEMP 99 PO SINUS RHYTHM TO SINUS TACH PROGRESSING TOWARD GOALS.
[2020-08-23 06:32] LABS: CALCIUM 9.1 mg/dL (8.5-10.1); CREATININE 0.4 mg/dL (0.6-1.0); POTASSIUM 3.9 mmol/L (3.5-5.1)
[2020-08-23 09:21] LABS: HEMATOCRIT 24.4 % (37.0-47.0); HEMOGLOBIN 8.1 gm/dL (12.0-15.0); MCH 29.3 pg (26.0-34.0); MCHC 33.2 g/dL (28.0-37.0); MCV 88.2 fL (80.0-100.0); RBC 2.77 mil/uL (4.20-5.00); RDW 19.1 % (10.5-14.5); WBC 9.7 thou/uL (4.0-11.0)
--- NOTE | 2020-08-23 09:53 | NUR ---
[facility] HAD MEDICATION QUESTION IE IF ON ANY DRIPS, AND THAT SHE DOESNT HAVE DPOA. UPDATES SENT TO [facility]. THEY HAVE ACCEPTED AND SENDING FOR INSURANCE AUTH. NO BEDS TODAY BUT IS ON HIGH PRIORITY AND POSSIBLE WILL HAVE BED TOMORROW. CHART COPY REQUESTED. WILL CONT FOLLOWING NEEDED FOR DC NEEDS.
[2020-08-23] MEDS ORDERED: ARIXTRA7.5 MG/0.6 SUBQ (10:13)
[2020-08-23] MEDS ORDERED: CATAPRES0.1 MG PER TUBE (10:13)
[2020-08-23] MEDS ORDERED: SENNA8.8 MG/5 M PO (10:13)
[2020-08-23] MEDS ORDERED: CATAPRES-TTS 20.2 MG TRANSDERM (10:13)
[2020-08-23] MEDS ORDERED: DIOCTO50 MG/5 ML PER TUBE (10:13)
[2020-08-23] MEDS ORDERED: PREVACID 15 MG15 M4 DISSOLVE (10:13)
[2020-08-23] MEDS ORDERED: OXYCODONE20 MG/1 ML PER TUBE (10:13)
[2020-08-23] MEDS ORDERED: IPRAT-ALBUT 0.5-3 ML INH (10:13)
[2020-08-23] MEDS ORDERED: LANTUS SUBQ (10:19)
[2020-08-23] MEDS ORDERED: CORTEF 20 MG TA20 MG PO (10:22)
[2020-08-23] MEDS ORDERED: POTASSIUM20 MEQ/15 PER TUBE (10:26)
[2020-08-23] MEDS ORDERED: LOPRESSOR5 MG/5 ML IV (10:44)
[2020-08-23] MEDS ORDERED: SOLU-CORTEF100 MG IV (10:50)
--- NOTE | 2020-08-23 15:26 | NUR ---
FAXED CLINICAL UPDATE TO [facility] SPOKE WITH IFEANYI IN ADM SHE RECEIVED UPDATE. DP TO FOLLOW.
--- NOTE | 2020-08-23 16:26 | NUR ---
ASSUMED CARE @ 0700 08/23/20, PT ASSESSMENTS AND VSS COMPLETE PER ICU PROTOCOL. DR SEAMAN HERE THIS AM TO ROUND, DISCHARGE ORDERS IN PLACE, AWAITING A ROOM IN [place]. PT HAD AN UNEVENTFUL DAY.
[2020-08-24] VITALS (31 sets, daily range): BP systolic 118–151; BP diastolic 75–102
--- NOTE | 2020-08-24 04:01 | NUR ---
ASSUMED PT CARE AT 1900. VSS. PT ALERT, FOLLOWS COMANDS, ABLE TO MOUTH WORDS TO COMMUNICATE NEEDS AND FEELINGS. SPOKE TO PT'S SIGNIFICANT OTHER, UPDATED HIM LAST NOC ON PT STATUS. PT RESTED WELL ALL NOC, NO ACUTE EVENTS OVER NOC; T MAX 99.0 THIS SHIFT, WILL CONTINUE TO MONITOR. PT PROGRESSING WELL TOWARDS POC GOALS.
--- NOTE | 2020-08-24 10:21 | NUR ---
Nutrition: REC increase tube feeds to 60 mL/hr now that propofol has D/C'ed.
--- NOTE | 2020-08-24 11:48 | NUR ---
no bed today at [facility] today. call , saturday and over the weekend to see if [facility] has open bed for tania. call [facility] [phone] (kade), then fax dc orders to [phone]. send chart copy and call report to [facility]. set up transport
--- NOTE | 2020-08-24 13:58 | NUR ---
FAXED CLINICAL UPDATE TO [facility] SPOKE WITH IFEANYI IN AMD SHE RECEIVED UPDATE.
--- NOTE | 2020-08-24 19:24 | NUR ---
ASSUMED CARE @ 0700 08/24/20, PT ASSESSMENTS AND VSS COMPLETE PER ICU PRT. DR SEAMAN HERE THIS AM TO ROUND, NO ORDERS RECIEVED. ORDERS PLACED THIS EVENING FOR CCU TRANSFER. ROBBIE MORALES CALLED THIS SHIFT FOR AN UPDATE, CODE VERIFIED AND UPDATE GIVEN. REPORT GIVEN TO BENJIE FERREIRA.
--- NOTE | 2020-08-24 22:38 | NUR ---
Nurse explained to Linh her transfer and how it was going to happen. Nurse transfered her over to CCU via bed with RT and DEVELOPMENT AND PLANNING ENGINEER. She was already on CCU bed. She had her eye glasses and her eye glasses case. She tolerated transfer well. She denied needs upon transfer. CCU RN met ICU staff in room then transfer of report was provided. Call light was in had and nurse explained CCU process to patient. During report to the next RN, information was passed that patients kelsey had called CCU and wanted an update on her status. CCU RN was going to call him back. SPANISH TEACHER did not call him as he knew about the transfer.
[2020-08-25 00:12] VITALS: BP 137/89
[2020-08-25 05:02] VITALS: BP 138/93
[2020-08-25 07:55] VITALS: BP 128/87
[2020-08-25 11:45] VITALS: BP 144/99
[2020-08-25 15:40] VITALS: BP 140/96
[2020-08-25 19:40] VITALS: BP 152/103
--- NOTE | 2020-08-25 19:48 | NUR ---
RECEIVED PT'S CARE AROUND 0735; PT. ON BED; ALERT; DURING AM ASSESSMENT PT. AOX4; C/O ABDOMINAL PAIN; SCHEDULED MEDICATION GIVEN; AM MEDICATION GIVEN; EDUCATED ABOUT TURNING FROM SIDE TO SIDE; ST. UNDERSTANDING; BED BAD GIVEN; PER PHYSICIAN D/C YUEN AND RECTAL TUBE; D/C YUEN AND RECTAL TUBE; ABLE TO VOID 350 ML AFTER D/C YUEN; ST ON THE MONITOR; TEMPERATURE ON THE 99s; CALLED [facility] NO BEDS AVAILABLES; WILL CALL TOMORROW 08/26/20; ST ON THE MONITOR; NO RESIDUAL OVER JTUBE; WATER FLUSHED PERFORMED; TURNED FROM SIDE TO SIDE; ASSESSMENT CHARGED; FOLLOWING POC; PASSED ON REPORT;
--- NOTE | 2020-08-26 04:31 | NUR ---
Assumed pt care at 1900. Pt is alert and oriented. No sign of distress noted in pt Pt verbalizes pain. Pain med administered as scheduled. Assessment completed and documented. Scheduled med administered to pt. No acute events overnight. Continue to monitor pt. No further needs at this time.
[2020-08-26 04:50] VITALS: BP 135/98
[2020-08-26 08:15] VITALS: BP 135/96
--- NOTE | 2020-08-26 09:53 | NUR ---
CM contacted [facility]ason to check on bed status today. She will contact the unit if a bed is available today or tomorrow for this pt. Insurance auth is in place. [employer] form is on the chart for ambulance/vent transport if a bed becomes available. Unit staff to fax orders, arrange transport and call report as well as to confirm with the pt's sign. other.
[2020-08-26 12:15] VITALS: BP 145/97
--- NOTE | 2020-08-26 12:42 | NUR ---
PT DISCHARGING TODAY TO [facility] FAXED DC ORDERS/SUMMARY TO FACILITY SPOKE WITH IFEANYI IN AMD SHE RECEIVED ORDERS. TRANSPORT ARRANGED BY AMBULANCE ([facility]) FOR [phone] TOOAY. NOTIFIED PT'S SIG OTHER (ROBBIE) OF DC AND TIME OF TRANSPORT. UNIT NOTIFIED AND CHART COPY PER US RN TO CALL REPORT TO [phone].
[2020-08-26 12:45] VITALS: BP 145/47
--- NOTE | 2020-08-26 13:41 | NUR ---
RECEIVED PT'S CARE AROUND 0710; PT. ON BED; ALERT; ST ON THE MONITOR; ON VENTILATOR; DURING AM ASSESMENT; PT. RESTING WITH EYES CLOSED; SLEEP INTERRUPTED; AM MEDICATIONS GIVEN; NO INSULIN REPLACEMENT NEEDED; HOLD LANTUS; PHYSICIAN NOTIFIED; ORDERS RECEIVED; PER NAVAL AIR[employer] BED AVAILABLE TO BE TRANSFER TO [place]; TRANSPORTATION ARRANGED AT [phone]; PT. AND SIGNIFICANT OTHER NOTIFIED; ST. UNDERSTANDING; WHILE CALLING FOR REPORT AT 1300 TRANSPORTATION ARRIVED AT FLOOR; PER TRANSPORTATION EARLY TRANSPORTATION REQUESTED; REPORT GIVEN WITHOUT SPECIFIC DATES OF INTERVENTIONS; CHART SENT; REFERED NURSE TO CHART; SR-ST ON THE MONITOR; ABLE TO VOID; ASSESSMENT CHARGED; FOLLOWING POC; PASSED ON REPORT; D/C PAPERS DONE;
== END 2020-08-26 13:30 | DRG 4 ==
LOC: ER 09:44 → ICU 15:04 → 2N 08-24 21:56
PROVIDERS: Emergency Medicine; Hospitalist; Internal Medicine; Internal Medicine Hematology & Oncology; Internal Medicine Pulmonary Disease; Nurse Practitioner; Nurse Practitioner Family; Pediatrics; Specialist; Surgery; ADMIT Internal Medicine; ATTEND Internal Medicine
PROC: 5A1955Z Respiratory Ventilation, Greater than 96 Consecutive Hours (ICD-10-PCS; 2020-07-09)
PROC: 02HV33Z Insertion of Infusion Device into Superior Vena Cava, Percutaneous Approach (ICD-10-PCS; 2020-07-09)
PROC: 0BH17EZ Insertion of Endotracheal Airway into Trachea, Via Natural or Artificial Opening (ICD-10-PCS; 2020-07-09)
PROC: XW13325 Transfusion of Convalescent Plasma (Nonautologous) into Peripheral Vein, Percutaneous Approach, New Technology Group 5 (ICD-10-PCS; 2020-07-10)
PROC: 0DB68ZX Excision of Stomach, Via Natural or Artificial Opening Endoscopic, Diagnostic (ICD-10-PCS; principal; 2020-07-13)
PROC: 06H03DZ Insertion of Intraluminal Device into Inferior Vena Cava, Percutaneous Approach (ICD-10-PCS; 2020-07-15)
PROC: 0DB68ZX Excision of Stomach, Via Natural or Artificial Opening Endoscopic, Diagnostic (ICD-10-PCS; 2020-07-18)
PROC: 30233N1 Transfusion of Nonautologous Red Blood Cells into Peripheral Vein, Percutaneous Approach (ICD-10-PCS; 2020-07-19)
PROC: 0B9C8ZX Drainage of Right Upper Lung Lobe, Via Natural or Artificial Opening Endoscopic, Diagnostic (ICD-10-PCS; 2020-07-21)
PROC: B24BZZ4 Ultrasonography of Heart with Aorta, Transesophageal (ICD-10-PCS; 2020-08-04)
PROC: 0B110F4 Bypass Trachea to Cutaneous with Tracheostomy Device, Open Approach (ICD-10-PCS; 2020-08-08)
PROC: 0DB64ZZ Excision of Stomach, Percutaneous Endoscopic Approach (ICD-10-PCS; 2020-08-10)
PROC: 0DBU4ZZ Excision of Omentum, Percutaneous Endoscopic Approach (ICD-10-PCS; 2020-08-10)
PROC: 0DHA4UZ Insertion of Feeding Device into Jejunum, Percutaneous Endoscopic Approach (ICD-10-PCS; 2020-08-10)
PROC: 30233R1 Transfusion of Nonautologous Platelets into Peripheral Vein, Percutaneous Approach (ICD-10-PCS; 2020-08-12)
DX: A41.9 Sepsis, unspecified organism (principal); I26.99 Other pulmonary embolism without acute cor pulmonale; J69.0 Pneumonitis due to inhalation of food and vomit; K29.71 Gastritis, unspecified, with bleeding; J96.21 Acute and chronic respiratory failure with hypoxia; J96.22 Acute and chronic respiratory failure with hypercapnia; G92 Toxic encephalopathy; I67.83 Posterior reversible encephalopathy syndrome; U07.1 COVID-19; J12.89 Other viral pneumonia; D68.59 Other primary thrombophilia; E87.0 Hyperosmolality and hypernatremia; D62 Acute posthemorrhagic anemia; C16.9 Malignant neoplasm of stomach, unspecified; K56.7 Ileus, unspecified; K31.1 Adult hypertrophic pyloric stenosis; G62.81 Critical illness polyneuropathy; K21.9 Gastro-esophageal reflux disease without esophagitis; I95.9 Hypotension, unspecified; E11.65 Type 2 diabetes mellitus with hyperglycemia; E03.9 Hypothyroidism, unspecified; R13.10 Dysphagia, unspecified; R65.20 Severe sepsis without septic shock; J10.1 Influenza due to other identified influenza virus with other respiratory manifestations; R74.01 Elevation of levels of liver transaminase levels; G40.909 Epilepsy, unspecified, not intractable, without status epilepticus; E88.09 Other disorders of plasma-protein metabolism, not elsewhere classified; E80.6 Other disorders of bilirubin metabolism; E87.6 Hypokalemia; I10 Essential (primary) hypertension; D47.3 Essential (hemorrhagic) thrombocythemia; I16.0 Hypertensive urgency; B96.1 Klebsiella pneumoniae [K. pneumoniae] as the cause of diseases classified elsewhere; Z90.49 Acquired absence of other specified parts of digestive tract; Z23 Encounter for immunization
CPT/HCPCS: 10078; 10081; 27000; 50101; 50222; 50386; 50403; 50525; 50555; 50558; 50739; 50740; 51489; 51620; 52265; 52266; 53307; 53310; 53312; 54022; 54118; 55326; 56462; 56525; 56526; 56531; 57092; 62110; 62900; 65090; 85076

== ENCOUNTER → 2020-09-21 | Outpatient (CLI) | payer OTHER ==
[~2020-09-21] MED LIST changes: +ARIXTRA7.5 MG/0.6 SUBQ; +CATAPRES-TTS 20.2 MG TRANSDERM; +CATAPRES0.1 MG PER TUBE; +CORTEF 20 MG TA20 MG PO; +DIOCTO50 MG/5 ML PER TUBE; +IPRAT-ALBUT 0.5-3 ML INH; +LANTUS SUBQ; +LOPRESSOR5 MG/5 ML IV; +OXYCODONE20 MG/1 ML PER TUBE; +POTASSIUM20 MEQ/15 PER TUBE; +PREVACID 15 MG15 M4 DISSOLVE; +SENNA8.8 MG/5 M PO; +SOLU-CORTEF100 MG IV
== END ==
LOC: MRI 09:29
PROVIDERS: ATTEND Internal Medicine
DX: H53.131 Sudden visual loss, right eye (principal); R51.9 Headache, unspecified

== ENCOUNTER 2020-10-04 11:13 | Inpatient (IN) | payer OTHER ==
[~2020-10-04] VITALS: Ht 152.4 cm; Wt 63.0 kg
--- NOTE | ~2020-10-04 | EMS ---
[address] [address] EMS Patient Care Report Name: ALY JUSTICE Room #: REG INÉS Oro#: [id number] Admission: 10/04/20 Attend Phys: Discharge: Date of : 83 Report #: [id number] THIS REPORT FOR: //name// Report Transmitted: 10/04/2020 11:32 EMS Care Summary [place], [place]/[facility] Incident [id number] @ 10/04/2020 10:26 Incident Location [address] [place] [address] [address] [place] [address] Patient ALY JUSTICE-KULWINDER Female, 35 Years 1985 Patient Address [address] [address] Patient History Hypertension (HTN),Seizures,Gastro-Esophageal Reflux Disease (GERD),Pneumonia,Sepsis,Stomach Cancer,Respiratory Failure, Patient Allergies Other drug allergy, Patient Medications Senna, Metoclopramide, Atrovent, Clonidine, Guaifenesin, Tylenol, Loperamide, Melatonin, Fluticasone, Colace, Catapres, Metoprolol, Zofran, Pantoprazole, Chief Complaint SEIZURE Disposition Transported No Lights/Frannie Dispatch Reason Convulsions/Seizure Transported To [address] [address] EMS Patient Care Report Name: ALY JUSTICE Room #: REG INÉS Oro#: [id number] Admission: 10/04/20 Attend Phys: Discharge: Date of : 83 Report #: [id number] DISPATCHED NON EMERGENCY ON A SEIZURE. MET BY WOMAN THAT APPEARS UPSET AT THE ENTRANCE OF APARTMENT BUILDING. STATES THAT HER FRIEND HAD A SEIZURE AND THAT SHE WITNESSED IT LASTING ABOUT 30 SECONDS. PT HAS HISTORY OF SEIZURES. 35 Y/O FEMALE LAYING SUPINE ON BED IN BEDROOM OF APARTMENT UNRESPONSIVE. FRIEND DENIES PT GETTING INJURED AND STATES SHE WAS ON THE BED WHEN SHE SEIZED. GCS 3. PLACED ON MONITOR AND V/S'S OBTAINED. PT APPEARS POSTICTAL. H/R IS INCREASED. CALLED FOR LIFT ASSIST RESPONSE IN ORDER TO HELP MOVE PT. IV ESTABLISHED. 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 MOVED WITHOUT INCIDENT TO AMBULANCE. REATTACHED TO MONITOR. V/S'S OBTAINED. OXYGEN SATURATION IS DECREASED. OXYGEN ADMINISTERED PER PROTOCOL. 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 VERSED ADMINISTERED PER PROTOCOL. SEIZURE SUBSIDES. PT SUCTIONED DUE TO FOAMING SALIVA IN MOUTH. TRANSPORTED TO [facility]. REASSESSED ENROUTE. REMAINS GCS 3 AND UNRESPONSIVE. V/S'S CONTINOUSLY MONITORED ENROUTE. OXYGEN SATURATION IMPROVED. REPORT CALLED TO HOSPITAL. MOVED WITHOUT INCIDENT TO ER HOSPITAL BED 2. PT CARE TRANSFERRED TO ED RN. Initial Vitals @10:48P: 104,R: 16,BP: 144/94,CO: 2,SpO2: 90, @10:55P: 111,R: 18,BP: 132/84,Pain: 0/10,GCS: 3,CO: 0,SpO2: 99,Revised Trauma: 8, @10:59P: 114,R: 18,BP: 129/84,GCS: 3,CO: 0,SpO2: 99,Revised Trauma: 8, @10:35P: 111,R: 16,BP: 146/91,Pain: 0/10,GCS: 3,Glucose: 284,CO: 2,SpO2: 94,Revised Trauma: 8, Assessments @10:34MENTAL:Unresponsive,SKIN:HEENT:Head/Face: No Abnormalities,LUNG SOUNDS:ABDOMEN:PELVIS//GI:EXTREMITIES:Capillary Refill: Right Upper: < 2 Sec,Capillary Refill: Right Lower: < 2 Sec,Capillary Refill: Left Lower: < 2 Sec,Capillary Refill: Left Upper: < 2 Sec,PULSE:Radial: 2+ Normal,NEURO:Seizures,@11:05MENTAL:Unresponsive,SKIN:HEENT:Neck/Airway: No Abnormalities,LUNG SOUNDS:ABDOMEN:PELVIS//GI:EXTREMITIES:Capillary Refill: Right Lower: < 2 Sec,Capillary Refill: Left Upper: < 2 Sec,Capillary Refill: Left Lower: < 2 Sec,Capillary Refill: Right Upper: < 2 Sec,PULSE:Radial: 2+ Normal,NEURO: Impression Seizures Procedures @10:49Oxygen FlowRate: 2 Device: Nasal Cannula (NC) Response: ImprovedSucceeded@10:34ALS AssessmentResponse: UnchangedFailed@10:51Midazolam - 5 Milligrams (mg) - Intravenous (IV)Response: Improved@10:40Saline Lock 10cc (20 ga) Site: Hand-LeftResponse: UnchangedSucceeded@10:353-Lead ECGResponse: UnchangedSucceeded@10:42StretcherResponse: Unchanged@10:52Suction Response: ImprovedSucceeded [facility] [address] [place] [address] EMS Patient Care Report Name: ALY JUSTICE Room #: REG ER Roselyn.#: [id number] Admission: 10/04/20 Attend Phys: Discharge: Date of : 83 Report #: [id number] Timeline 10:24,Call Received 10:24,Dispatch Notified 10:26,Dispatched 10:27,En Route 10:31,On Scene 10:34,At Patient 10:34,ALS Assessment,Response: UnchangedFailed, 10:35,3-Lead ECG,Response: UnchangedSucceeded, 10:35,BP: 146/91 M,PULSE: 111,RR: 16 R,SPO2: 94 Ox,ETCO2: ,B,PAIN: 0,GCS: 3, 10:40,Saline Lock 10cc 20 ga Site: Hand-Left,Response: UnchangedSucceeded, 10:42,Stretcher,Response: Unchanged 10:48,BP: 144/94 M,PULSE: 104,RR: 16 R,SPO2: 90 Ox,ETCO2: ,BG: ,PAIN: ,GCS: , 10:49,Oxygen FlowRate: 2 Device: Nasal Cannula (NC) Response: ImprovedSucceeded, 10:51,Midazolam - 5 Milligrams (mg) - Intravenous (IV),Response: Improved 10:52,Suction Response: ImprovedSucceeded, 10:55,Depart Scene 10:55,BP: 132/84 M,PULSE: 111,RR: 18 R,SPO2: 99 Ox,ETCO2: ,BG: ,PAIN: 0,GCS: 3, 10:59,BP: 129/84 M,PULSE: 114,RR: 18 R,SPO2: 99 Ox,ETCO2: ,BG: ,PAIN: ,GCS: 3, 11:07,At Destination 11:19,Call Closed Disclaimer v1.1 Copyright 2020 [employer] This EMS Care Summary contains data elements from the applicable legal record (which may be displayed differently). It is designed to provide pertinent information for the following purposes: continuity of care, clinical quality, and state data reporting. The complete legal record is available to ED staff and administrators of the receiving hospital in [facility]s Patient Tracker. All data is provided "as is."
--- NOTE | ~2020-10-04 | HC ---
[facility] [place] [address] CONSULTATION Name: ALY JUSTICE Room #: 463-P ADM IN M.R.#: [id number] Admission: 10/04/20 Attend Phys: Isauro Martinez MD Discharge: Date of : 83 Report #: [id number] THIS REPORT FOR: cc: Wilbert Martínez MD, Magdy M. MD Khosla, Parveen K. MD ~ DATE OF SERVICE: 10/04/2020 HISTORY OF PRESENT ILLNESS: This is a 35-year-old female patient who was evaluated by me for seizure. I talked to the nurses looking after this patient in Emergency Room, earlier talked to the Emergency Room physician. This patient was admitted with multiple seizures and she was given benzodiazepine and subsequently given Keppra. She is not having anymore seizures, but she is still pretty confused. This patient's records were reviewed and this patient was here for COVID and subsequently developed PRES, that was because of hypertension. She had multiple seizures at that time. Sometime along the line, it looks like her Keppra was discontinued because that is not one of the medications she is on. She cannot provide me any good history in that regard. In fact, she does not provide any reliable history. A 14-point review of system was carried out. It is from the records. She has a gastric carcinoma. She had PRES last time. She has a history of bilateral pulmonary embolus. She underwent a tracheostomy and J-tube placement. It was a very complicated course in this patient. She went home, but I do not know if she required supervision or not. Presently, she is completely confused. REVIEW OF SYSTEMS: Positive for GERD, wisdom teeth extraction, anemia, seizure disorder, thrombocytopenia, PRES syndrome, encephalopathy. That is a relevant 14-point review of system I can get. PAST MEDICAL HISTORY: Positive for PRES and a pretty significant COVID problem and gastric carcinoma. FAMILY HISTORY: Unavailable. SOCIAL HISTORY: She went home, but I cannot get any more history. PHYSICAL EXAMINATION: Indicate she wakes up, she does not follow much commands. She appeared to be confused. She does not have any meningeal sign. I cannot do much of the examination, but I tried. She is moderately built individual. The blood pressure is 149/82, respirations 18, pulse is 108, temperature is 97.7. LABORATORY DATA: Her hemoglobin is 10.6. Her sodium is normal at 137. GFR is [address] [address] CONSULTATION Name: ALY JUSTICE Room #: 463-P [facility] IN .R.#: [id number] Admission: 10/04/20 Attend Phys: Isauro Martinez MD Discharge: Date of : 83 Report #: [id number] normal. test is negative. She had a CT scan of the head, which does not demonstrate any acute abnormality. IMPRESSION: This patient had PRES, which frequently give rise to seizure. I agree with restarting this patient on an anticonvulsant, but she need a repeat EEG as well as repeat MRI to look for seizure activity as well as any recurrence or residual from the PRES. I will try to schedule that. I cannot find anybody from the family who can give any history and I will continue to try to make an effort to contact somebody who can provide some better history and await these results. Thank you very much for this referral and if you have any question, please feel free to contact me. By: 1751 [id number] Elia Jesus MD /nt
[2020-10-04 11:16] VITALS: BP 140/97
[2020-10-04 11:56] LABS: ABSOLUTE NEUTROPHILS 7.7 thou/uL (1.4-8.2); BASOPHILS 1.4 % (0.0-2.0); EOSINOPHILS 0.2 % (0.0-3.0); HEMATOCRIT 33.4 % (37.0-47.0); HEMOGLOBIN 10.6 gm/dL (12.0-15.0); LYMPHOCYTES 20.8 % (24.0-44.0); MCH 25.2 pg (26.0-34.0); MCHC 31.7 g/dL (28.0-37.0); MCV 79.7 fL (80.0-100.0); MONOCYTES 6.9 % (1.0-8.0); PLATELET COUNT 395 thou/uL (150-400); POLYS 70.7 % (36.0-66.0); RBC 4.19 mil/uL (4.20-5.00); RDW 18.6 % (10.5-14.5); WBC 10.8 thou/uL (4.0-11.0)
[2020-10-04 11:59] LABS: CALCIUM 9.4 mg/dL (8.5-10.1); CREATININE 0.8 mg/dL (0.6-1.0); POTASSIUM 3.5 mmol/L (3.5-5.1)
[2020-10-04 12:05] LABS: ALBUMIN 3.5 g/dL (3.4-5.0); TOTAL BILIRUBIN 0.9 mg/dL (0.2-1.0); TOTAL PROTEIN 7.2 g/dL (6.4-8.2)
[2020-10-04 13:50] LABS: URINE BILIRUBIN NEGATIVE (Negative); URINE BLOOD NEGATIVE (Negative); URINE CLARITY CLEAR; URINE COLOR YELLOW; URINE GLUCOSE-RANDOM* NEGATIVE (Negative); URINE KETONES NEGATIVE (Negative); URINE LEUKOCYTES-REFLEX NEGATIVE (Negative); URINE NITRITE-REFLEX NEGATIVE (Negative); URINE PROTEIN (DIPSTICK) NEGATIVE (Negative); URINE UROBILINOGEN 0.2 E.U./dl (0.2-1.0)
[2020-10-04 13:57] LABS: ANISOCYTOSIS 2+; PLATELET ESTIMATE NORMAL
--- NOTE | 2020-10-04 14:23 | EKG ---
[place] [address] [place] [address] ELECTROCARDIOGRAM REPORT Name: ALY JUSTICE Room #: LEVI Oro#: [id number] Admission: 10/04/20 Attend Phys: Discharge: Date of : 83 Report #: [id number] [facility] ED Test Date: 2020-10-04 Test Time: 13:51:10 Pat Name: ALY JUSTICE Department: Room: Gender: F [employer] Director: kayli : 1985 Requested By: Stephane Boudreaux Order Number: [id number] MD: Merlin Fleming Measurements Intervals [place] Rate: 90 P: 0 NE: 157 QRS: 34 QRSD: 85 T: 42 QT: 360 QTc: 441 Interpretive Statements Sinus rhythm RSR' in V1 or V2, right VCD or RVH Artifact in lead(s) I,II,III,aVR,aVL,aVF,V2 Compared to ECG 07/09/2020 10:08:54 Right ventricular hypertrophy now present Sinus tachycardia no longer present Ventricular premature complex(es) no longer present Electronically Signed On 10-04-2020 14:23:25 RN MED SURG by Merlin Fleming [email or web address] <ELECTRONICALLY SIGNED> By: Merlin Fleming MD, FAC 10/04/20 1423 1351 [id number] Merlin Fleming MD, [facility] /EPI
[2020-10-04 15:06] LABS: AMP/METHAMP Negative (Negative); BARBITURATES Negative (Negative); BENZODIAZEPINES POSITIVE (Negative); COCAINE Negative (Negative); METHADONE Negative (Negative); OPIATES Negative (Negative); PCP Negative (Negative)
[2020-10-04 17:47] VITALS: BP 149/82
[2020-10-04 18:45] VITALS: BP 176/95
--- NOTE | 2020-10-04 19:09 | NUR ---
RECEIVED REPORT AND PT UP TO UNIT AT SHIFT CHANGE. ENDORSED REPORT TO NIGHT NURSE.
[2020-10-05 03:40] VITALS: BP 142/99
--- NOTE | 2020-10-05 04:18 | NUR ---
ADMIT PT HAD A WITNESSED SEIZURE AT HOME AND S.O. CALLED EMS AND PT HAD A WITNESSED SEIZURE ON ROUTE PER EMS. BP ELEVATED HAS HX OF HTN THAT CAN CAUSE SEIZURES. HAS CLONIDINE PATCH TO LEFT SHOULDER, HYDRALAZINE GIVEN WITH SOME EFFECT. PT POST ICTAL SLEEPING HEAVILY MOST OF SHIFT WOKE AT 330 AM AND ASKED HOW SHE GOT HERE. IMPULSIVE GOT UP 2 TIMES UNASSISTED, GAIT WEAK AND UNSTEADY. IVF'S INFUSING INTO LEFT NECK WITHOUT DIFFICUTY VOIDED X 2 CLEAR YELLOW URINE.
[2020-10-05 04:31] VITALS: BP 164/121
[2020-10-05 08:22] LABS: ABSOLUTE NEUTROPHILS 4.9 thou/uL (1.4-8.2); BASOPHILS 1.4 % (0.0-2.0); EOSINOPHILS 0.2 % (0.0-3.0); HEMATOCRIT 31.2 % (37.0-47.0); LYMPHOCYTES 29.6 % (24.0-44.0); MCH 24.9 pg (26.0-34.0); MCV 77.7 fL (80.0-100.0); MONOCYTES 8.2 % (1.0-8.0); PLATELET COUNT 382 thou/uL (150-400); POLYS 60.6 % (36.0-66.0); RBC 4.01 mil/uL (4.20-5.00); RDW 18.7 % (10.5-14.5); WBC 8.2 thou/uL (4.0-11.0)
[2020-10-05 08:34] LABS: CALCIUM 9.2 mg/dL (8.5-10.1); CREATININE 0.6 mg/dL (0.6-1.0); MAGNESIUM 1.7 mg/dL (1.8-2.4)
[2020-10-05 08:42] VITALS: BP 146/103
--- NOTE | 2020-10-05 12:24 | NUR ---
PATIENT IS IN BED RESTING, TOLERATED ALL MEDICATION WITHOUT DIFFICULTY. PATIENT REMAIN ALERT, AND ORIENTED X 3-4, ABLE TO VOICE NEED, HAS SOME PERIODS OF FORGETFULNESS. PATIENT USES BSC TO VOID, REQUIRES STAND-BY ASSIST. LUNGS DIMINISHED IN ALL LOBE PER AUSCULTATION. BS+X4, ABD SOFT NON-TENDER TO TOUCH. PRN TYLENOL GIVEN FOR C/O HEADACHE 10/10, WITH POSITIVE EFFECT PAIN DECREASED TO 5/10 UPON REASSESSMENT. IV LINE TO LEFT NECK DISLODGED, IV TEAM ACCESSED A NEW LINE TO RIGHT ARM, SAME PATENT, NO SIGN OF INFILTRATION NOTED. PATIENT IS CURRENTLY OUT OF UNIT TO RADIOLOGY FOR MRI. NO SIGN OF ACUTE DISTRESS NOTED, WILL CONTINUE TO MONITOR.
[2020-10-05 12:44] LABS: ANISOCYTOSIS 1+; LARGE PLATELETS OCCASIONAL; OVALOCYTES FEW; POIKILOCYTOSIS SLIGHT; TEARDROPS OCCASIONAL
--- NOTE | 2020-10-05 14:29 | NUR ---
Nutrition: REC nocturnal tube feeding regimen of Vital AF to run at 60 mL/hr from 7p-7a. If no feeding pump available, REC 3 cartons Vital HP overnight via gravity method. RD will monitor oral intake for further recs.
--- NOTE | 2020-10-05 15:54 | NUR ---
Case opened to follow for dc planning. Pt known to cm from previous admission in the fall with lengthy hospital course d/t critical illness and dc to [facility] 08-26-20. Pt had covid/flu A/B/gastric cancer. Budget Technician visited with the pt via phone. She was admitted with seizuresx 2. MRI today and neuro w/u in progress. The pt is a&ox4 but a little "fuzzy". She reports that she came home from [place] about a week ago. She is indep with gait and adl's and was doing her enteral tube feedings at night but she has been eating po diet as well. She would like to have the j tube removed. She has f/u with per pcp Dr. Blakely and her oncologist. Her biggest concern at this time is lack of insurance. Her insurance with [facility] lapsed 09/29/20. She indicates that she has started applying for [place] medicaid but would appreciate assistance. [facility] referral initiated and they will try to visit with her this afternoon. The pt lives an an apt with 5 steps to enter. NO DME other than her enteral pump and formula. She lives there with her young dtr and a friend. Her sign other Sin is her emergency contact and dpoa. She has support and help with care for her dtr. Support provided. Cm to follow along and assist with scripts at dc. PT/OT evals are pending. Will follow.
[2020-10-05 20:04] VITALS: BP 134/89
--- NOTE | 2020-10-06 05:08 | NUR ---
PT IS A/O X4 AND IS PLEASANT AND COOPERATIVE. UP SBA TO THE BSC. PT IS ON ROOM AIR AND DENIES ANY C/O PAIN OR DISCOMFORT. FALL PRECAUTIONS AND SEIZURE PRECAUTIONS IMPLEMENTED. TUBE FEEDING CONNECTED DIRECTED. WILL CONTINUE TO MONITOR.
[2020-10-06 05:40] LABS: CALCIUM 8.9 mg/dL (8.5-10.1); CREATININE 0.6 mg/dL (0.6-1.0); POTASSIUM 3.4 mmol/L (3.5-5.1)
[2020-10-06 07:26] VITALS: BP 125/72
--- NOTE | 2020-10-06 12:47 | NUR ---
ASSUMED PT CARE THIS AM. COMPLAINING OF STOMACH PAIN RESPONDS TO PAIN MEDS. REPORTS HISTORY OF DIFFICULTY SEEING FROM RIGHT EYE SINCE LAST HOSPITAL STAY. PT AMBULATORY TO THE BEDSIDE COMMODE. IV PATENT, FLUIDS INFUSING.
--- NOTE | 2020-10-06 16:10 | NUR ---
CARE TEAM INDIATED THAT PT IS PROGRESSING TOWARD GOAL OF DISCHARGE. PT IS OFF IV FLUIDS. TO MONITOR BP CLOSELY. PT WILL NEED ASSISTANCE WITH MEDS UPON DC. CM TO FOLLOW INDICATED WITH DC PLANNING.
[2020-10-06 16:12] VITALS: BP 134/88
--- NOTE | 2020-10-07 04:07 | NUR ---
ASSUMED CARE OF PT AT 1900. PT IS A/O X4 AND IS UP WITH SBA ASSIST TO THE BSC. PT APPEARS TO BE VERY TIRED THIS SHIFT. HAS NOT BEEN A WAKE MUCH OR TALKED MUCH. C/O SEVERE HEAD PAIN. PRN PAIN MEDICATION GIVEN DIRECTED. JTUBE FEEDING HOOKED UP AND INFUSING DIRECTED. B/P LOWERED COMPARED TO PREVIOUS NOC. WILL CONTINUE TO MONITOR AND CHECK BLOOD PRESSURE AGAIN THIS AM. AT THIS TIME PT IS LYING IN HER BED AND APPEARS TO BE SLEEPING. FALL PRECAUTIONS ARE IN PLACE, CALL LIGHT IS WITHIN REACH. WILL CONTINUE TO MONITOR.
[2020-10-07 05:23] VITALS: BP 141/93
[2020-10-07 07:16] VITALS: BP 145/98
--- NOTE | 2020-10-07 15:05 | NUR ---
Assumed pt care at 7am.Pt in bed very lethargic but arousable.Assessment completed.vss.Pt c/o headache,norco given as ordered with relief.Dr Mcintosh here,order noted.Pt has poor appetite but drank only juice and milk.Family called today and updates given.Pt was up in chair for one hour today but transfered to bed.Fall bundle in place.Will continue to monitor.
[2020-10-07 15:36] VITALS: BP 145/84
[2020-10-07 20:35] VITALS: BP 123/95
--- NOTE | 2020-10-08 02:41 | NUR ---
ASSUMED CARE OF PT AT 1900. PT IS A/O X1. IS ONLY ANSWERING YES/NO QUESTIONS BUT IS NOT RESPONDING TO OPEN/ENDED QUESTIONS. IS UP SBA TO THE BSC. REQUESTED FOR NURSE TO TURN UP THE TV BUT DID SO BY POINTING. JTUBE IN PLACE TO LEFT SIDE OF ABDOMEN AND IS RUNNING VITAL AF AT 60 ML/HR. C/O HEAD PAIN, NAUSEA AND VOMITING. PRN MEDICATIONS GIVEN DIRECTED FOR PAIN AND NAUSEA. FALL AND SEIZURE PRECAUTIONS ARE IN PLACE, CALL LIGHT IS WITHIN REACH. WILL CONTINUE TO MONITOR.
[2020-10-08 07:26] VITALS: BP 113/73
--- NOTE | 2020-10-08 13:24 | EEG ---
[facility] [place] [address] ELECTROENCEPHALOGRAM Name: ALY JUSTICE Room #: 463-P ADM IN M.R.#: [id number] Admission: 10/04/20 Attend Phys: Isauro Martinez MD Discharge: Date of : 83 Report #: [id number] THIS REPORT FOR: //name// HISTORY: The patient is a 35-year-old female who presents with headache and altered mental status. An EEG is requested for further evaluation. DESCRIPTION OF PROCEDURE: The awake record consists of symmetric moderate amplitude 8 cycles per second posterior dominant rhythm, which attenuates with eye opening. During the recording, frequent sharp waves are seen over the occipital head region at O1. Diffuse low to moderate amplitude bilaterally symmetrical, 4-5 cycles per second activity is seen as well. No subclinical seizures are noted. IMPRESSION: This is an abnormal adult awake record consistent with frequent epileptiform discharges over the left occipital head region. No subclinical seizures are noted. Underlying focal pathology should be ruled out. <ELECTRONICALLY SIGNED> By: Julieta Serrano DO 10/08/20 1324 1530 [id number] Julieta Serrano DO /nt
[2020-10-08 14:50] VITALS: BP 108/77
--- NOTE | 2020-10-08 19:32 | NUR ---
Assumed pt care at 7am.Pt in bed sleeping without c/o.Assessment completed.vss Pt has poor appetite but more alert and active today.Pt able to transfer self from bed to bsc and cleansed herself .Dr Martinez here,no new order noted but stated that pt will be dc home with home health in am.No verbal c/o.Tube feeding will be started tonite as ordered.Will continue to monitor.
[2020-10-08 20:48] VITALS: BP 107/66
--- NOTE | 2020-10-09 05:09 | NUR ---
Pt. rested quietly at intervals during the night when checked on during frequent rounds. She offers no c/o pain. Up to the bedside comode with assistance of one. Peg tube patent upon auscultation. Bed alarm is on.
[2020-10-09 07:30] VITALS: BP 100/60
[2020-10-09] MEDS ORDERED: KEPPRA 500 MG500 M1 PO (10:32)
[2020-10-09 12:09] VITALS: BP 100/60
--- NOTE | 2020-10-09 14:00 | NUR ---
PT ASSESSED AT START OF SHIFT. MENTATION SLOW AND IS FORGETFUL. BP BETTER. NO SEIZURE ACTIVITY NOTED. DR. CASTRO IN THIS AM. PT OK'D FOR DC HOME. DC INSTRUCTIONS REVIEWED W/ PT AND SIG OTHER. DISCHARGED AT THIS TIME W/ ALL BELONGINGS.
== END 2020-10-09 14:00 | disposition home health service (06) | DRG 101 ==
LOC: ER 11:13 → 4W 15:16 → EROBS 15:16 → 4W 18:24 → 4S 10-09 07:39
PROVIDERS: Emergency Medicine; Nurse Practitioner; ADMIT Hospitalist; ATTEND Hospitalist
DX: G40.909 Epilepsy, unspecified, not intractable, without status epilepticus (principal); G93.40 Encephalopathy, unspecified; G81.91 Hemiplegia, unspecified affecting right dominant side; E87.0 Hyperosmolality and hypernatremia; K21.9 Gastro-esophageal reflux disease without esophagitis; I10 Essential (primary) hypertension; Z86.16 Personal history of COVID-19; Z90.49 Acquired absence of other specified parts of digestive tract; Z85.028 Personal history of other malignant neoplasm of stomach; Z79.899 Other long term (current) drug therapy; Z88.1 Allergy status to other antibiotic agents; Z93.0 Tracheostomy status; D64.9 Anemia, unspecified
CPT/HCPCS: 10040